=== PATIENT | female | born 1935 | race Caucasian/White ===

== ENCOUNTER 2025-02-11 07:24 | Inpatient (IN) | payer MEDICARE, SELFPAY ==
--- OUTSIDE RECORDS SUMMARY | 2024-03-31 18:59 | XMS_ITS | Continuity of Care Document ---
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 [place] [id number] Signatures:Dieudonne Albert (Patient Services Specialist) (Signed on 03/20/2024 14:25) AuthoredLast Updated: 03/20/2024 14:25 by Dieudonne Albert (Patient Services Specialist) Franky ChaseBmgpmb-37-Qjc-2024 .All information listed on this discharge instruction note has been verballydiscussed with the patient prior to signature and discharge.Once signed, place in the chart. Patient Signature Page You have been provided discharge instruction sheets on the following topics:, Aspirin (Printed); After Knee Replacement: Controlling Swelling (Printed);Discharge Instructions for Total Knee Replacement (Printed); After KneeReplacement: Managing Pain at Home (Printed); [facility] Orthopedic DischargeEducation (Video) (Printed); [facility] Managing Pain When You are Home (Printed);[facility] Orthopedic Discharge Instructions (Printed).FollowMyHealthIf you v e ever been a [facility] patient, you can register now for your[facility] account! There are two easy ways to get started:If you provided your email address to us during registration, please check youremail inbox for an invitation to register for a Patient Portal account. Simplyfollow the click here link in the email for [id number] registrationinstructions.If you did not provide your email address, you can still create a portalaccount and then request access to your records at the following web address:[email or web address] portal registration assistance or questions related to the portal, pleasecontact our FollowMyHealth team at [phone] (Monday-Monday, 9:30 am - 4:30pm) or [email or web address].You may also connect portal accounts utilizing HealthFleet.com and/or [employer] Technologywhich can bring together information from multiple portal accounts for onepatient. To connect your FMHportal account with other portals connected to [employer]Fleet.com or [employer], visitSmart Hydro Power or download [employer] to your mobile device.By signing below you acknowledge receipt of:The above printed topics and understanding of these instructions, as well asthe discharge instructions provided to you.All of your personal belongings that you have brought in to the hospital withyou upon discharge.Patient Signature: Signed: 03/20/2024*The Signature Page remains in the patient's medical record. The remainingpages are given to the patient.*.-Discharged From: Outpatient ServicesDischarged To: Home with Home Health-FOLLOW UP Hammad Tinoco - Orthopaedic Surgery - [phone] scheduledThank you for choosing [facility] HospitalYou may receive text messages from our Transitions of Care Team once you returnhome.The messages will come from the following number: [phone].Please respond promptly so that our team can assist you and address questionsyou may have.Discharge Plan Follow Up:Home with Home HealthProvider Name: danya Provider Contact#: [phone] INSTRUCTIONSDischarge Instruction Sheets Given: , Aspirin (Printed); After KneeReplacement: Controlling Swelling (Printed); Discharge Instructions for TotalKnee Replacement (Printed); After Knee Replacement: Managing Pain at Home(Printed); [facility] Orthopedic Discharge Education (Video) (Printed); [facility] ManagingPain When You are Home (Printed); [facility] Orthopedic Discharge Instructions(Printed)Discharge Orders:No Discharge Orders have been ordered.Additional Physician Instructions: Discharge instructions:1. Continue normal meds and picker tender helper new meds sent to your pharmacy2. WBAT with therapy3. Home health for as needed dressing changes4. Follow up as scheduled5. Continue mechanical means as well as prescribed blood thinner aspirin 81mgonce daily for DVT prophylaxis- Home Health will contact you.- Keep your incision clean and dry.- Weight bearing as tolerated to operative extremity.- Take your aspirin or blood thinner as directed to prevent a blood clot.- You may use ice at home to reduce pain and swelling.- Take your prescribed pain medication as needed.- Do NOT drive until cleared by your doctor.- If you have dean/sutures, they will be removed at your follow upappointment with your doctor or by your home health nurse.- Make sure to get plenty of protein in your diet to promote healing.- Minimize constipation (a common side effect of most pain medications) byensuring that you drink plenty of fluids and consume adequate amounts of fiber.You may need to use over the counter stool softeners like Miralax, Benefiber,or Colace. Discontinue use of your stools become loose or watery.- When to call your doctor: If your pain medication is not relieving your pain. If you are having side effects from any prescribed medications. If you are bleeding or bruising very easily. If you have sharp abdominal pain, or a severe headache. If you think you have an infection or blood clot. If your incision opens or bleeds a lot. If you fall even if you feel you are not hurt.If you are having shortness of breath, chest pain, or think you may be having astroke, CALL 911.For further questions, contact your surgeon at the number listed on page one.If you need to contact the [facility], call [phone].FollowMyHealth:[facility]/API Patient Portal instructions given? Yes, information is provided below,and on the patient signature page.FollowMyHealthIf you v e ever been a [facility] patient, you can register now for your[facility] Patient [facility] account! There are two easy ways to get started:If you provided your email address to us during registration, please check youremail inbox for an invitation to register for a Patient Portal account. Simplyfollow the click here link in the email for [id number] registrationinstructions.If you did not provide your email address, you can still create a portalaccount and then request access to your records at the following web address:[email or web address] portal registration assistance or questions related to the portal, pleasecontact our [facility] team at [phone] (Monday-Monday, 9:30 am - 4:30pm) or [email or web address].You may also connect portal accounts utilizing HealthFleet.com and/or Inv[employer] Information Technologywhich can bring together information from multiple portal accounts for onepatient. To connect your Hportal account with other portals connected to HealthFleet.com or [employer], visitSmart Hydro Power or download [employer] to your mobile device.Patient Belongings Disposition:What belongings did the patient bring? ClothingDIETResume Home DietACTIVITYNo Heavy Lifting, Pushing, or PullingDISCHARGE DIAGNOSISUnilateral primary osteoarthritis, left kneeGOALAdhere to all and return to baseline. This includes following up with listedproviders, adhering to provided printed education materials (, Aspirin(Printed); After Knee Replacement: Controlling Swelling (Printed); DischargeInstructions for Total Knee Replacement (Printed); After Knee Replacement:Managing Pain at Home (Printed); [facility] Orthopedic Discharge Education (Video)(Printed); [facility] Managing Pain When You are Home (Printed); [facility] OrthopedicDischarge Instructions (Printed), take medications as outlined in dischargemedication summary, and complete any ordered discharge test(s).- DISCHARGE MEDICATION SUMMARYMedication Name, Instructions, and Indication for Use ___Biotin - ____ _Calcium - ____ _cephalexin 500 mg oral capsule - 1 cap(s) orally 3 times a day ___Cranberry - ____ _Ecotrin Adult Low Strength 81 mg oral delayed release tablet - 1 tab(s) orallyonce a day ___estradiol 0.5 mg oral tablet - 0.5 tab(s) orally once a day ___levothyroxine 25 mcg (0.025 mg) oral tablet - 1 tab(s) orally once a day (inthe morning) lisinopril 2.5 mg oral tablet - 1 tab(s) orally once a day ___Vitamin B12 - ____ _Vitamin C - ____ _ Last Dose Taken: Last Dose Taken: Last Dose Taken: Last Dose Taken: Last Dose Taken: Last Dose Taken: Last Dose Taken: Last Dose Taken: Last Dose Taken: Last Dose Taken: DISCHARGE PRESCRIPTIONSIf your prescription was e-submitted you can pick it up at listed pharmacyotherwise your nurse or physician will give you a printed prescription.If you are unable to get your prescriptions filled, call your HealthcareProvider as soon as possible. Your care provider needs to be made aware of anymedications you are unable to take as prescribed.Any electronically submitted prescriptions were sent to the following pharmacylocation(s):1. cephalexin 500 mg oral capsule - [id number] - [address] [phone]. Ecotrin Adult Low Strength 81 mg oral delayed release tablet - [id number] [address] [facility] THE FOLLOWING HOME MEDICATIONS You may see a medication above and in the below STOP taking med list. Thisis usually due to the dose changing or the med being discontinued and thenre-ordered. Please clarify with your nurse before leaving if there are anyquestions.Electronic Signatures:Franky Chase (RN) (Signed 03/20/2024 14:07) Authored: Instructions, Med Summary, *Last Updated: 03/20/2024 14:07 by Franky Chase (RN) Kkoi Samuel-20-Mar-2024 Plan of Care:-This document is for Nursing Use Only. DO NOT GIVE TO PATIENT. Nursing is tocomplete Patient Discharge Instructions document to be given to patientToday's Date: 4Discharged from: OutpatientDischarge Diagnosis:For Patient Discharge Instructions: Unilateral primary osteoarthritis, leftkneeFollow up with:Hammad Bello - Orthopaedic Surgery - [phone] scheduledDiet: See GA OrderSupplements: No Nutrition Orders are in the Active status.Activity: See DC OrderFollow up labs: No Discharge Orders have been ordered.Home Meds:Biotin - Calcium -cephalexin 500 mg oral capsule - 1 cap(s) orally 3 times a dayCranberry - Ecotrin Adult Low Strength 81 mg oral delayed release tablet - 1 tab(s) orallyonce a dayestradiol 0.5 mg oral tablet - 0.5 tab(s) orally once a daylevothyroxine 25 mcg (0.025 mg) oral tablet - 1 tab(s) orally once a day (inthe morning)lisinopril 2.5 mg oral tablet - 1 tab(s) orally once a dayVitamin B12 -Vitamin C -New Prescriptions:Any electronically submitted prescriptions were sent to the following pharmacylocation(s):1. cephalexin 500 mg oral capsule - [facility] #[id number] - [address] [facility] - [phone]. Ecotrin Adult Low Strength 81 mg oral delayed release tablet - [facility] #[id number] - [address] [facility] - additional Instructions: Discharge instructions:1. Continue normal meds and picker tender helper new meds sent to your pharmacy2. WBAT with therapy3. Home health for as needed dressing changes4. Follow up as scheduled5. Continue mechanical means as well as prescribed blood thinner aspirin 81mgonce daily for DVT prophylaxis- Home Health will contact you.- Keep your incision clean and dry.- Weight bearing as tolerated to operative extremity.- Take your aspirin or blood thinner as directed to prevent a blood clot.- You may use ice at home to reduce pain and swelling.- Take your prescribed pain medication as needed.- Do NOT drive until cleared by your doctor.- If you have dean/sutures, they will be removed at your follow upappointment with your doctor or by your home health nurse.- Make sure to get plenty of protein in your diet to promote healing.- Minimize constipation (a common side effect of most pain medications) byensuring that you drink plenty of fluids and consume adequate amounts of fiber.You may need to use over the counter stool softeners like Miralax, Benefiber,or Colace. Discontinue use of your stools become loose or watery.- When to call your doctor: If your pain medication is not relieving your pain. If you are having side effects from any prescribed medications. If you are bleeding or bruising very easily. If you have sharp abdominal pain, or a severe headache. If you think you have an infection or blood clot. If your incision opens or bleeds a lot. If you fall even if you feel you are not hurt.If you are having shortness of breath, chest pain, or think you may be having astroke, CALL 911.For further questions, contact your surgeon at the number listed on page one.If you need to contact the [facility], call [phone].E-FORCSE/PDMP:Electronic Signatures:Koki Samuel (ANDREA) (Signed 03/20/2024 11:52) Authored: Instructions, Home Med List, Plan of CareLast Updated: 03/20/2024 11:52 by Koki Samuel (ANDREA) Hammad Bello-20-Mar-20 Immediate Post Operative Note:Date of Procedure: 03-20-2024 Please see IntraOperative Documentation forProcedure Start/Stop Times.Pre-Operative Diagnosis: Osteoarthritis of the right knee.Primary Surgeon: Hammad Bello.Solar Installation Helper(s): Regan.Type of Anesthesia: Spinal.Brief Description of the Procedure: Right Right total knee replacement andautograft bone grafting to the right tibial plateau.Findings: Right knee osteoarthritis.Complications: There were no complications noted.Estimated Blood Loss: 20 cc.Blood Products Administered: None.Specimen Removed: None/not applicable.Prosthetics, grafts, tissues, transplants, or devices implanted: Yes (Pleasesee IntraOperative Documentation for details).Post-Operative Diagnosis: Osteoarthritis of the right knee.Procedure Performed:Other procedure and intervention (see Brief Description).Electronic Signatures for Addendum Section:Hammad Bello) (Signed Addendum 03/20/2024 13:21) Please change all references in the dictation to reflect a left knee includingleft knee osteoarthritis as the preoperative diagnosis, left total kneereplacement, and left knee osteoarthritis as the postoperative diagnosis.Electronic Signatures:Hammad Bello) (Signed 03/20/2024 11:47) Authored: Immediate Post Operative Note, Procedure PerformedLast Updated: 03/20/2024 13:21 by Hammad Bello) Hammad Bello-20-Mar-20 DATE OF SURGERY: March 204PREOPERATIVE DIAGNOSIS: Osteoarthritis of the left knee.POSTOPERATIVE DIAGNOSIS: Osteoarthritis of the left knee.PROCEDURE: Left total knee replacement and autograft bone grafting to the lefttibial plateau.SURGEON: Hammad Bello MDANESTHETIC: Spinal anesthesia.ESTIMATED BLOOD LOSS: 20mLINDICATIONS FOR THE PROCEDURE: The patient is an 88-year-old female with ahistory of slowly progressive pain in the left knee. The patient's symptomshave been refractory to conservative measures including but not limited toactivity modification, oral analgesics, oral anti-inflammatory medications andexercise regimen, a physician-directed therapy program and injection of theknee on at least one occasion. The patient had x-rays, which revealed definitejoint space narrowing as well as agvh-un-nvau contact in the lateralcompartment of the knee with subchondral sclerosis and arthritic bone cystspresent. The patient presents at this time for left total knee replacementafter failure of conservative measures.DESCRIPTION OF PROCEDURE: After obtaining full informed consent, the patientwas brought to the operating room. She was placed on the OR table in supineposition. Spinal anesthetic was administered by the anesthesia service. Ipersonally confirmed that the left lower extremity was the operative extremity. I also confirmed that the patient had received 2g of IV Ancef prior to theprocedure. The left lower extremity was prepped and draped in standard sterilefashion using a ChloraPrep scrub. The tourniquet was inflated to 300mmHg. Inoted a small skin tear that was present preoperatively on the anterior medialknee at about the level of the joint line. This area was about the size of thetip of her small finger. It was not near the incision site and I elected toproceed. The tourniquet was inflated to 300mmHg. The 10 blade scalpel wasused to make a midline incision. The knee was opened through a medialparapatellar incision. The intramedullary guide was used to position thedistal femoral cutting block. The angle was set at 3 degrees of valgusalignment. The oscillating saw was used to make the distal femoral cut. Thefemur was sized to a size 6 component. A size 6 cutting block was placed ontothe distal femur. The oscillating saw was used to make the femoral cuts. Theremaining anterior cruciate ligament was removed using the rongeur. Theposterior cruciate ligament and neurovascular structures were protected with ablunt Hohmann retractor. The combination intramedullary and extramedullaryguide was used to position the proximal tibial cutting block. The oscillatingsaw was used to make the proximal tibial cut. The tibia was sized to a size Dcomponent. The tibia was prepared using the tibial drill. A size D trial gvrh96ed of polyethylene thickness and a size 6 narrow femoral trial were found fahad the appropriate size combination to achieve good ligamentous stability and afull range of motion. The patella was found to track with absolutely nopressure. The patella was examined. I found some osteophytes present. Thesewere removed using the rongeur. The patella was otherwise in good conditionand I elected not to resurface it. The trial components were removed from theknee. The knee was irrigated with pulse lavage irrigation. The proximal tibiawas found to have an arthritic bone cyst in the posterior central portion ofthe tibial plateau. The contents of the cyst were removed using the pituitaryrongeur. Autograft bone graft was obtained from the femoral and tibialcuttings and packed into the defect. This was tamped into position. The sizeD Persona tibial component with 10mm of polyethylene thickness was placed intothe proximal tibia. A size 6 narrow Persona femoral component was placed ontothe distal femur. All of the components were made by the CecilyCyberVision Text.The knee was placed in full extension. The tourniquet was deflated for totaltourniquet time of 32 minutes. Hemostasis was obtained using theelectrocautery. The medial parapatellar incision was closed using #1 PDS. Thesubcutaneous tissues were closed using 2-0 Monocryl. Skin was closed using 0Prolene due to the patient's very thin skin. A sterile dressing was applied.The patient tolerated the procedure well. There were no complications and thepatient was returned to the recovery room in stable condition. While inrecovery room, she was found to have good distal pulses and capillary refill aswell as intact sensory and motor function in the peroneal and tibial nervedistribution of the left lower extremity. Hammad Bello M.D. T: 03/20/2024 10:03:26JobID: [id number]: [id number] Signatures:Hammad Bello) (Signed on 03/20/2024 11:40) AuthoredInterMEDHAT reina) (Entered on 03/20/2024 10:03) EnteredLast Updated: 03/20/2024 11:40 by Hammad Bello) Charo Hopson-20-Mar-2024 [facility] ReassessmentDischarge PlanningCase manager product anticipates discharge plan will be: Home with Home HealthProvider Name: danya. Provider Contact#: [phone] Choice Education: Discussed with the patient and/or the individualacting in the patients behalf, the patients right to choose a home health careprovider. A list of providers which includes their reported quality measureswas presented to the patient and/or the individual acting on the patientsbehalf.Interdisciplinary Rounds Notes: Danya [place] [facility] [phone] in ECINIs the patient ready for discharge? [facility] Discharge Plan CoordinationPending-Patient is NOT READY for discharge.Electronic Signatures for Addendum Section:Charo Hopson (RN) (Signed Addendum 03/20/2024 14:28) Net Making Supervisor notified patient will need a RW; ordered and DME Dieudonne made awareto deliver to PACU.Electronic Signatures:Charo Hopson (CHRISTOPHER) (Signed 03/20/2024 09:21) Authored: [facility] Reassessment, *Last Updated: 03/20/2024 14:28 by Charo Hopson (CHRISTOPHER) Igor Curry-20-Mar-2024 PRE Proc:INITIAL COUNT: Counted Items Soft Items, SharpsPersonnel Performing Count Igor Curry (RN)Jelly Jackson (SCAFFOLDING HELPER)PATIENT ASSESSMENT: Identifiers Patient Name, Date of (), Visit IDID Band Present on non-operative limbPATIENT PREOP ASSESSMENT Awake, Alert and OrientedPERIPHERAL IV 1: Location RightDressing Clean, Dry, Intact, Pain Free, Infusion Without Resistance, SkinNormal MetGauge 20 gaugeMaintenance Flushed, Continuous infusateDate of Dressing Change [id number] Info New IV StartInsertion Date [id number] Management for Insertions DistractionCIRC PREOP VERIFICATION: Verifications NPO Status Confirmed, History andPhysical on Chart and Updated Per Policy, Consent Signed, No Abbreviations,Agrees with Surgeon Order and Schedule, The Risks Benefits and AlternativeStatement Signed by Surgeon, Correct Procedure, Site and Level Verified,Special Equipment and/or Devices Available, Implants VerifiedVerified By Igor Curry (RN)Procedure:PATIENT POSITION SupinePATIENT WAS POSITIONED PER [facility] POLICIES AND PROCEDURESOR Table Standard OR TableTable Overlay NonePOSITIONING All Positioning Equipment Checked for Safety Per ManufacturerGuidelines, Positioning Validated by Physician, Breast and Nipples Free FromPressureBODY POSITIONING Cradle Foam Headrest, Foam Padding, Wrist SupportARM POSITIONING Arms Padded and Secured on Armboards, Arms Padded Bilateral andAngled Less Than 90 Degrees with Palms Up, Elbows PaddedPositioned By Freddy MossSAFETY DEVICES Safety StrapSafety Strap Location ChestSURGICAL SKIN ANTISEPSIS: Agent Chloraprep Dried 3 Min Prior to DrapeSkin Preparation Region left kneeSkin Preparation Body Part Operative SiteLaterality/Aspect LeftSkin Preparation Performed By Igor Curry (RN)TIME OUT: Anesthesia/Senior Ruby Developer Review Anesthesia and Senior Ruby Developer VerifiedPatient ID Prior to InductionFire Risk Score 2Staff Members Participating in Time Out mary foster (null)daren cameron (null)mitchell moreira (null)Jelly Jackson (SCAFFOLDING HELPER)Amanda Lynn (SCAFFOLDING HELPER)Igor Curry (RN)chloe samuel (null)Liliana Fernandez (MIX HOUSE TENDER)Hammad Bello)Fire Risk Policy Protocol Implemented Per Policy Checklist Verifications Patient Verified, Accurate Consent Form Signed byPatient and Surgeon, Agreement on Procedure to be Performed, Patient PositionVerified, Correct Site(s) and Side(s) Marked and Visible After Draping,Antibiotic Administration Verified, Equipment, Devices and Implants AvailableELECTROSURGICAL UNIT: Unit ID Number [id number] Setting 50Coag Setting 50Grounding Pad Site ThighLaterality RightPad Applied By Igor Curry (RN)Skin Condition Under Grounding Pad Intact, Non-reddenedWARMED BLANKET: Sites Upper BodyFORCED AIR BLANKET: Unit ID Number [id number] Sites Upper BodySetting as per CRNAVENOUS STASIS PREVENTION: Antiembolism Stockings TEDSSEQUENTIAL COMPRESSION DEVICE: Site Left LegMedication:MEDICATION #1: Name Ketorolac 15Mg/ML InjectionDose l4Pezqr Operative SiteAdministered By Hammad Bello)MEDICATION #2: Name Marcaine 0.5% W/Epi [id number] 50ML Mdv BupivacaineSensorcaineDose w6Tuqco Operative SiteAdministered By Hammad Bello)MEDICATION #3: Name Saline 0.9% 1000ML Bottle [id number] i6Scseu Dispensed to FieldAdministered By Hammad Bello)MEDICATION #4: Name Tranexamic Acid (Txa) Injection 1Gm/10MLDose y4Twges Dispensed to FieldAdministered By Hammad Bello ()MEDICATION #5: Name Solution Irrigation 0.9% Sodium Chloride 3000mlArthromatic_704148Dose u0Cbvol IrrigationAdministered By Hammad Bello)MEDICATION #6: Name Water Sterile 1000ml Plastic Pour Bottle Latex Free_704143Dose l6Vglbz Dispensed to FieldAdministered By Hammad Bello ()Counts:INITIAL COUNT: Counted Items Soft Items, SharpsPersonnel Performing Count Igor Curry (RN)Jelly Jackson (SCAFFOLDING HELPER)FIRST COUNT: Count Results Sponge Count Correct, Sharps Count CorrectPersonnel Performing First Count Igor Curry (RN)Jelly Jackson (SCAFFOLDING HELPER)Surgical Team Notified of Count Results YesFINAL COUNT: Count Results Sponge Count Correct, Sharps Count CorrectPersonnel Performing Final Count Igor Curry (RN)Jelly Jackson (SCAFFOLDING HELPER)Surgical Team Notified of Count Results YesPOST Proc:EVALUATIONS: Positioning Skin and Tissue Integrity UnchangedEVALUATIONS: Skin Condition Under ESU Grounding Pad(S) Post Procedure Intact,Non- reddenedPOSTOP SUMMARY: Specimen Reconciliation Performed NoEndoscope Used NoWOUND CLASSIFICATION 1 - CleanSurgery Type Non-TraumaDRESSING: Status AppliedBody Site Operative SiteType 4 x 4 Gauze, XeroformTRANSPORT: Personnel Involved in Transport Anesthesia Provider and CircTransport Method BedTRANSITION OF CARE/HAND-OFF REPORT TO PACUReport Given To PACU NurseCase Detail:CASE DETAILS: Confirmed Details Below YesSurgical Case Number Case [id number] Case DetailsSurgical Case Information:Case Status Patient in RoomAnesthesia Type GeneralPlanned Procedures:Name Provider Preference Card Description Is PrimaryKnee Arthroplasty Total Hammad Bello) Knee Arthroplasty Total -HAMMAD BELLO LEFT TOTAL KNEE ARTHROPLASTY truePerformed Procedures:Name Provider Preference Card Description Is PrimaryKnee Arthroplasty Total Hammad Bello) Knee Arthroplasty Total -HAMMAD BELLO LEFT TOTAL KNEE ARTHROPLASTY trueParticipants:Role Name Comments Time In Time OutAnesthesiologist Lani Quintana () Mar 20 2024 7:38AM Mar 20:26AMCRLiliana Gann (MIX HOUSE TENDER) Mar 20 2024 7:38AM Mar 20 2024 9:26AMPrimary Surgeon Hammad Bello () Mar 20 2024 7:38AM Mar 20 2024 9:22AMOther chloe samuel (null) Mar 20 2024 7:38AM Mar 20 2024 9:22AMCirculator Igor Curry (RN) Mar 20 2024 7:38AM Mar 20 2024 9:22AMScrub Amanda Lynn (SCAFFOLDING HELPER) Mar 20 2024 7:38AM Mar 20 2024 9:22AMScrub Jelly Sal (SCAFFOLDING HELPER) Mar 20 2024 7:38AM Mar 20 2024 9:22AMVendor mitchell Ellis (null) Mar 20 2024 7:38AM Mar 20:22AMOther daren cameron (null) Mar 20 2024 7:38AM Mar 20 2024 9:22AMOther mary foster (null) student nurse Mar 20 2024 7:38AM Mar 20:22AMCirculator Christie Bydr (RN) am break Mar 20 2024 9:08AM Mar [id number]:Type TimeRegistration / Check In Mar 20 2024 5:31AMPatient Sent ForPreOp Arrival Mar 20 2024 5:47AMPreOp Start Mar 20 2024 7:27AMPreOp End Mar 20 2024 7:37AMIn Room Mar 20 2024 7:38AMOut of Room Mar 20 2024 9:22AMAnesthesia Start Mar 20 2024 7:38AMAnesthesia End Mar 20 2024 9:26AMAnesthesia Induction Mar 20 2024 7:54AMAnesthesia ReadyTime Out Mar 20 2024 8:19AMProcedure Start Mar 20 2024 8:20AMProcedure End Mar 20 2024 9:16AMFirst Procedure TimeSecond Procedure TimeThird Procedure TimeLocal/Sedation StartLocal/Sedation EndPACU StartPACU EndPACU Procedure StartPACU Procedure EndPACU Ext Stay StartPACU Ext Stay EndPhase II StartPhase II EndReady for DischargeTime of ExpirationPhase II PP Time StartPhase II PP Time EndRegistration / Check In Mar 20 2024 5:34AMOutcomes/POC:O.725 Psychosocial health is maintained at or improved from baseline MetO.30 Free from injury related to an incorrect procedure performed MetO.290 Thermoregulation maintained core body temperature at desired range MetO.80 Free from injury related to positioning MetO.120 Free from injury related to transfer/transport within the perioperativeenvironment MetO.60 Free from injury caused by equipment, medical supplies, or instrumentationMetO.50 Free from harm related to team communication throughout the continuum ofperioperative care MetO.20 Free from injury related to unintended retained surgical item MetO.70 Free from injury caused by electrical sources MetO.10 Free from injury related to a perioperative thermal source MetO.100 Free from injury related to a perioperative chemical source MetO.130 Free from harm related to medications administered within theperioperative environment MetElectronic Signatures:Igor Curry (CHRISTOPHER) (Signed 03/20/2024 09:34) Entered: Counts, Case Detail Authored: PRE Proc, Procedure, Medication, Counts, POST Proc, Case Detail,Outcomes/POCLast Updated: 03/20/2024 09:34 by Igor Curry (CHRISTOPHER) Hammad Bello-20-Mar-20 24 Page 1Discharge Reconciliation DocumentReconciliation Type: Discharge requested on behalf of Hammad Bello(Physician) done by Hammad Bello)Discharge - Reconciliation: 03/20/2024 07:54 by: Hammad Bello)Home Medications Entered HOME MEDICATIONS AT DISCHARGE Date ReconciliationComment/ Additional Information Biotin 03/13/2024 09:24 Biotin 03/13/2024 09:24 Biotin is continued Calcium 03/13/2024 09:24 Calcium 03/13/2024 09:24 Calcium iscontinued Cranberry 03/13/2024 09:24 Cranberry 03/13/2024 09:24 Cranberry iscontinued estradiol 0.5 mg oral tablet 0.5 tab(s) orally once a day 01/13/2024 00:00estradiol 0.5 mg oral tablet 0.5 tab(s) orally once a day 01/13/2024 00:00estradiol 0.5 mg oral tablet is continued levothyroxine 25 mcg (0.025 mg) oral tablet 1 tab(s) orally once a day (in themorning) 12/18/2023 00:00 levothyroxine 25 mcg (0.025 mg) oral tablet 1tab(s) orally once a day (in the morning) 12/18/2023 00:00 levothyroxine 25mcg (0.025 mg) oral tablet is continued lisinopril 2.5 mg oral tablet 1 tab(s) orally once a day 12/22/2023 00:00lisinopril 2.5 mg oral tablet 1 tab(s) orally once a day 12/22/2023 00:00lisinopril 2.5 mg oral tablet is continued Vitamin B12 03/13/2024 09:24 Vitamin B12 03/13/2024 09:24 Vitamin B12is continued Vitamin C 03/13/2024 09:24 Vitamin C 03/13/2024 09:24 Vitamin C iscontinuedCurrent Orders Date HOME MEDICATIONS AT DISCHARGE Date Reconciliation Comment/Additional Information Acetaminophen 500mg Tablet (Tylenol), Give: 1000 mg PO Q8H 1:58 Acetaminophen 500mg Tablet is not required Acetaminophen 500mg Tablet (Tylenol), Give: 1000 mg PO Q8H PRN Minordiscomfort/aches. If more than 1 medication is ordered for this PRN Reason, thepatient may indicate their preference. 03/19/2024 21:58 Acetaminophen 500mg Tablet is not required Acetaminophen 650mg Suppos (Tylenol), Give: 650 mg Rectal Q8H PRN Minordiscomfort/aches. If more than 1 medication is ordered for this PRN Reason, thepatient may indicate their preference., Special Instructions: If patientunable to take PO. 03/19/2024 21:58 Acetaminophen 650mg Suppos is notrequired Acetaminophen 650mg Suppos (Tylenol), Give: 650 mg Rectal Q8H, SpecialInstructions: If patient unable to take PO. 03/19/2024 21:58Acetaminophen 650mg Suppos is not required Albuterol 2.5mg Soln for Nebulizer ( Ventolin, Proventil), Give 2.5 mgAerosol ONCE PRN Wheezing, Comments: IN PRE OP HOLDING. ANESTHESIA PRE OPORDERS., Order frequency may be adjusted per [facility] Respiratory Care protocol.03/20/2024 05:55 Albuterol 2.5mg Soln for Nebulizer is not required Albuterol-Ipratropium 3ml Soln for Nebulizer (DuoNeb), Give 3 ml AerosolPRE-OP, Comments: IN PRE OP HOLDING. (ANESTHESIA PRE OP ORDERS), Orderfrequency may be adjusted per [facility] Respiratory Care protocol. 03/20/2024 05:55 Albuterol-Ipratropium 3ml Soln for Nebulizer is not required Aspirin 81mg Chewable Tab , Give: 81 mg PO daily (once a day) 1:58 Aspirin 81mg Chewable Tab is not required Bisacodyl 10mg Suppos , Give: 10 mg Rectal daily (once a day) PRNConstipation, Special Instructions: If PRN Senna conc tab is ineffective.03/19/2024 21:58 Bisacodyl 10mg Suppos is not required Bisacodyl 10mg Suppos , Give: 10 mg Rectal every other day, SpecialInstructions: Hold for loose stools. Patient may refuse. 03/19/2024 21:58 Bisacodyl 10mg Suppos is not required ceFAZolin Injectable. (Kefzol, Ancef), Give 2 gm IV. PRE-OP, Infuse Over: 5Minute(s), Special Instructions: For patients 120 kg or less., Comments: MAYBE ADJUSTED PER [facility] ANTIBIOTIC SURGICAL PROPHYLAXIS PROTOCOL. 3:32 ceFAZolin Injectable. is not required ceFAZolin Injectable. (Kefzol, Ancef), Give 1 gm IV Q8H. Stop After 2 Doses03/19/2024 21:58 ceFAZolin Injectable. is not required dexAMETHasone Inj (Decadron), Give 6 mg IV ONCE, Infuse Over: 2 Minute(s), Comments: If ondansetron (Zofran) is ineffective. Hold if patient is diabeticor if patient has received decadron within the last 4 hours. (FOR USE IN PACUONLY). 03/20/2024 06:57 dexAMETHasone Inj is not required Estradiol 0.5mg Tab (Estrace), Give: 0.25 mg PO daily (once a day)03/19/2024 21:58 Estradiol 0.5mg Tab is not required Insulin Lispro (Sliding Scale) (Humalog/Admelog), Subcu. ONCE PRN elevatedblood sugar, Give - 2 unit(s) if Accucheck BG 181 - 200, Give - 3unit(s) if Accucheck BG 201 - 250, Give - 4 unit(s) if Accucheck BG 251 -300, Give - 6 unit(s) i 03/20/2024 06:57 Insulin Lispro (SlidingScale) is not required Levothyroxine Oral (Synthroid/Levoxyl), Give: 25 mcg PO daily (once a day)03/19/2024 21:43 Levothyroxine Oral is not required Lisinopril 2.5mg Tab (Zestril, Prinivil), Give: 2.5 mg PO daily (once a day) 03/19/2024 21:43 Lisinopril 2.5mg Tab is not required Melatonin 3mg Tab , Give: 3 mg PO QHS PRN Insomnia, Special Instructions:May repeat X 1 in one hour if ineffective. 03/19/2024 21:58 [id number] Tab is not required Ondansetron 4mg Oral Dissolving Tab (Zofran ODT), Give: 4 mg PO Q6H PRNNausea/vomiting, Special Instructions: First Line. 03/19/2024 21:58Ondansetron 4mg Oral Dissolving Tab is not required oxyCODONE Oral (Roxicodone), Give: 5 mg PO Q4H PRN Pain, SpecialInstructions: May repeat x 1 anytime after 30 minutes in the dosing frequencyinterval if pain unrelieved and level of sedation 1-2. If dose is repeated asoutlined above, may place order 03/19/2024 21:58 oxyCODONE Oral isnot required oxyCODONE Oral (Roxicodone), Give: 5 mg PO Other PRN PRN Pain, Stop After 2Doses, Special Instructions: May repeat x 1 dose anytime after 30 minutes iflevel of sedation = 1-2 and pain is unrelieved. Maximum of 10 mg., Comments:(FOR USE IN PACU ONLY 03/20/2024 06:57 oxyCODONE Oral is not required Polyethylene Glycol Oral Powder (17 gm packet) (eqv to Miralax), Give 17 gmPO daily (once a day), Special Instructions: Hold for loose stools.03/19/2024 21:58 Polyethylene Glycol Oral Powder (17 gm packet) is notrequired Promethazine 25mg Tab (Phenergan), Give: 25 mg PO Q6H PRN Nausea/Vomiting,Special Instructions: Third Line. 03/19/2024 21:58 Promethazine 25mgTab is not required Scopolamine Patch (Transderm-Scop), Apply 1 patch Topical PRE-OP PRN Nausea,Special Instructions: For Postop nausea. Remove 24 hours after application.,Comments: In Pre-Op area only. Give ONLY after approval by theanesthesiologist. 03/20/2024 05:55 Scopolamine Patch is not required Senna 8.6 mg Tab (Senokot), Give 1 tab PO daily (once a day) PRN Constipation 03/19/2024 21:58 Senna 8.6 mg Tab is not required Senna 8.6 mg Tab (Senokot), Give 1 tab PO BID, Special Instructions: Holdfor loose stools. 03/19/2024 21:58 Senna 8.6 mg Tab is not required Tranexamic Acid Surgical Topical 1 gm/30 mL NS , Give 1 gm Topical. ONCE, inNS 20 ml, Comments: Total Volume 30 mL. 03/18/2024 23:32 TranexamicAcid Surgical Topical 1 gm/30 mL NS is not requiredHome Medications Added During Discharge Reconciliation cephalexin 500 mg oral capsule 1 cap(s) orally 3 times a day ; Active Ecotrin Adult Low Strength 81 mg oral delayed release tablet 1 tab(s) orallyonce a day ; ActiveHome Medications at time of Discharge Reconciliation: 03/20/2024 07:54 Biotin ; Active Calcium ; Active cephalexin 500 mg oral capsule 1 cap(s) orally 3 times a day ; Active Cranberry ; Active Ecotrin Adult Low Strength 81 mg oral delayed release tablet 1 tab(s) orallyonce a day ; Active estradiol 0.5 mg oral tablet 0.5 tab(s) orally once a day ; Active levothyroxine 25 mcg (0.025 mg) oral tablet 1 tab(s) orally once a day (in themorning) ; Active lisinopril 2.5 mg oral tablet 1 tab(s) orally once a day ; Active Vitamin B12 ; Active Vitamin C ; Active Koki Samuel-19-Mar-2024 Page 1Admission Reconciliation DocumentReconciliation Type: Admission requested on behalf of Koki Samuel(Physician Solar Installation Helper) done by Koki Samuel (PA)Admission - Reconciliation: 03/19/2024 21:43 by: Koki Samuel (ANDREA)Home Medications Entered Last Dose Taken Reconciled with current OrderReconciliation Comment/ Additional InformationBiotin 03-19-2024 Reviewed and Held on AdmissionCalcium 03-19-2024 Reviewed and Held on AdmissionCranberry 03-19-2024 Reviewed and Held on Admissionestradiol 0.5 mg oral tablet 0.5 tab(s) orally once a day [id number] 0.5mg Tab (Estrace) Give: 0.25 mg PO daily (once a day) estradiol0.5 mg oral tablet continued as the inpatient order Estradiol 0.5mg Tablevothyroxine 25 mcg (0.025 mg) oral tablet 1 tab(s) orally once a day (in themorning) 03-19-2024 Levothyroxine Oral (Synthroid/Levoxyl) Give: 25 mcg POdaily (once a day) levothyroxine 25 mcg (0.025 mg) oral tablet continued as theinpatient order Levothyroxine Orallisinopril 2.5 mg oral tablet 1 tab(s) orally once a day [id number] 2.5mg Tab (Zestril, Prinivil) Give: 2.5 mg PO daily (once a day)lisinopril 2.5 mg oral tablet continued as the inpatient order Lisinopril2.5mg TabVitamin B12 03-19-2024 Reviewed and Held on AdmissionVitamin C 03-19-2024 Reviewed and Held on AdmissionAdditional Current OrdersAcetaminophen 500mg Tablet (Tylenol) Give: 1000 mg PO PRE-OPceFAZolin Injectable. (Kefzol, Ancef) Give 2 gm IV. PRE- OP Infuse Over: 5Minute(s) Special Instructions: For patients 120 kg or less. Comments: MAY BEADJUSTED PER [facility] ANTIBIOTIC SURGICAL PROPHYLAXIS PROTOCOL.Celecoxib 200mg Cap (Celebrex) Give: 200 mg PO PRE-OPMed Order Communication ANTIBIOTICS MAY BE ADJUSTED PER [facility] ANTIBIOTICSURGICAL PROPHYLAXIS PROTOCOL.Tranexamic Acid Surgical Topical 1 gm/30 mL NS Give 1 gm Topical. ONCE in NS20 ml Comments: Total Volume 30 mL. Mckenzie Awad-14-Mar-2024 Albumin 3.4 Prealbumin 19.9 results at [facility], high protein drinks started BID andmultivitamin QD started per MD request. Spoke with patient at this time andverbalizes understanding.Electronic Signatures:Mckenzie Awad (RN) (Signed on 03/14/2024 11:10) AuthoredLast Updated: 03/14/2024 11:10 by Mckenzie Awad (RN) Yane VillarrealNnbwms-2-Hin-2024 Outpatient Admission History NoteGeneralPatient IdentityPreferred Pronoun: She/HerGender Identity: FemaleHealth LiteracyDo you learn better if you read it, hear it or do it hands on yourself?ReadingHearingDoingHow often do you need to have someone help you when you read instructions,pamphlet or other written material from you doctor or pharmacy?NeverHealth Literacy Score: 1CommunicationPatient's Preferred Language: EnglishIs patient incapacitated or does patient have a legal branch service representative? NoAdmission Height and WeightHeight: 63 inch 160 cmWeight: 101.4 lb 46 kg Weight Method: Standing and Digital ScaleBMI: 17.96 kg/c7KhjittfhbLrrpaipyd Allergy Summary is current as of 03-13-2024 09:15See Allergies Summary for most current AllergiesNo Known AllergiesAdvance DirectiveAdvance Directive found in Scan Docs for Current Visit: The Following AdvancedDirective Document(s) can be viewed in Documents Tab for this Visit:1. Advance Directive Determination (Scanned)Advance Directive found in Scan Docs for Historical Visits: The FollowingAdvanced Directive Document(s) can be viewed in Documents Tab for HistoricalVisits. Change Display Format to 'Advanced Directives' to view.1. Advance Directive Determination (Scanned) [id number] - 4Does patient have an Advance Directive/Living Will? NoHas the patient indicated they would like to complete a new AD, explain thesubstance for existing AD or need help of any type with an AD? NoPrihill [facility] servicesy Care ProviderENEDINA LANG Specialist Physician(s)Do you have any local physicians? YesOther Physician: MiriamSpecial Requests/NeedsForensic patient: NoDischarge PlanningWhat are the patient's living arrangements? HomeImmunizations/ScreensTravel HistoryHave you traveled outside of the [place] in the last 3 months? NoHealth ManagerDiphtheria: Tdap Given: [id number]: Tdap Given: 74-31-2221Cfgn: Tdap Given: [id number]: Tdap Given: 72-34-9201Tjc VaccineDid the patient receive the Flu vaccine this season? YesCOVID-19 ScreeningHave you tested positive for COVID-19 in the past 90 days?NoTB ScreenAdult: Dx TB or r/o TB. PEDS: Pt/family member has TB No history of TBUnexplained weight loss: No weight lossAnorexia: No anorexiaFatigue: No FatiguePersistent cough: No persistent coughFever: No persistentNight Sweats: No Night sweatsHemoptysis: No hemoptysisExposure to TB: No exposure in past 2 yearsNew Converter: No conversion of PPDUpper lobe infiltrates noted on current CXR: Unknown, No CXR report availableOther infiltrates on current CXR: Unknown, No CXR report availableCavitary Disease noted on available CXR: Unknown, No CXR report availableTB Score: 0Patient HistoryHistoryHistory Obtained From: PatientInterview obtained from: PatientPatient hospitalized in the last 30 days? NoHistory of Diabetes? NoPregnancyAre you ? NoDate of last Menstrual Period: HysterectomyAnesthesia HistoryHave you or any family member received anesthesia in the past? SelfDid you have any problems with the anesthesia? Yes (specify below)Reported problems: Other (explain) (N/V)Pre-Admission Testing (PAT)Procedure Scheduled: LEFT TOTAL KNEE ARTHROPLASTYPlanned mode of arrival: AmbulatoryHave you ever received any dye or contrast? YesAny reactions or problems? NoIs there a History of Any of the FollowingHave you ever been told that you had a difficult intubation: NoDo you have difficulty swallowing? NoDo you have a history of motion sickness or nausea/vomiting post surgery? YesHave you been treated for a chronic pain condition? YesAre you sensitive to pain medication or sleeping pills? YesAre you claustrophobic or do you have an anxiety condition? NoDo you have difficulty walking? NoDo you have difficulty walking two blocks at a normal pace? NoDo you have difficulty walking up two flights of stairs? YesDo you sleep with more than one pillow? YesDo you wake up suddenly short of breath? NoHave you had a cold or the flu within the past two weeks? NoAre you currently in a drug study? NoPre-Op AnesthesiaAnesthesia Comments: ERAS and PONVAnesthesia Coordinator Consult: NoImplants: Dental Implants and Shoulder ProsthesisShoulder Laterality: BilateralBeta Bryan: Patient denies taking a Beta BlockerMedications to Take: Hold all vitamins and supplements the week prior tosurgery.Hold Lisinopril the morning of surgery.Verification: Consent signed, no abbreviations, agrees with surgeon order andpatent states understanding, Labs, EKG, XRAY obtained per surgeon's ordersand anesthesia protocol, Patient verified the correct procedure, Patientverified the correct side and/or level, if applicable, [facility] patient ID bandinformation verified for accuracy, Patient stated full name, accurate spellingof name and birthdate, PAT testing completed per anesthesia protocol andPatient verbalized understanding of pre-surgical instructionsLearning Assessment: Verbalizes understanding directions, map and time toarrive, Verbalizes understanding of the Fasting Guidelines, Verbalizesunderstanding of postop pain & pain control VAS and Expressed concernsPAT Instructions: Carb loading drinks and instruction sheet given to patient-if diabetic drink 10oz of water as instructed., CHG 4% solution given withenclosed instructions for use, Clear liquids to stop at, Directions and mapgiven to patient, ERAS class completed, Fasting Guidelines, except meds,Infection Prevention Brochure given to patient, Instructed about postop painand pain control scale, Instructed about symptoms to report prior to surgery,Instructed about the anesthesia process, Instructed to arrange for postoptransportation home, Instructed to leave all valuables at home, Instructed toremove all jewelry and body piercings prior to surgery and Smoking CessationEducation not applicablePatient Record RequestPatient Records Requested: NoInformation Given: Pre-procedural instructions, and PAT/Short Stay instructionsregarding valuablesGeneral InformationVision/Hearing/Dental/Hand DominanceDo you have any vision issues? NoDo you have any hearing issues? YesWhat are your hearing issues? Hearing Aid right and Hearing Aid leftDo you wear dentures? NoAny dental repairs or impairments present? ImplantHand Dominance: RightFall HistoryHave you fallen before you came to the hospital? NoDo you have difficulty getting to a sitting position? NoDo you think you have problems with balance? NoDo you hold onto furniture when you walk? NoAre you afraid of falling? NoBlood Transfusion HistoryHave you ever received blood or blood products in the past? NoWould you accept blood or blood products if indicated? YesHave you ever had a positive blood antibody result?: NoAntibody Screen: We could not find an antibody result on this patient.Pain HistoryHistory of Pain: Chronic painSubstance Use HistoryNicotine/Smoking StatusDo you currently smoke/use a nicotine product? Former Smoker - no smoking inthe past yearWhat is the type of nicotine product you use/used? Traditional cigarettes StopDate: [id number] UseHow often do you have a drink containing alcohol? 2-4 times a monthHow many standard alcohol drinks do you consume during a typical day? 1 or 2How often do you have six or more drinks on one occasion? NeverWhen was your last drink? 2 days agoAlcohol Pre-Screen Score: 2Substance UseIs patient currently using any substances/drugs? NoMedical/Surgical HistoryBleeding Problems: NoneBone/Joint Problems: NoneHistory of Cancer: NoneCardiac/Vascular Problems: Hypertension (Denies chest pain/sob.Pilates 3 times a week, yoga 3-4 times a week, swims every day, gardening)Gastrointestinal Problems: NoneRenal/Genitourinary Problems: NoneMuscular Problems: NoneActivities of Daily Living: Difficulty climbing up stairs and Difficultyclimbing down stairsCognitive Ability: Denies difficultyNeurological Problems: NoneRespiratory Problems: NoneThyroid Problems: HypothyroidismHypothyroidism is: controlledInfectious Disease Problems: NoneDVT Additional Screen: Planned SurgeryDVT Score: 3Behavioral Health History: DeniesSurgery History1. tonsillectomy . urethral . Retinal . hysterectomy . small bowel resection . left shoulder . right shoulder 2016Home Medications and Preferred Pharmacy ReviewHome Medication Status: The Patient's Home Med List is CompletePreferred Rx this visit: Launch OMR to review Home Meds & add Pharmacy.Do any medications require follow up? NoFinal ReviewOutpatient Admission Note Reviewed and Completed: I have verified that thisnote is complete and accurate.Electronic Signatures:Yane Park (RN) (Signed 03/13/2024 09:31) Authored: General, Immunizations/Screens, Patient History, Medical History,Med Hx/Pre-Anesthesia/Final Review, PreviewLast Updated: 03/13/2024 09:31 by Yane Park (RN) Problems Encounter for immunization(Z 23) Onset:02-Aug-2023 Comments:Unknown how many vaccine doses have been received. Entered from Emergency Triage Note. Allergies and Adverse Reactions No Known Allergies(Allergy) Reaction:Unknown Codeine(Allergy) Reaction:GI distress; Headac he Medications Lactated Ringers 1000ml(Lactated Ringers) Quantity:1 Lani Quintana Start:47-Mot-8964Coi:2023 Ketorolac 15mg/ml Inj(Ketorolac) Quantity:1 [place] Mindi Bello Start:34-Bbi-1022Dzr:2023 Celecoxib 200 mg Cap(CeleBREX) Quantity:1 Hammad Mindi Bello Start:26-Zrw-5485Fnj:2023 Acetaminophen 500 mg Tab(Acetaminophen ) Quantity:2 Hammad Mindi Bello Start:83-Gbo-0298Fme:2023 Tqomvyb-Mywmkztgqz-qjkdg Pertussis PF Inj(Adacel) Quantity:1 Kenton Robbins Start:17-Jcn-3766Fed:2023 Lidocaine 1% / Epi (1:100,000) 20ml Inj(Lidocaine 1% / Epi (1:100,000)) Quantity:0.05 Kenton Robbins Start:27-Oir-6975Jjm:2023 Procedures Arthrp kne condyle&platu med ial&lat compartments; (-RT Right side of body) Date:20-Mar-2024 Injection, anesthetic agent; femoral ner ve, single Date:20-Mar-2024 Simple repair f/e/e/n/l/m 2.5cm/< Date:2 13-Jul-2023 Electrocardiogram AdultResult:Test Reason : Pre-op other - Cardiac EvalBlood Pressure : 163/75 mmHGVent. Rate : 63 BPM Atrial Rate : 63 BPM P-R Int : 174 ms QRS Dur : 84 ms QT Int : 406 ms P-R-T Axes : 63 -58 57 degrees QTc Int : 415 msNormal sinus rhythmLow voltage QRSLeft anterior fascicular blockCannot rule out Anterior infarct (cited on or before 13-MAR-2024)Abnormal ECGWhen compared with ECG of 13-MAR-2024 10:03,No significant change was foundConfirmed by Jef Grider MD ([id number]) on 03/20/2024 10:46:12 AMReferred By: Confirmed By: Jef Grider MD Date:20-Mar-2024 Status:Completed Electrocardiogram AdultResult:Test Reason : Pre-op other - Cardiac EvalBlood Pressure : */* mmHGVent. Rate : 59 BPM Atrial Rate : 59 BPM P-R Int : 156 ms QRS Dur : 78 ms QT Int : 398 ms P-R-T Axes : 32 -55 36 degrees QTc Int : 394 msSinus bradycardiaLeft anterior fascicular blockPossible Anterior infarct , age undeterminedAbnormal ECGNo previous ECGs availableConfirmed by Jef Grider MD ([id number]) on 03/14/2024 1:42:07 PMReferred By: Confirmed By: Jef Grider MD Date:13-Mar-2024 Status:Completed CT Spine Cervical W/OResult:Procedure: LCT - CT Spine Cervical WOReason: fall/trauma Procedure Date: 08/02/2023 Accession Number: [id number]:CT Spine Cervical WOCLINICAL INDICATION: Female, 87 years old. fall/traumaTECHNIQUE: CT of the cervical spine with multiplanar reformations. This exam was performed according to our departmental dose-optimization program which includes automated exposure control, adjustment of the mA and/or kV according to patient size and/or use of iterative reconstruction technique.COMPARISON: NoneCONTRAST: NoneFINDINGS:[Markedly advanced chronic multilevel arthritic changes. C2-T1 shows degenerative disc disease throughout with disc narrowing at all levels and hypertrophic spurring throughout with subchondral sclerosis and erosive changes of the vertebral endplates at these levels. Slight anterior spondylolisthesis C7 upon T1 likely ligamentous laxity with facet joint arthropathy at this level. No acute fracture or dislocation.IMPRESSION:1. Markedly advanced cervical spondylosis. No acute fractureElectronically signed by: Sam Quinonez MD 08/02/2023 03:43 PM EDT Workstation: [id number] by: Aug 02 2023 3:43PTranscribed by: Aug 02 2023 3:43PReviewed by: Date:02-Aug-2023 CT Head W/OResult:Procedure: LCT - CT Head WOReason: 1. Trauma/Subdural Hematoma Procedure Date: 08/02/2023 Accession Number: [id number] Dose: All CT scans at [facility] are performed using dose optimization techniques as appropriate to a performed exam including but not limited to the following: automated exposure control, adjustment of the mA and/or kV to patient size (this includes techniques or standardized protocols for targeted exams where dose is matched to indication/reason for exam; i.e. extremities or head) and use of iterative reconstruction technique. CTDIvol: 17.6 - 41.3 mGy. DLP: 948 mGy- cm.EXAMINATION:CT Head WOCLINICAL INDICATION: Female, 87 years old. 1. Trauma/Subdural HematomaTECHNIQUE: Axial CT of the head with multiplanar reformations. This exam was performed according to our departmental dose-optimization program which includes automated exposure control, adjustment of the mA and/or kV according to patient size and/or use of iterative reconstruction technique.COMPARISON: NoneCONTRAST: NoneFINDINGS:No acute intracranial hemorrhage midline shift mass effect or localized vasogenic edema. Ventricular system and cortical sulci and basilar cisterns appear unremarkable moctezuma-white differential negative with aspect score 10/10. Paranasal sinuses and mastoid air cells well aerated.IMPRESSION:1. No acute processElectronically signed by: Sam Quinonez MD 08/02/2023 03:41 PM EDT Workstation: [id number] by: on Aug 02 2023 3:41PTranscribed by: on Aug 02 2023 3:41PReviewed by: Date:02-Aug-2023 CT Facial Bones WOResult:Procedure: LCT - CT Facial Bones WOReason: fall, trauma Procedure Date: 08/02/2023 Accession Number: [id number] Dose: All CT scans at [facility] are performed using dose optimization techniques as appropriate to a performed exam including but not limited to the following: automated exposure control, adjustment of the mA and/or kV to patient size (this includes techniques or standardized protocols for targeted exams where dose is matched to indication/reason for exam; i.e. extremities or head) and use of iterative reconstruction technique. CTDIvol: 17.6 - 41.3 mGy. DLP: 948 mGy- cm.EXAMINATION:CT Facial Bones WOCLINICAL INDICATION: Female, 87 years old. Fall, traumaTECHNIQUE: Axial CT of the maxillofacial region with multiplanar reformations. Unless otherwise stated, incidental findings identified in this report do not require routine follow-up. This exam was performed according to our departmental dose- optimization program which includes automated exposure control, adjustment of the mA and/or kV according to patient size and/or use of iterative reconstruction technique.CONTRAST: None.COMPARISON: NoneFINDINGS:There is left frontal/periorbital hematoma.No acute fracture is identified. The zygomatic arches and pterygoid plates are intact.The mandible is intact. The mandibular condyles are normally seated within the glenoid fossae. 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 There is marked deviation of the nasal septum to the rightThe intra and extraconal structures of both orbits appear intact. There are postsurgical findings in the left orbit.IMPRESSION:1. Left frontal/periorbital hematoma.2. No evidence of acute facial bone fracture.Electronically signed by: Jim Robert MD 08/02/2023 03:47 PM EDT Workstation: [id number] by: Jim Robert MD on Aug 02 2023 3:47PTranscribed by: on Aug 02 2023 3:47PReviewed by: Date:02-Aug-2023 Immunizations Tdap Lot #:[id number], [employer] On:02-Aug-2023 Comments:Provider's Administ ration Notes:New Immunization Record Results GLUCOSE BLDC-SCNC Ordered On:20-Mar-2024 06:06 Glucose (BldC) [Moles/Vol]188mg/dL(High) Range:70mg/dL-100mg/dL CBC (HEMOGRAM) BLD AUTO Ordered On:13-Mar-2024 10:44 WBC Auto (Bld) [#/Vol]10.410*3/uL(Normal) Range:4.510*3/uL-1110*3/uL RBC Auto (Bld) [#/Vol]4.2710*6/uL(Normal) Range:410*6/uL-5.210*6/uL Hemoglobin (Bld) [Mass/Vol]13.7g/dL(Normal) Range:10.9g/dL-15.5g/dL Hematocrit Auto (Bld ) [Volume fraction]42.1%(Normal) Range:35%-47% MCV Auto (RBC) [Enti tic vol]98.6fL(Normal) Range:80fL-100fL MCH Auto (RBC) [Enti tic mass]32.1pg(High) Range:25pg-32pg MCHC Auto (RBC) [Mass/Vol]32.5g/dL(Normal) Range:31g/dL-37g/dL Erythrocyte distribu tion width Auto (RBC) [Entitic vol]44.1fL(Normal) Range:37fL-54fL Erythrocyte distribu tion width Auto (RBC) [Ratio]12.2%(Normal) Range:11%-16% Platelets Auto (Bld) [#/Vol]84726*3/uL(Normal) Range:71098*3/uL-55223*3/uL Platelet mean volume Auto (Bld) [Entitic vol]10.1fL(Normal) Range:8.2fL-12.2fL Nucleated RBC/100 WB C Auto (Bld) [Ratio]0{/100_WBCs}(Normal) Range:0{/100_WBCs}-1{/100_WBCs } CMP Ordered On:13-Mar-2024 11:11 Glucose [Mass/Vol]91mg/dL(Normal) Range:70mg/dL-100mg/dL Sodium [Moles/Vol]138mmol/L(Normal) Range:131mmol/L-145mmol/L Potassium [Moles/Vol]4.4mmol/L(Normal) Range:3.5mmol/L-5.1mmol/L Chloride [Moles/Vol]109mmol/L(Normal) Range:98mmol/L-110mmol/L CO2 [Moles/Vol]28mmol/L(Normal) Range:21mmol/L-32mmol/L Urea nitrogen [Mass/Vol]20mg/dL(Normal) Range:8mg/dL-23mg/dL Creatinine [Mass/Vol]0.77mg/dL(Normal) Range:0.55mg/dL-1.02mg/dL Calcium [Mass/Vol]9.2mg/dL(Normal) Range:8.3mg/dL-10.2mg/dL Bilirubin [Mass/Vol]0.3mg/dL(Normal) Range:0.2mg/dL-1.3mg/dL ALP [Catalytic activity/Vol]64U/L(Normal) Range:33U/L-149U/L AST [Catalytic activity/Vol]18U/L(Normal) Range:15U/L-37U/L ALT [Catalytic activity/Vol]21U/L(Normal) Range:13U/L-56U/L Protein [Mass/Vol]6.5g/dL(Normal) Range:6.4g/dL-8.3g/dL Albumin BCP dye [Mass/Vol]3.4g/dL(Normal) Range:3.2g/dL-4.8g/dL Globulin Calc (S) [Mass/Vol]3.1g/dL(Normal) Range:2g/dL-4.2g/dL Albumin/Globulin [Ma ss ratio]1.1(Normal) Range:1-2.2 Urea nitrogen/Creati nine [Mass ratio]26(High) Range:8-20 GFR74{mL/min/1.73m2}(Normal) Ran ge:59{mL/min/1.73m2}-0 Comments:Note: The calculated GFR value assumes an average adult body size with asurface area of 1.73 square meters. For unusually large or small patients, anadjustment should be made.CKD EPI Calculation used for GFR MAGNESIUM SERPL-MCNC Ordered On:13-Mar-2024 11:11 Magnesium [Mass/Vol]2.2mg/dL(Normal) Range:1.6mg/dL-2.5mg/dL PREALB SERPL-MCNC Ordered On:13-Mar-2024 15:57 Prealbumin [Mass/Vol]19.9mg/dL(Low) Range:20mg/dL-40mg/dL MRSA NOSE QL CULT Ordered On:13-Mar-2024 10:05 MRSA isol Org specif ic cx Ql (Nose)See Remarks for result details Comments:SPECIMEN DESCRIPTION : NOSECULTURE : No MRSA isolated after two days (Final Result).REPORT STATUS : 03/15/2024 FINAL MRSA NOSE QL CULT Ordered On:13-Mar-2024 10:05 MRSA isol Org specif ic cx Ql (Nose)See Remarks for result details Comments:SPECIMEN DESCRIPTION : NOSECULTURE : No Methicillin sensitive Staphylococcus aureus after two days.REPORT STATUS : 03/15/2024 FINAL Vital Signs 31-Mar-2024 14:43 Height in 3.563{inch} Range:36.0 0- 96.00 Weight kg stated 266594.74kg Weight lbs stated 8510073.2lb Height Cm 3.5160cm Range:91.00-2 44.00 Temperature Degrees F 3.598{degr ees_F} Range:88.00-108.00 Temperature Degrees C 3.536.6{de grees_C} Range:0.00- 43.00 3.5 Respiratory Rate (#VS I&O)16 {per_Minute} Range:0.00- 60.00 Pulse Oximetry(Num)96% 3.5 Heart Rate (Other)81{bpm} SBP 3.5 (No Calculation)145mm[Hg ] Range:0.00-999.00 DBP 3.5 (No Calculation)75mm[Hg] Range:0.00-250.00 20-Mar-2024 14:35 SBP 3.5 (No Calculation)129mm[Hg ] Range:0.00-999.00 DBP 3.5 (No Calculation)74mm[Hg] Range:0.00-250.00 Mean 3.5 DI93mm[Hg] Su Score10 20-Mar-2024 14:25 Temperature Degrees F 3.598.1{de grees_F} Range:88.00-108.00 Temperature Degrees C 3.536.7{de grees_C} Range:0.00- 43.00 20-Mar-2024 13:50 SBP 3.5 (No Calculation)152mm[Hg ] Range:0.00-999.00 DBP 3.5 (No Calculation)79mm[Hg] Range:0.00-250.00 Mean 3.5 JA272tj[Hg] Su Score10 20-Mar-2024 13:15 SCC Monitor Pulse79{bpm} SCC RR Zcueikiewnp47{per_Minute} SBP 3.5 (No Calculation)123mm[Hg ] Range:0.00-999.00 DBP 3.5 (No Calculation)69mm[Hg] Range:0.00-250.00 Mean 3.5 DI86mm[Hg] Pulse Oximetry(Num)98% 20-Mar-2024 13:00 SCC Monitor Pulse70{bpm} SCC RR Sipkoylcvaz98{per_Minute} SBP 3.5 (No Calculation)116mm[Hg ] Range:0.00-999.00 DBP 3.5 (No Calculation)72mm[Hg] Range:0.00-250.00 Mean 3.5 DI88mm[Hg] Pulse Oximetry(Num)98% 20-Mar-2024 12:35 SCC Monitor Pulse78{bpm} SCC RR Icdogwclung93{per_Minute} SBP 3.5 (No Calculation)124mm[Hg ] Range:0.00-999.00 DBP 3.5 (No Calculation)72mm[Hg] Range:0.00-250.00 Mean 3.5 DI93mm[Hg] Pulse Oximetry(Num)97% 20-Mar-2024 12:00 SCC Monitor Pulse71{bpm} SCC RR Kxbtbtreonu34{per_Minute} SBP 3.5 (No Calculation)123mm[Hg ] Range:0.00-999.00 DBP 3.5 (No Calculation)63mm[Hg] Range:0.00-250.00 Mean 3.5 DI86mm[Hg] Pulse Oximetry(Num)96% Su Score10 20-Mar-2024 11:45 SCC Monitor Pulse70{bpm} SCC RR Syzdzmljkrr92{per_Minute} SBP 3.5 (No Calculation)127mm[Hg ] Range:0.00-999.00 DBP 3.5 (No Calculation)70mm[Hg] Range:0.00-250.00 Mean 3.5 DI92mm[Hg] Pulse Oximetry(Num)96% 20-Mar-2024 11:30 SCC Monitor Pulse67{bpm} SCC RR Mwhrtfitgje17{per_Minute} SBP 3.5 (No Calculation)119mm[Hg ] Range:0.00-999.00 DBP 3.5 (No Calculation)68mm[Hg] Range:0.00-250.00 Mean 3.5 DI90mm[Hg] Pulse Oximetry(Num)96% Su Score10 20-Mar-2024 11:15 SCC Monitor Pulse65{bpm} SCC RR Gwqvlnwkiwz24{per_Minute} SBP 3.5 (No Calculation)119mm[Hg ] Range:0.00-999.00 DBP 3.5 (No Calculation)68mm[Hg] Range:0.00-250.00 Mean 3.5 DI90mm[Hg] Pulse Oximetry(Num)94% 20-Mar-2024 11:00 SCC Monitor Pulse65{bpm} SCC RR Buutkvnvywk87{per_Minute} SBP 3.5 (No Calculation)127mm[Hg ] Range:0.00-999.00 DBP 3.5 (No Calculation)71mm[Hg] Range:0.00-250.00 Mean 3.5 DI93mm[Hg] Pulse Oximetry(Num)97% 20-Mar-2024 10:45 SCC Monitor Pulse62{bpm} SCC RR Ffxpcjzpfdi26{per_Minute} SBP 3.5 (No Calculation)126mm[Hg ] Range:0.00-999.00 DBP 3.5 (No Calculation)72mm[Hg] Range:0.00-250.00 Mean 3.5 DI94mm[Hg] Pulse Oximetry(Num)97% 20-Mar-2024 10:30 SCC Monitor Pulse74{bpm} SCC RR Zqfapuwsxnt45{per_Minute} SBP 3.5 (No Calculation)125mm[Hg ] Range:0.00-999.00 DBP 3.5 (No Calculation)73mm[Hg] Range:0.00-250.00 Mean 3.5 DI95mm[Hg] Pulse Oximetry(Num)97% Su Score10 20-Mar-2024 10:15 SCC Monitor Pulse68{bpm} SCC RR Jrtkazgkabu74{per_Minute} SBP 3.5 (No Calculation)118mm[Hg ] Range:0.00-999.00 DBP 3.5 (No Calculation)66mm[Hg] Range:0.00-250.00 Mean 3.5 DI89mm[Hg] Pulse Oximetry(Num)96% 20-Mar-2024 10:00 SCC Monitor Pulse82{bpm} SCC RR Tugmfabdprc77{per_Minute} SBP 3.5 (No Calculation)110mm[Hg ] Range:0.00-999.00 DBP 3.5 (No Calculation)74mm[Hg] Range:0.00-250.00 Mean 3.5 DI87mm[Hg] Pulse Oximetry(Num)97% 20-Mar-2024 09:45 SCC Monitor Pulse79{bpm} SCC RR Anfjxsybsiu10{per_Minute} SBP 3.5 (No Calculation)102mm[Hg ] Range:0.00-999.00 DBP 3.5 (No Calculation)61mm[Hg] Range:0.00-250.00 Mean 3.5 DI77mm[Hg] Pulse Oximetry(Num)97% 20-Mar-2024 09:40 SCC Monitor Pulse85{bpm} SCC RR Hbmbpbmlkdu90{per_Minute} SBP 3.5 (No Calculation)107mm[Hg ] Range:0.00-999.00 DBP 3.5 (No Calculation)64mm[Hg] Range:0.00-250.00 Mean 3.5 DI80mm[Hg] Pulse Oximetry(Num)98% Su Score8 20-Mar-2024 09:35 SCC Monitor Pulse97{bpm} SCC RR Dhwhkjzhphq26{per_Minute} SBP 3.5 (No Calculation)115mm[Hg ] Range:0.00-999.00 DBP 3.5 (No Calculation)66mm[Hg] Range:0.00-250.00 Mean 3.5 DI84mm[Hg] Pulse Oximetry(Num)98% 20-Mar-2024 09:30 SCC Monitor Pulse93{bpm} SCC RR Swjrblybukg01{per_Minute} SBP 3.5 (No Calculation)109mm[Hg ] Range:0.00-999.00 DBP 3.5 (No Calculation)66mm[Hg] Range:0.00-250.00 Mean 3.5 DI82mm[Hg] Pulse Oximetry(Num)98% 20-Mar-2024 09:25 SCC Monitor Pulse92{bpm} SCC RR Egjxrdmpsyz02{per_Minute} SBP 3.5 (No Calculation)121mm[Hg ] Range:0.00-999.00 DBP 3.5 (No Calculation)72mm[Hg] Range:0.00-250.00 Mean 3.5 DI91mm[Hg] Pulse Oximetry(Num)98% 20-Mar-2024 09:20 Temperature Degrees F 3.598.3{de grees_F} Range:88.00-108.00 Temperature Degrees C 3.536.8{de grees_C} Range:0.00- 43.00 SCC Monitor Pulse92{bpm} SCC RR Vxlujxclzui52{per_Minute} SBP 3.5 (No Calculation)121mm[Hg ] Range:0.00-999.00 DBP 3.5 (No Calculation)72mm[Hg] Range:0.00-250.00 Mean 3.5 DI91mm[Hg] Pulse Oximetry(Num)99% Su Score7 20-Mar-2024 07:18 3.5 Heart Rate (Other)63{bpm} SBP 3.5 (No Calculation)135mm[Hg ] Range:0.00-999.00 DBP 3.5 (No Calculation)72mm[Hg] Range:0.00-250.00 Pulse Oximetry(Num)98% 20-Mar-2024 07:11 3.5 Heart Rate (Other)70{bpm} SBP 3.5 (No Calculation)151mm[Hg ] Range:0.00-999.00 DBP 3.5 (No Calculation)82mm[Hg] Range:0.00-250.00 Pulse Oximetry(Num)99% 20-Mar-2024 06:05 Temperature Degrees F 3.598.1{de grees_F} Range:88.00-108.00 Temperature Degrees C 3.536.7{de grees_C} Range:0.00- 43.00 SCC Monitor Pulse69{bpm} SBP 3.5 (No Calculation)163mm[Hg ] Range:0.00-999.00 DBP 3.5 (No Calculation)75mm[Hg] Range:0.00-250.00 Pulse Oximetry(Num)99% Height in 3.563{inch} Range:36.0 0- 96.00 Height Cm 3.5160cm Range:91.00-2 44.00 Weight lbs 3.5101.4lb Range:44.0 0-1320.00 Weight kg 3.545.994kg Range:0.00 -1000.00 3.5 BMI Kcfhmvqdhet32.96kg/m2 BSA WHIT cc1.4m2 3.5 Beny Scale Total Ynshbi00 Range:0.00- 25.00 Womack Fall Scale Variables MLM S cored0 Range:0.00-999.00 [id number] 13-Mar-2024 09:33 Temperature Degrees F 3.596.7{de grees_F} Range:88.00-108.00 Temperature Degrees C 3.535.9{de grees_C} Range:0.00- 43.00 3.5 Heart Rate (Other)70{bpm} 3.5 Respiratory Rate (#VS I&O)16 {per_Minute} Range:0.00- 60.00 SBP 3.5 (No Calculation)144mm[Hg ] Range:0.00-999.00 DBP 3.5 (No Calculation)81mm[Hg] Range:0.00-250.00 Pulse Oximetry(Num)97% 13-Mar-2024 09:14 HLIT Score Calc1 Height in 3.563{inch} Range:36.0 0- 96.00 Height Cm 3.5160cm Range:91.00-2 44.00 Weight kg 3.546kg Range:0.00-100 0.00 Weight lbs 3.5101.4lb Range:44.0 0-1320.00 3.5 BMI Jnfjzthtgyd15.96kg/m2 3.5 TB SCORE0 Range:0.00- 36.0 0 biuUrnfialayKtWdtm22739 Bleeding Score Value0 Range:0.00 - 99.00 Bone Score Value0 Range:0.00- 99 .00 Cancer Score Value0 Range:0.00- 99.00 Cardiac Score Value0 Range:0.00- 99.00 Renal Score Value0 Range:0.00- 9 9.00 Respiratory Score Value0 Range:0 .00- 99.00 DVT Score Value3 Range:0.00- 99. 00 02-Aug-2023 16:53 3.5 Heart Rate (Other)66{bpm} SBP 3.5 (No Calculation)156mm[Hg ] Range:0.00-999.00 DBP 3.5 (No Calculation)74mm[Hg] Range:0.00-250.00 Pulse Oximetry(Num)99% 02-Aug-2023 15:40 3.5 Beny Scale Total Fxuocw21 Range:0.00- 25.00 Womack Fall Scale Variables MLM S cored40 Range:0.00-999.00 02-Aug-2023 14:58 Weight kg stated 405110zj Weight lbs stated 478605.2lb 3.5 Heart Rate (Other)67{bpm} Pulse Oximetry(Num)98% 3.5 Respiratory Rate (#VS I&O)18 {per_Minute} Range:0.00- 60.00 SBP 3.5 (No Calculation)152mm[Hg ] Range:0.00-999.00 DBP 3.5 (No Calculation)96mm[Hg] Range:0.00-250.00 Mean 3.5115mm[Hg] Range:0.00-200 .00 Temperature Degrees F 3.597.6{de grees_F} Range:88.00-108.00 Temperature Degrees C 3.536.4{de grees_C} Range:0.00- 43.00 3.5 Neuro Tanisha Score15 3.5 TB SCORE0 Range:0.00- 36.0 0 02-Aug-2023 13:53 Height in 3.563{inch} Range:36.0 0- 96.00 Weight kg stated 351044.4kg Weight lbs stated 3568295.1lb Height Cm 3.5160cm Range:91.00-2 44.00 Temperature Degrees F 3.598.6{de grees_F} Range:88.00-108.00 Temperature Degrees C 3.537{degr ees_C} Range:0.00- 43.00 3.5 Respiratory Rate (#VS I&O)17 {per_Minute} Range:0.00- 60.00 Pulse Oximetry(Num)98% 3.5 Heart Rate (Other)92{bpm} SBP 3.5 (No Calculation)152mm[Hg ] Range:0.00-999.00 DBP 3.5 (No Calculation)111mm[Hg ] Range:0.00-250.00 Encounters Ambulatory Encounter Reason:PRESENCE LEFT ARTIFICIAL KNEE JOINT,PRESENCE LEFT ARTIFICIAL KNEE JOINT,PRESENCE LEFT ARTIFICIAL KNEE JOINT,PRESENCE LEFT ARTIFICIAL KNEE JOINT,PRESENCE LEFT ARTIFICIAL KNEE JOINT,PRESENCE LEFT ARTIFICIAL KNEE JOINT,PRESENCE LEFT ARTIFICIAL KNEE JOINT,PRESENCE LEFT ARTIFICIAL KNEE JOINT,PRESENCE LEFT ARTIFICIAL KNEE JOINT Encounter Diagnosis:Pain in left knee,Laceration without foreign body, left knee, initial encounter,Cellulitis of left lower limb,Aftercare following joint replacement surgery,Effusion, left knee,Presence of left artificial knee joint,Pain in left knee,Erythematous condition, unspecified,Other symptoms and signs involving the musculoskeletal system 31-Mar-2024 14:82Yw39-Zed-1345 23:59 Shaggy Vega (Attending) [facility]31-Mar-2024 Urgent Care Center Admission DocumentTravel History:Has traveled outside the [place] in the last 3 months? NoAllergies: Following Allergy Summary is current as of 03-31-2024 14:47See Allergies Summary for most current AllergiesNo Known AllergiesPreferred Pharmacy: [id number] Medications: Following Outpatient Medications current as of [id number] with a status of 'Patient Currently Takes Medications'See Outpatient Medication Review for most current Home Medication List 1. acetaminophen-oxycodone 325 mg-5 mg oral tablet 1 tab(s) orally every 4 hours As Needed - for pain 2. Biotin 3. Calcium 4. Cranberry 5. Ecotrin Adult Low Strength 81 mg oral delayed release tablet 1 tab(s) orally once a day 6. estradiol 0.5 mg oral tablet 0.5 tab(s) orally once a day 7. levothyroxine 25 mcg (0.025 mg) oral tablet 1 tab(s) orally once a day (in the morning) 8. lisinopril 2.5 mg oral tablet 1 tab(s) orally once a day 9. Vitamin B12 10. Vitamin CPatient identification has been verified and placed on patient:Primary Care Physician: SYDNEE PTSTATESPresented to Clinic for: LEFT KNEE WOUND Brief History: c/o a skin tear on the left knee that happened whenpatients nurse came to the house for wound care and PT after having the leftknee replaced on 03/20/2024 Onset: 3 - day(s) ago Timing: sudden Severity: moderate Level of Pain: 3Monkeypox Question: Patient complaint of a rash? NoHave you had a rash within the last 21 days AND,Had contact with a person with a similar appearing rash or who has recieved adiagnosis of confirmed or probable Monkeypox OR,Had close pmew-fi-ipak contact with groups who are at higher risk of Monkeypox?(Monkeypox Higher Risk groups include, those who have traveled to countrieswith a higher incidence of Monkeypox, men who have sex with men, those whospend time at large crowded events, bars, and parties, or those who live withmembers of these groups)Health Nursing Specialist/All Immunization EventsDiphtheria: Tdap Given: 06-98-0325Jfoemxzbz: Tdap Given: 01-73-3648Gckg: Tdap Given: 09-06-8372Zbujshr: Tdap Given: 08-02-2023 tDap Current: Current Last Tdap: [id number]-19 ScreeningHas the patient tested positive for COVID-19 in the past 90 days? NoMedical HistoryMedical History of:Cardiac/ Vascular and ThyroidCardiac/Vascular Problems:HypertensionSurgical HistoryHas Patient had surgery? YesSurgical History includes:Knee surgery (left kneebi-lat rotator cuff)Substance ScreenDoes the patient currently use a nicotine product? Never SmokedFamily History: denies family historySocial History: Do you have recent thought of harming yourself or others: No Do you feel safe at home: Yes Do you have any learning challenges due to: None - Patient Stated NoLearning Challenges Do you learn better by hearing/reading/doing something? Reading Marital Status: single How often do you have a drink containing alcohol: Never How many drinks per day: None Illicit drugs: no illicit drugsVital Signs: T 98 degrees F / 36.6 degrees C Oral Resp 16 RR 96 % Room Air Pulse 81 (Other) BP 145/75Height: 63 inch 160 cmWeight Method: StatedStated Weight: 47.74 kg 105.2 lbLast Mentrual Period: N/AAre you or could you be conceivably ? Not ApplicableEstablished Patient: YesElectronic Signatures:Jose Patel ([facility]) (Signed 03/31/2024 14:55) Authored: Admission, *Last Updated: 03/31/2024 14:55 by Jose Patel ([facility]) Same Day Surgery Encounter Reason:ABNORMAL ELECTROCARDIOGRAM,ABNORMAL ELECTROCARDIOGRAM,ABNORMAL ELECTROCARDIOGRAM,ABNORMAL ELECTROCARDIOGRAM,ABNORMAL ELECTROCARDIOGRAM,ABNORMAL ELECTROCARDIOGRAM,ABNORMAL ELECTROCARDIOGRAM,ABNORMAL ELECTROCARDIOGRAM,ABNORMAL ELECTROCARDIOGRAM Encounter Diagnosis:Unilateral primary osteoarthritis, left knee,Unilateral primary osteoarthritis, left knee,Rheumatoid arthritis, unspecified,Essential (primary) hypertension,Hypothyrodism, unspecified,Hormone replacement therapy (postmenopausal),Other mcc (current) drug therapy,Abnormal electrocardiogram [ECG] [EKG],Unilateral primary osteoarthritis, left knee 20-Mar-2024 05:[id number] 14:54 [facility] Discharge Disposition:Discharged/ transferred to home under care of organized home health service organization Dieudonne [id number] Rolling Walker delivered to patient at bedside for safe discharge to home.Adjusted equipment to correct patient height. Patient understanding safe use ofequipment. [place] [id number] Signatures:Dieudonne Albert (Patient Services Specialist) (Signed on 03/20/2024 14:56) AuthoredLast Updated: 03/20/2024 14:56 by Dieudonne Albert (Patient Services Specialist)
[2025-02-11] VITALS (9 sets, daily range): BP systolic 134–169; BP diastolic 65–77; PULSE 57–67; RESP 14–22; TEMP 36.2–36.6; O2SAT 88–97; BMI 17.7; BMI 18.2
--- NOTE | ~2025-02-11 | XR_ITS ---
EXAMINATION: XR CHEST CLINICAL INFORMATION: NG tube placement COMPARISON: None. Correlation made with CT abdomen and pelvis earlier same day. TECHNIQUE: AP view of the chest was obtained. FINDINGS: NG tube is present, with the sidehole at the GE junction, and the tip within the fundus of the stomach. For optimal placement this could be advanced a few CM. The cardiac, hilar, and mediastinal contours are normal. Mild aortic mural calcifications. The lungs are clear bilaterally. No pneumothorax or effusion. No focal osseous or soft tissue abnormality. Bilateral reverse shoulder arthroplasties in place. Degenerative changes throughout the spine with mild scoliosis. Contrast is present in the renal collecting systems from recent CT exam. XR/XR chest 1V IMPRESSION: 1. The NG tube sidehole is at the GE junction. For optimal placement this could be advanced a few CM. 2. The lungs are clear bilaterally. Electronically signed by: Leoncio Herrera MD 02/11/2025 11:26 AM [facility]
--- NOTE | ~2025-02-11 | XR_ITS ---
EXAMINATION: XR ABDOMEN 1 VIEW (KUB) HISTORY: f/u SBFT, SBO COMPARISON: Correlation is made with a CT of the abdomen and pelvis dated 02/11/2025. FINDINGS: Two supine views of the abdomen are submitted. A nasogastric tube is seen with its tip in the left upper quadrant. Again seen are numerous air-filled dilated small bowel loops, consistent with obstruction. A small amount of oral contrast is seen in pelvic small bowel loops. No contrast is seen in the colon. Excreted contrast is noted in the urinary bladder. No abnormal calcifications are identified. There are no abnormal soft tissue masses. There is degenerative disc disease of the spine. XR/XR KUB IMPRESSION: High-grade small bowel obstruction. No contrast is seen in the colon. Electronically signed by: Ritesh Swift MD 02/13/2025 08:09 AM [facility]
--- NOTE | ~2025-02-11 | CT_ITS ---
EXAMINATION: CT ABDOMEN PELVIS WITH IV CONTRAST HISTORY: distention, pain, hx of SBO COMPARISON: There are no prior studies for available comparison. TECHNIQUE: CT scan of the abdomen and pelvis was performed following administration of 85 mL Omnipaque 350 using standard departmental protocol. Coronal and sagittal reformatted images were generated and reviewed. Oral contrast material was not administered at the request of the referring physician. This CT exam was performed with one or more of the following dose reduction techniques: automated exposure control, adjustment of the mA and/or kV according to patient size, use of iterative reconstruction technique. DLP: 300 mGy-cm FINDINGS: LOWER CHEST: There is subsegmental atelectasis at the lung bases.. There is no pleural effusion. CARDIOVASCULATURE: The heart is normal in size. There is no pericardial effusion. LIVER: The liver is normal in size and contour. No liver mass is identified. The hepatic and portal veins are patent. GALLBLADDER / BILE DUCTS: The gallbladder is distended. No calcified stones are identified. There is no intra or extrahepatic biliary ductal dilatation. SPLEEN: The spleen is normal in size. No focal splenic lesion is identified. PANCREAS: The pancreas is unremarkable in appearance. ADRENAL GLANDS: Within normal limits. KIDNEYS/RETROPERITONEUM: No renal calculi are identified. There is no hydronephrosis. No renal masses are identified. LYMPH NODES: No abdominal or pelvic lymphadenopathy. VASCULATURE: The abdominal aorta demonstrates atherosclerotic calcification, but is normal in caliber. MESENTERY/PERITONEUM: There is a small amount of free fluid around the liver and in the dependent portion of the pelvis. No masses. There is no free intraperitoneal gas. STOMACH: The stomach is collapsed, limiting evaluation. SMALL BOWEL: There is a distal small bowel anastomosis. There is dilatation of proximal and mid small bowel loops which are distended with gas and fluid, consistent with obstruction. Distal small bowel loops are collapsed. There is a probable transition point in the midabdomen (series 8 image 48, series 5 image 34, and series 6 image 54). There is an abrupt change in caliber and tethering of small bowel loops. COLON: The colon is unremarkable. APPENDIX: The appendix is not seen, however no inflammatory changes are seen adjacent to the cecum. URINARY BLADDER/PELVIC ORGANS: The urinary bladder is collapsed, limiting evaluation. The patient is status post hysterectomy. BONES / SOFT TISSUES: There is severe degenerative disc disease of the spine. CT/CT abdomen pelvis w IV con IMPRESSION: High-grade distal small bowel obstruction. Probable transition point in the mid abdomen as described. Electronically signed by: Ritesh Swift MD 02/11/2025 09:38 AM [facility]
--- NOTE | ~2025-02-11 | FL_ITS ---
EXAMINATION: FL SMALL BOWEL SERIES CLINICAL INFORMATION: f/u SBO COMPARISON: No prior available. Correlation made with CT abdomen pelvis 02/11/2025. TECHNIQUE: Following a irrigator gravity flow image of the abdomen, contrast was administered via NG tube, and interval abdominal radiographs were performed to assess for contrast progression through the small bowel. FINDINGS: [employer] image of the abdomen demonstrates NG tube within the fundus of the stomach. Sidehole is supradiaphragmatic. There are dilated stacked loops of small bowel throughout the central abdomen in keeping with high-grade mechanical small bowel obstruction. No indirect evidence of free air. No abnormal colonic dilatation. Imaged lung bases appear clear. There are degenerative changes throughout the spine. After the administration of Gastrografin contrast material via NG tube, there is normal opacification of the stomach. Images at 60 minutes, 150 minutes, and 210 minutes show slow contrast opacification of the dilated small bowel loops in the central abdomen with associated dilution as contrast progressed more distally. There was no progression of contrast at 210 minutes beyond the suspected transition point in the right lower abdomen. There was no contrast progression into the right colon. FL/FL small bowel follow through IMPRESSION: 1. Small bowel series demonstrating high-grade mechanical small bowel obstruction which did not improve or resolve after administration of Gastrografin contrast material. No contrast was visualized in the right colon at 3 hours and 30 minutes, and there was persistence of stacked dilated loops of small bowel throughout the mid abdomen. 2. NG tube in satisfactory position. Electronically signed by: Leoncio Herrera MD 02/12/2025 02:22 PM [facility]
--- NOTE | 2025-02-11 07:33 | ED.ABDPAIN ---
HPI - Abdominal Pain General Chief Complaint: Abdominal Pain Stated Complaint: vomiting, severe abd pain, hx of int block, fever Time Seen by Provider: 02/11/25 07:38 Source: patient and family Mode of arrival: ambulatory Limitations: no limitations History of Present Illness ED Provider: GEE LOCO narrative: 89-year-old female with past medical history of hypertension hypothyroidism, as well as prior appendectomy/hysterectomy/laparotomy for bowel obstruction 15 years ago. Patient is from [place] and is visiting family. She recently traveled to [place] for a relative's , on Monday night she started to feel ill with abdominal cramps, nausea vomiting. She has not had a fever. Her last bowel movement was Monday and she believes that is the last time she passed flatus. She does note her abdomen is very painful and reminds her prior bowel obstruction. She has not been eating or drinking since Monday. She has no urinary symptoms. MD elicited complaint: abdominal pain Pertinent past history: other Onset (ago): day(s) (Monday) Pain Consistency: constant Location: diffuse Severity: severe Quality: aching and fullness Radiation: none Migration to: no migration Exacerbating factors: eating, vomiting and movement Relieving factors: nothing Context: history of similar episodes Associated symptoms: nausea, vomiting and constipation Related Data Home Medications ?Medication ?Instructions ?Recorded ?Confirmed estradiol 0.5 mg tablet 0.25 mg PO DAILY 02/11/25 02/11/25 levothyroxine 25 mcg tablet 25 mcg PO DAILY@0600 02/11/25 02/11/25 lisinopril 2.5 mg tablet 2.5 mg PO DAILY 02/11/25 02/11/25 Allergies Allergy/AdvReac Type Severity Reaction Status Date / Time codeine Allergy Headache Verified 02/11/25 07:36 Review of Systems Review of Systems Constitutional : No Weight loss, No Fever, No Chills ENT/Mouth : No sore throat, No Rhinorrhea Eyes: No Swelling, No Redness Cardiovascular : No Chest Pain, No SOB, NoEdema Respiratory : No Cough, No Sputum, No Wheezing Gastrointestinal : Positive Nausea, Positive Vomiting, no Diarrhea, positive abdominal Pain, No Hematochezia, No Melena Genitourinary : No Dysuria, No Urinary Frequency, No Hematuria, No Urgency Musculoskeletal : No joint pain, No Myalgias, No Joint Swelling Skin : No Skin Lesions, No rash Neuro : No Weakness, No Numbness, No Dizziness, No Headache All other systems reviewed and are negative. [facility] Past Medical History Attestation statement: The following information was validated with the patient. Source: old records reviewed Medical History (Updated 02/11/25 @ 09:51 by Nalini Benitez DO) Small bowel obstruction due to adhesions Hypothyroidism Hypertension Surgical History (Updated 02/11/25 @ 11:44 by Sabrina Grayson PA-C) H/O gastric bypass History of laparotomy H/O: hysterectomy History of appendectomy Social History Social History (Updated 02/11/25 @ 07:53 by Nalini Benitez DO) Patient Tobacco Use Status: Never used Tobacco Advance Directives: Yes Advance Directives Information Provided: Yes Advance Directives on File: No Do you have a plan to hurt others: No Plan Nutrition Risks: No Nutritional Risk Physical Exam ED Vital Signs: Vital Signs - 24 hr 02/11/25 07:32 02/11/25 08:10 02/11/25 08:38 Temperature 97.8 F 97.1 F Pulse Rate 67 64 Respiratory Rate 18 16 14 Blood Pressure 153/72 H 152/72 H Pulse Oximetry 94 95 Oxygen Delivery Method Room Air Room Air Oxygen Flow Rate 02/11/25 09:45 02/11/25 10:01 Temperature Pulse Rate 65 Respiratory Rate 16 Blood Pressure 134/65 Pulse Oximetry 88 L 96 Oxygen Delivery Method Room Air Nasal Cannula Oxygen Flow Rate 1 BMI result Body Mass Index 17.7 Appearance: Alert. Oriented X3. Mild acute distress. Eyes: Pupils equal, round and reactive to light. ENT: Pharynx dry mm Neck: Normal inspection. Neck supple. CVS: Normal heart rate and rhythm. Pulses normal. Respiratory: No respiratory distress. Breath sounds normal. Abdomen: Her abdomen is distended with hypoactive bowel sounds in all 4 quadrants, she is diffusely tender, she has no rebound she has a large midline laparotomy scar Skin: Skin warm and dry. pale skin color. Normal skin turgor. Extremities: No lower extremity edema. Neuro: Oriented X 3. No motor deficit. No sensory deficit. Course Course Course Narrative: This is an RME: Additional HPI, ROS, PE not included below will be deferred to primary provider. RME assessment and note performed by: Sophia Mohan PA-C This is a 29-[id number]-female, with a hx of HTN, thyroid disease who presents to the ER with complaints of low grade fevers, abdominal pain, nausea, and vomiting x 3 days. Was away at a on in [place], and felt very ill with abdominal pain, nausea and vomiting. Reports that she vomited all night, reports that she stopped drinking fluids, therefore the vomiting stopped. Hx of PIOTR requiring surgery, no flatulence. No CP or SOB Plan: Labs, KUB, further ER eval needed Reevaluation(s) Reevaluation #1: Nalini Benitez, DO 02/11/25 0937 I sent a message to General surgery given the high-grade distal small-bowel obstruction, she is not vomiting, stomach is collapsed, I am only NG tube at this time Her pain is well controlled right now and she feels much better Per surgery place NG tube Aware of NG tube placement prior to the read we did advance approximately 3 cm Medical Decision Making Medical Decision Making MDM Narrative: 89-year-old female with past medical history of hypertension, hypothyroidism, prior appendectomy/hysterectomy/prior laparotomy for SBO 15 years ago, she presents now with distention, nausea, vomiting, abdominal pain and concern for recurrent bowel obstruction. She has had no flatus or bowel movement since Monday. At this time I have ordered labs, EKG, CT scan to evaluate for SBO, I am starting her on IV fluids, IV Tylenol, IV morphine for pain. I did discuss the potential for NG tube insertion depending on recurrent vomiting, CT scan findings Differential Diagnosis Differential Diagnoses: The differential diagnosis associated with the presentation includes Small-bowel obstruction, mass, diverticular pathology, viral syndrome, dehydration, anemia Admission/Observation Consideration of admission/observation: Escalation of care including admission/observation considered Will need admission for evaluation and treatment of bowel obstruction Consult Healthcare Provider Management of the patient was discussed with: Curbing Stonecutter (General surgery) Lab Data MDM Lab Attestation statement: I reviewed the patient's lab results. 02/11/25 07:54 02/11/25 08:50 Labs: Lab Results 02/11/25 02/11/25 Range/Units 07:54 08:50 WBC 10.4 (4.8-10.8) X10*3/uL RBC 4.88 (4.20-5.50) X10*6/uL Hgb 15.0 (12.0-16.0) g/dl Hct 45.2 (37.0-47.0) % MCV 92.6 (80.0-98.0) fL MCH 30.7 (27.0-33.0) pg MCHC 33.2 (31.0-35.0) g/dl RDW 13.0 (11.0-16.0) % Plt Count 253 (160-400) X10*3/uL MPV 10.2 (9.4-12.3) fL Immature Gran % (Auto) 0.6 H (0.0-0.4) % Neut % (Auto) 72.6 (45-73) % Lymph % (Auto) 16.4 L (20-40) % [place] % (Auto) 10.2 (2-11) % Eos % (Auto) 0.0 (0-4) % Baso % (Auto) 0.2 (0-2) % Lymph # (Auto) 1.7 (1.2-4.9) X10*3/uL [place] # (Auto) 1.1 (0.1-1.2) X10*3/uL Eos # (Auto) 0.0 (0.0-0.4) X10*3/uL Baso # (Auto) 0.0 (0.0-0.2) X10*3/uL Abs Immat Gran (auto) 0.06 H (0.00-0.03) X10*3/uL Absolute Neuts (auto) 7.6 (2.0-8.3) x10*3/uL Absolute Nucleated RBC 0.000 (0.0-0.012) X10*3/uL Nucleated RBC % (auto) 0.0 (0.0-0.2) /100WBC Sodium 142 (135-145) mmol/L Potassium 4.4 (3.3-5.1) mmol/L Chloride 105 (96-108) mmol/L Carbon Dioxide 29 (22-29) mmol/L Anion Gap 12 (12-20) BUN 33 H (9-16) mg/dL Creatinine 1.00 (0.5-1.4) mg/dL Estim Creat Clear Calc 27.3 Estimated GFR 52 Random Glucose 112 (60-115) mg/dL Calcium 8.3 L (8.4-10.2) mg/dL Magnesium 1.9 (1.6-2.6) mg/dL Total Bilirubin 0.8 (0.0-1.0) mg/dL Direct Bilirubin 0.4 (0.0-0.5) mg/dL AST 67 H (5-31) U/L ALT 31 (0-31) U/L Alkaline Phosphatase 61 (39-117) U/L Troponin I High Sens 14.3 (<3.5-17.0) ng/L Total Protein 5.5 L (6.5-8.0) g/dL Albumin 3.6 (3.5-5.0) g/dL Lipase 14 (8-78) U/L Blood Type B Positive Antibody Screen NEGATIVE Independent Interpretation I performed an independent interpretation of an: EKG and CT Scan (High-grade distal small bowel obstruction) Interpretation: Rate: 66 Rhythm: Normal sinus rhythm [place]: Left Normal P waves. Normal NELSY. Normal QRS complex. ST T wave : There is some artifact in the tracing she has no ST-elevation, there is a T-wave inversion in lead III and V1 qTC: 444 prior studies: No prior but this study has no acute ischemia The study has been interpreted contemporaneously by me. . Radiology Impression Discussion of test interpretation with radiology: I have reviewed the radiologist's reading. Independent Historian Clinical information obtained from an independent historian. History obtained from or confirmed by: Other Medications Administered Generic Name Dose Route Start Last Admin Trade Name Freq PRN Reason Stop Dose Admin Lactated Ringer's 1,000 mls @ 80 mls/hr 02/11/25 10:00 02/11/25 10:41 Lr IVCONT 80 mls/hr .[id number] LIZZ Administration Discontinued Medications Generic Name Dose Route Start Last Admin Trade Name Freq PRN Reason Stop Dose Admin Lactated Ringer's 1,000 mls @ 999 mls/hr 02/11/25 07:41 02/11/25 09:05 Lr IV 02/11/25 08:41 Infused .Q1H1M ONE Infusion Acetaminophen 1,000 mg in 100 mls @ 400 mls/hr 02/11/25 07:41 02/11/25 08:35 Ofirmev IV 02/11/25 07:55 Infused ONCE ONE Infusion Iohexol 85 ml 02/11/25 09:20 02/11/25 09:20 Iohexol 350 Mg/Ml 100 Ml Infus..Btl IV 02/11/25 09:21 85 ml ONCE ONE Administration Lidocaine HCl 1 appl 02/11/25 10:08 02/11/25 10:41 Lidocaine Hcl 4 % Mpf W/Madgic 5 Ml Ampul TOPICAL 02/11/25 10:09 1 appl ONCE ONE Administration Protocol Morphine Sulfate 2 mg 02/11/25 07:41 02/11/25 08:10 Morphine Sulfate 4 Mg/Ml Cartridge IVPUSH 02/11/25 07:42 2 mg ONCE ONE Administration Protocol Ondansetron HCl 4 mg 02/11/25 07:41 02/11/25 08:09 Ondansetron Hcl 4 Mg/2 Ml Vial IVPUSH 02/11/25 07:42 4 mg ONCE ONE Administration Critical Care Time Critical Care Time Critical Care Time: Yes Total Critical Care Time: 35 Attestation: Time is exclusive of separately billable procedures. Time includes: direct patient care, patient reassessment, coordination of patient care, interpretation of data (laboratory data, pulse oximetry, CT scan), review of patient's medical records, medical consultation and documentation of patient care. IV morphine with improvement in pain. Procedures excluded from critical care time: electrocardiography. I attest to this time spent taking care of the patient Discharge Plan Discharge Clinical Impression: Small bowel obstruction Abdominal pain Qualifiers: Abdominal location: generalized Qualified Code(s): R10.84 - Generalized abdominal pain Patient Disposition: Admitted As Inpatient
--- NOTE | 2025-02-11 07:38 | ECG_ITS ---
Test Reason : epigastric pain Blood Pressure : */* mmHG Vent. Rate : 66 BPM Atrial Rate : 214 BPM P-R Int : * ms QRS Dur : 70 ms QT Int : 424 ms P-R-T Axes : 62 -52 -3 degrees QTcB Int : 444 ms Normal sinus rhythm Low voltage QRS Left anterior fascicular block Nonspecific ST abnormality Abnormal ECG No previous ECGs available Referred By: Sophia Mohan Electronically Signed By: Steven Angel
[2025-02-11] MEDS: Lactated Ringers 1,000 ML 999 ML IV (08:00)
[2025-02-11 08:05] LABS: MANUAL DIFF FLAG NO
[2025-02-11 08:06] LABS: Hematocrit 45.2 % (37.0-47.0); Hemoglobin 15.0 g/dl (12.0-16.0); Imm Gran Abs Auto 0.06 X10*3/uL (0.00-0.03); Imm Gran Pct Auto 0.6 % (0.0-0.4); Lymphocytes Absolute Auto 1.7 X10*3/uL (1.2-4.9); Mean Corpuscular HGB Conc 33.2 g/dl (31.0-35.0); Mean Corpuscular Hemoglobin 30.7 pg (27.0-33.0); Mean Corpuscular Volume 92.6 fL (80.0-98.0); NRBC Abs Auto 0.000 X10*3/uL (0.0-0.012); NRBC Pct Auto 0.0 /100WBC (0.0-0.2); Platelet Count 253 X10*3/uL (160-400); Red Blood Count 4.88 X10*6/uL (4.20-5.50); White Blood Count 10.4 X10*3/uL (4.8-10.8)
[2025-02-11 09:09] LABS: Alanine Aminotransferase 31 U/L (0-31); Albumin Level 3.6 g/dL (3.5-5.0); Alkaline Phosphatase 61 U/L (39-117); Anion Gap 12 (12-20); Aspartate Amino Transferase 67 U/L (5-31); Blood Urea Nitrogen 33 mg/dL (9-16); Calcium 8.3 mg/dL (8.4-10.2); Carbon Dioxide 29 mmol/L (22-29); Chloride 105 mmol/L (96-108); Creatinine Clr Calc Pharmacy 27.3; Estimated Glomerular Filt Rate 52; Lipase 14 U/L (8-78); Magnesium 1.9 mg/dL (1.6-2.6); Potassium 4.4 mmol/L (3.3-5.1); Sodium 142 mmol/L (135-145); Total Protein 5.5 g/dL (6.5-8.0)
[2025-02-11 09:16] LABS: Troponin-I High Sensitivity 14.3 ng/L (<3.5-17.0)
[2025-02-11] MEDS: iohexoL 350 MG/ML 100 ML INFUS..BTL 85 ML IV (09:20)
[2025-02-11] MEDS: Lidocaine HCl 4 % MPF w/MADgic 5 ML AMPUL 1 APPL TOPICAL (10:41)
[2025-02-11] MEDS: Lactated Ringers 1,000 ML 80 ML IVCONT ×2 (10:41→20:33)
--- NOTE | 2025-02-11 11:24 | PHA.MEDREC ---
Addendum entered by Meghan Gutierrez RPh 02/11/25 11:28: reviewed Original Note: Pharmacy Consult ? Medication Reconciliation Pharmacy has completed the medication reconciliation. Spoke with pt and pt daughter at bedside and pt was able to confirm her medications. Pt has not been able to take any medications since Monday.
--- NOTE | 2025-02-11 11:36 | PM.HPGS ---
History of Present Illness History of Present Illness Date of Service: 02/11/25 <Sabrina Grayson PA-C - Last Filed: 02/11/25 12:00> 02/14/25 <Ze Uriostegui MD - Last Filed: 02/14/25 15:32> Chief complaint: SBO <Sabrina Grayson PA-C - Last Filed: 02/11/25 12:00> Narrative: Aziza Freeman is a 89 year old female with PMH of hypertension, hypothyroidism who presented to the ED with complaints of abdominal pain and vomiting. She reports she was attending a [facility] in [place] with her daughter over the weekend and she developed severe diffuse abdominal pain associated with nausea and vomiting on Monday. She was unable to make her flight home to [place] that day and came back to her daughters home with her. She had continued nausea and vomiting and abd pain into Monday. She has a surgical history significant for a gastric bypass (15yrs ago), hysterectomy, hx of SBO requiring laparotomy and enterolysis. Her family urged her to be evaluated in the ED. Work up in the ED included CBC, BMP, LFTs which was significant for an elevated BUN. CT scan abd pelvis was obtained which showed dilatation of proximal and mid small bowel loops with distal small bowel loops are collapsed, probable transition point in the midabdomen where there is an abrupt change in caliber and tethering of small bowel loops. She has air distally in the colon on my review. She reports feeling improved with no abdominal pain. She did just receive analgesics. She has not passed flatus at all and her last BM was Monday which is abnormal for her. Last emesis was Monday morning. <Sabrina Grayson PA-C - Last Filed: 02/11/25 12:00> Review of Systems Constitutional: Constitutional: Denies chills and Denies fever(s) <Sabrina Grayson PA-C - Last Filed: 02/11/25 12:00> Cardiovascular: Cardiovascular: Denies chest pain and Denies dyspnea <FERNIE Rodriguez Last Filed: 02/11/25 12:00> Respiratory: Respiratory: Denies dyspnea <Sabrina Grayson PA-C - Last Filed: 02/11/25 12:00> Gastrointestinal: Gastrointestinal: Reports as per HPI <Sabrina Grayson PA-C - Last Filed: 02/11/25 12:00> Integumentary/Breasts: Skin/Breast: Denies rash and Denies jaundice <FERNIE Rodriguez Last Filed: 02/11/25 12:00> [facility] Past Medical History Medical History: Medical History Small bowel obstruction due to adhesions Hypothyroidism Hypertension <FERNIE Rodriguez Last Filed: 02/11/25 12:00> Surgical History Surgical History: Surgical History Hx of rotator cuff surgery 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 History of laparotomy H/O: hysterectomy History of appendectomy <FERNIE Rodriguez Last Filed: 02/11/25 12:00> Social History Social History: Social History (Updated 02/11/25 @ 07:53 by Nalini Benitez DO) Household Members: None Housing: House Do you presently have visiting nurse or other home services: No Patient Tobacco Use Status: Never used Tobacco Advance Directives Date on File: 02/11/25 service: No <Sabrina Grayson PA-C - Last Filed: 02/11/25 12:00> Meds Allergies/Adverse reactions: Allergies Allergy/AdvReac Type Severity Reaction Status Date / Time codeine Allergy Headache Verified 02/11/25 07:36 <FERNIE Rodriguez Last Filed: 02/11/25 12:00> Active Medications: Current Medications Lactated Ringer's (Lr) 1,000 mls @ 80 mls/hr IVCONT .[id number] [facility] Last Admin: 02/11/25 10:41 Dose: 80 mls/hr <FERNIE Rodriguez Last Filed: 02/11/25 12:00> Home medications: Home Medications ?Medication ?Instructions ?Recorded ?Confirmed ?Last Taken ?Type estradiol 0.5 mg tablet 0.25 mg PO DAILY 02/11/25 02/11/25 02/08/25 History levothyroxine 25 mcg tablet 25 mcg PO DAILY@0600 02/11/25 02/11/25 02/08/25 History lisinopril 2.5 mg tablet 2.5 mg PO DAILY 02/11/25 02/11/25 02/08/25 History <FERNIE Rodriguez Last Filed: 02/11/25 12:00> Physical Exam Vital Signs: Vital Signs: Last Vital Signs Temp 97.1 F 02/11/25 08:38 Pulse 65 02/11/25 10:01 Resp 16 02/11/25 10:01 BP 134/65 02/11/25 10:01 Pulse Ox 96 02/11/25 10:01 O2 Del Method Nasal Cannula 02/11/25 10:01 O2 Flow Rate 1 02/11/25 10:01 BMI result Body Mass Index 17.7 <Sabrina Grayson PA-C Last Filed: 02/11/25 12:00> Const: General: comfortable, no acute distress and alert <Sabrina Grayson PA-C Last Filed: 02/11/25 12:00> Orientation/consciousness: patient oriented x3 <Sabrina Grayson PA-C Last Filed: 02/11/25 12:00> Resp: Effort & Inspection: normal respiratory effort, able to speak in complete sentences and not tachypneic <Sabrina Grayson PA-C Last Filed: 02/11/25 12:00> Cardio: Rate: regular rate <Sabrina Grayson PA-C Last Filed: 02/11/25 12:00> GI: Other: distended and tympanitic but soft mild diffuse tenderness, more increased mid/lower abdomen <Sabrina Grayson PA-C Last Filed: 02/11/25 12:00> Inspection: Yes scar (midline supra and infraumbilical well healed scar ) <Sabrina Grayson PA-C Last Filed: 02/11/25 12:00> Palpation (GI): no guarding <FERNIE Rodriguez Last Filed: 02/11/25 12:00> Skin: General skin exam: no rashes or lesions noted <Sabrina Grayson PA-C Last Filed: 02/11/25 12:00> Neuro: General: patient oriented x3 and moves all extremities <Sabrina Grayson PA-C - Last Filed: 02/11/25 12:00> Results Results Labs: Short CBC 02/11/25 Range/Units 07:54 WBC 10.4 (4.8-10.8) X10*3/uL Hgb 15.0 (12.0-16.0) g/dl Hct 45.2 (37.0-47.0) % Plt Count 253 (160-400) X10*3/uL BMP 02/11/25 08:50 Sodium 142 Potassium 4.4 Chloride 105 Carbon Dioxide 29 BUN 33 H Creatinine 1.00 Calcium 8.3 L Liver Function 02/11/25 Range/Units 08:50 Total Bilirubin 0.8 (0.0-1.0) mg/dL Direct Bilirubin 0.4 (0.0-0.5) mg/dL AST 67 H (5-31) U/L ALT 31 (0-31) U/L Alkaline Phosphatase 61 (39-117) U/L Albumin 3.6 (3.5-5.0) g/dL <Sabrina Grayson PA-C - Last Filed: 02/11/25 12:00> Abdomen CT scan report/results: report reviewed and image reviewed <Sabrina Grayson PA-C - Last Filed: 02/11/25 12:00> Additional studies: labs reviewed <Sabrina Grayson PA-C - Last Filed: 02/11/25 12:00> Assessment and Plan (1) Small bowel obstruction: Status: Acute <Sabrina Grayson PA-C - Last Filed: 02/11/25 12:00> [age] year old female with abdominal pain, and vomiting for 2 days now next She does have a history of laparotomy with small-bowel resection and hysterectomy She currently feels much better Abdomen is soft and benign and nontender NG tube in place Cat scan reviewed - note of markedly dilated small bowel loops with possible transition point distally consistent with partial small-bowel obstruction likely from adhesions IV fluid Serial abdominal exam Clinically looks well Consider small bowel series if with non improvement within a reasonable period of time Seen and examined independently <Ze Uriostegui MD - Last Filed: 02/14/25 15:32> 89 year old female with PMH of hypertension, hypothyroidism with multiple previous abdominal surgeries who presented with complaints of abdominal pain and vomiting since Monday with dilated small bowel loops with probable transition point in the midabdomen consistent with SBO. She was admitted to the surgical service. She has good air distally in the colon. She is clinically appearing well and her abdomen is distended but soft and overall benign. Continuing nonoperative measures was recommended and given the degree of small bowel dilatation, NGT decompression was recommended. Cont IVF hydration, likely has LINA given elevated BUN. If no improvement tomorrow, will obtain SBFT to further assess/hopefully open up the SBO. We also discussed possible surgical intervention with laparotomy if she does not improve in a reasonable amount of time or worsens. Discussed with patient and daughter at bedside who are comfortable with plan. Hospitalist consult for management of medical comorbidities. <Sabrina Grayson PA-C - Last Filed: 02/11/25 12:00> Quality Stroke Does the patient have a stroke diagnosis?: No <Sabrina Grayson PA-C - Last Filed: 02/11/25 12:00> VTE Prior VTE?: No <Sabrina Grayson PA-C - Last Filed: 02/11/25 12:00> VTE Risk Level:: Surgical - moderate <Sabrina Grayson PA-C - Last Filed: 02/11/25 12:00> VTE Device Contraindication: N/A - Device Ordered <Sabrina Grayson PA-C - Last Filed: 02/11/25 12:00> VTE Drug Contraindication: N/A - Med Ordered <Sabrina Grayson PA-C - Last Filed: 02/11/25 12:00> Procedures Date of Service Date of Service: 02/11/25 <Sabrina Grayson PA-C - Last Filed: 02/11/25 12:00> 02/14/25 <Ze Uriostegui MD - Last Filed: 02/14/25 15:32>
--- NOTE | 2025-02-11 11:51 | PC.NURSE ---
Pt tolerated placement of NG tube well, chest xray obtained, and ED provider at bedside to review for surgery prior to hooking up to intermit low suction per verbal orders from surgery team. Pt has had relieve from pain since morning dose of pain medications, no nausea or vomiting reported at this time. Bilat #20 IV placed, pt medicated per JUN at this time. Awaiting admit and bed assignment at this time Call singer within reach
--- NOTE | 2025-02-11 13:12 | P.CONHOSP_ITS ---
History of Present Illness Data of Consult Service Date: 02/11/25 Primary Care Provider: Nonstaff Physician HPI 89-year-old woman with a history of hypertension, hypothyroidism, history of small-bowel obstruction with laparotomy 15 years ago. Patient recently traveled to [place] for a and is traveling from [place]. She started to feel ill over the weekend with abdominal cramping, nausea and vomiting. Had fever, chills. She reported having her last bowel movement on Monday which was also the last time she passed flatus. She reports increased pain to her abdomen. Abdominal CT showing high-grade bowel obstruction. NG tube was placed and patient was admitted by general surgery. Review of Systems 2 Review of Systems: Denies any recent fever chills or decrease in appetite respiratory denies any shortness of breath or cough cardiovascular denied chest pain gastrointestinal denies any dysphagia abdominal pain nausea vomiting or diarrhea genitourinary denies any dysuria frequency or hematuria musculoskeletal denies any joint pain or swelling neuropsych denies any weakness or seizures all other systems reviewed are negative [facility] Medical History (Updated 02/11/25 @ 09:51 by Nalini Benitez DO) Small bowel obstruction due to adhesions Hypothyroidism Hypertension Surgical History (Updated 02/11/25 @ 11:44 by Sabrina Grayson PA-C) H/O gastric bypass History of laparotomy H/O: hysterectomy History of appendectomy Social History (Updated 02/11/25 @ 07:53 by Nalini Benitez DO) Patient Tobacco Use Status: Never used Tobacco Advance Directives: Yes Advance Directives Information Provided: Yes Advance Directives on File: No Do you have a plan to hurt others: No Plan Nutrition Risks: No Nutritional Risk Meds Allergies Allergy/AdvReac Type Severity Reaction Status Date / Time codeine Allergy Headache Verified 02/11/25 07:36 Active Medications: Current Medications Heparin Sodium (Porcine) (Heparin Sodium,Porcine 5,000 Unit/Ml Vial) 5,000 unit SUBCUT Q12H [facility] Lactated Ringer's (Lr) 1,000 mls @ 80 mls/hr IVCONT .[id number] [facility] Last Admin: 02/11/25 10:41 Dose: 80 mls/hr Acetaminophen (Ofirmev) 1,000 mg in 100 mls @ 400 mls/hr IV Q6H PRN PRN Reason: Pain, Mild 1-3,fever,headache Morphine Sulfate (Morphine Sulfate 4 Mg/Ml Cartridge) 2 mg IVPUSH Q3H PRN; Protocol PRN Reason: Pain, Severe (Pain Scale 7-10) Ondansetron HCl (Ondansetron Hcl 4 Mg/2 Ml Vial) 4 mg IVPUSH Q8H PRN PRN Reason: Nausea and Vomiting Sodium Chloride (0.9 % Sodium Chloride Flush 3 Ml Syringe) 3 ml IVFLUSH QSHIFT [facility] Home Medications ?Medication ?Instructions ?Recorded ?Confirmed ?Last Taken ?Type estradiol 0.5 mg tablet 0.25 mg PO DAILY 02/11/2502/08/25 History levothyroxine 25 mcg tablet 25 mcg PO DAILY@0600 02/1102/11/25 02/08/25 History lisinopril 2.5 mg tablet 2.5 mg PO DAILY 02/11/2508/0202/08/25 History Physical Exam 2 Vital Signs and Narrative: Vital Signs: Last Vital Signs Temp 97.1 F 02/11/25 08:38 Pulse 65 02/11/25 10:01 Resp 16 02/11/25 10:01 BP 134/65 02/11/25 10:01 Pulse Ox 96 02/11/25 10:01 O2 Del Method Nasal Cannula 02/11/25 10:01 O2 Flow Rate 1 02/11/25 10:01 BMI result Body Mass Index 17.7 Appearing in no acute distress head is normocephalic atraumatic eyes pupils are PERRLA sclera is anicteric mouth throat mucous membranes are intact and moist neck is supple no lymphadenopathy, no JVD noted lung sounds are clear to auscultation heart regular rate rhythm, clear S1, S2 positive bowel sounds, abdomen is soft, nontender neuro patient is alert x3, no focal deficits Results Labs 02/11/25 07:54 02/11/25 08:50 Labs: Laboratory Results - last 24 hr 02/11/25 02/11/25 07:54 08:50 MCV 92.6 MCH 30.7 MCHC 33.2 RDW 13.0 Plt Count 253 MPV 10.2 Immature Gran % (Auto) 0.6 H Neut % (Auto) 72.6 Lymph % (Auto) 16.4 L [place] % (Auto) 10.2 Eos % (Auto) 0.0 Baso % (Auto) 0.2 Lymph # (Auto) 1.7 [place] # (Auto) 1.1 Eos # (Auto) 0.0 Baso # (Auto) 0.0 Abs Immat Gran (auto) 0.06 H Absolute Neuts (auto) 7.6 Absolute Nucleated RBC 0.000 Nucleated RBC % (auto) 0.0 Anion Gap 12 Estim Creat Clear Calc 27.3 Estimated GFR 52 Random Glucose 112 Calcium 8.3 L Magnesium 1.9 Total Bilirubin 0.8 Direct Bilirubin 0.4 AST 67 H ALT 31 Alkaline Phosphatase 61 Troponin I High Sens 14.3 Total Protein 5.5 L Albumin 3.6 Lipase 14 Blood Type B Positive Antibody Screen NEGATIVE Imaging Radiologist's Impressions: Impressions Abdomen/Pelvis CT 02/11/25 09:16 IMPRESSION: High-grade distal small bowel obstruction. Probable transition point in the mid abdomen as described. Electronically signed by: Ritesh Swift MD 02/11/2025 09:38 AM EST RP Chest X-Ray 02/11/25 11:05 IMPRESSION: 1. The NG tube sidehole is at the GE junction. For optimal placement this could be advanced a few CM. 2. The lungs are clear bilaterally. Electronically signed by: Leoncio Herrera MD 02/11/2025 11:26 AM EST RP Assessment and Plan (1) Small bowel obstruction: Status: Acute (2) Abdominal pain: Qualifiers: Abdominal location: generalized Qualified Code(s): R10.84 - Generalized abdominal pain Status: Acute Plan 89 year old women admitted by general surgery for Small bowel obstruction Small bowel obstruction Abdominal CT showing high-grade distal small-bowel obstruction Management as per surgical team NGT placed, may have po meds as per general surgery Hypothyroidism levothyroxine Hypertension lisinopril DVT prophylaxis with heparin as per general surgery Full code We will continue to follow.
--- NOTE | 2025-02-11 15:01 | PM.EVENT ---
Event Note Date of Service: 02/11/25 Event Note: Seen on afternoon rounds Says she feels well Denies abdominal pain Stable vital signs although blood pressure seems to be running high currently with systolic in the 160s Abdomen is soft and benign NG tube output minimal Continue current care Possible small bowel series depending on clinical course Okay to have p.o. med Time Spent With Patient Time: Total time managing care of this patient today ____ minutes.
[2025-02-11 15:33] LABS: Appearance Urine Clear; Glucose Urine UA Negative (Negative); PH 6.0 (5.0-9.0); Specific Gravity - Urine >= 1.030 (1.005-1.025); UMIC TRIGGER UACC YES
[2025-02-11 15:51] LABS: UACC Culture Trigger YES
[2025-02-11] MEDS: 0.9 % Sodium Chloride Flush 3 ML SYRINGE IVFLUSH (16:48)
--- NOTE | 2025-02-11 18:01 | PC.NURSE ---
per provider OG suction to be paused for 1 hour after being given PO medications
--- NOTE | 2025-02-11 19:17 | MHC.EDTECH ---
Pt called due to NG tube coming undone from suction hose and tube leaking on bed. Pt assisted to chair, cleaned up and bedding change done. Pt back in bed, call singer within reach.
--- NOTE | 2025-02-11 19:30 | HO.NURTONUR ---
89 yr female from [place] here visiting w/family and not feeling well for past few days. c/o abd pain, n/v - history of SBO years ago with surgical repair. CT today - High-grade distal small bowel obstruction. Probable transition point in the mid abdomen as described. Has NG to low interm suction. emesis noted in tubing but not in canister at this time. PT is alert and oriented and able to walk to restroom. 2 IV's both 20's R forearm and L AC. Had some htn earlier but had been unable to keep meds down past couple days so was given lisinopril PO prior shift. can take meds w/sip of h20 just clamp tube for 1 hour and ok for ice chips. NG is 14 located in right nare. had iv tylenol earlier but would like to take the prn morphine at bedtime tonight. last bp 161/73. rates pain 3/10 at present
[2025-02-12 03:16] VITALS: BP 129/68; PULSE 51; RESP 14; TEMP 36.2; O2SAT 93
[2025-02-12 06:19] LABS: MANUAL DIFF FLAG NO
[2025-02-12 06:21] LABS: Hematocrit 39.7 % (37.0-47.0); Hemoglobin 12.9 g/dl (12.0-16.0); Imm Gran Abs Auto 0.04 X10*3/uL (0.00-0.03); Imm Gran Pct Auto 0.4 % (0.0-0.4); Lymphocytes Absolute Auto 2.7 X10*3/uL (1.2-4.9); Mean Corpuscular HGB Conc 32.5 g/dl (31.0-35.0); Mean Corpuscular Hemoglobin 30.9 pg (27.0-33.0); Mean Corpuscular Volume 95.0 fL (80.0-98.0); NRBC Abs Auto 0.000 X10*3/uL (0.0-0.012); NRBC Pct Auto 0.0 /100WBC (0.0-0.2); Platelet Count 212 X10*3/uL (160-400); Red Blood Count 4.18 X10*6/uL (4.20-5.50); White Blood Count 9.9 X10*3/uL (4.8-10.8)
[2025-02-12 06:42] LABS: Anion Gap 16 (12-20); Blood Urea Nitrogen 28 mg/dL (9-16); Calcium 8.1 mg/dL (8.4-10.2); Carbon Dioxide 25 mmol/L (22-29); Chloride 106 mmol/L (96-108); Creatinine Clr Calc Pharmacy 32.6; Estimated Glomerular Filt Rate > 60; Potassium 3.8 mmol/L (3.3-5.1); Sodium 143 mmol/L (135-145)
[2025-02-12 06:44] VITALS: BP 110/56; PULSE 63; RESP 16; TEMP 36.6; O2SAT 92
--- NOTE | 2025-02-12 07:28 | PM.PNGS ---
Subjective Subjective Date of Service: 02/12/25 <Sabrina Grayson PA-C - Last Filed: 02/12/25 07:31> 02/12/25 <Ze Uriostegui MD - Last Filed: 02/12/25 08:22> Interval history: States she feels better, denies abdominal pain at rest. Denies flatus or BM. Denies nausea. Has been OOB to bathroom. <Sabrina Grayson PA-C - Last Filed: 02/12/25 07:31> Physical Exam Vital Signs: Vital Signs: Last Vital Signs Temp 97.9 F 02/12/25 06:44 Pulse 63 02/12/25 06:44 Resp 16 02/12/25 06:44 BP 110/56 L 02/12/25 06:44 Pulse Ox 92 02/12/25 06:44 O2 Del Method Room Air 02/12/25 06:44 O2 Flow Rate 1 02/11/25 10:01 BMI result Body Mass Index 18.2 <Sabrina Grayson PA-C - Last Filed: 02/12/25 07:31> Const: General: comfortable, no acute distress and alert <Sabrina Grayson PA-C - Last Filed: 02/12/25 07:31> Orientation/consciousness: patient oriented x3 <FERNIE Rodriguez Last Filed: 02/12/25 07:31> HEENT: Other: NGT in place dark bilious output <Sabrina Grayson PA-C - Last Filed: 02/12/25 07:31> Resp: Effort & Inspection: normal respiratory effort, able to speak in complete sentences and not tachypneic <Sabrina Grayson PA-C - Last Filed: 02/12/25 07:31> GI: Other: soft, remains distended and tympanitic mild left sided tenderness to deep palpation <FERNIE Rodriguez Last Filed: 02/12/25 07:31> Palpation (GI): no guarding <FERNIE Rodriguez Last Filed: 02/12/25 07:31> Skin: General skin exam: no rashes or lesions noted <FERNIE Rodriguez Last Filed: 02/12/25 07:31> Neuro: General: patient oriented x3 and moves all extremities <Sabrina Grayson PA-C - Last Filed: 02/12/25 07:31> Objective Data Active Medications Heparin Sodium (Porcine) (Heparin Sodium,Porcine 5,000 Unit/Ml Vial) 5,000 unit SUBCUT Q12H [facility] Lactated Ringer's (Lr) 1,000 mls @ 80 mls/hr IVCONT .[id number] [facility] Last Admin: 02/11/25 20:33 Dose: 80 mls/hr Documented By: KEVAN Acetaminophen (Ofirmev) 1,000 mg in 100 mls @ 400 mls/hr IV Q6H PRN PRN Reason: Pain, Mild 1-3,fever,headache Last Infusion: 02/12/25 00:16 Dose: Infused Documented By: KEVAN Levothyroxine Sodium (Levothyroxine Sodium 25 Mcg Tablet) 25 mcg PO DAILY@0600 [facility] Last Admin: 02/12/25 05:49 Dose: Not Given Documented By: KEVAN Non-Admin Reason: NPO Lisinopril (Lisinopril 2.5 Mg Tablet) 2.5 mg PO DAILY [facility]; Protocol Last Admin: 02/11/25 16:48 Dose: 2.5 mg Documented By: PARDEEP Comments: NG suction paused Morphine Sulfate (Morphine Sulfate 4 Mg/Ml Cartridge) 2 mg IVPUSH Q3H PRN; Protocol PRN Reason: Pain, Severe (Pain Scale 7-10) Last Admin: 02/11/25 23:54 Dose: 2 mg Documented By: KEVAN Ondansetron HCl (Ondansetron Hcl 4 Mg/2 Ml Vial) 4 mg IVPUSH Q8H PRN PRN Reason: Nausea and Vomiting Last Admin: 02/11/25 15:30 Dose: 4 mg Documented By: PARDEEP Sodium Chloride (0.9 % Sodium Chloride Flush 3 Ml Syringe) [facility] Last Admin: 02/11/25 23:45 Dose: Not Given Documented By: KEVAN Non-Admin Reason: IV Running <Sabrina Grayson PA-C - Last Filed: 02/12/25 07:31> Labs CBC & Chem 7: 02/12/25 06:13 02/12/25 06:13 <Sabrina Grayson PA-C - Last Filed: 02/12/25 07:31> Labs: Laboratory Results - last 24 hr 02/11/25 02/11/25 02/11/25 07:54 08:50 15:26 MCV 92.6 MCH 30.7 MCHC 33.2 RDW 13.0 Plt Count 253 MPV 10.2 Immature Gran % (Auto) 0.6 H Neut % (Auto) 72.6 Lymph % (Auto) 16.4 L [place] % (Auto) 10.2 Eos % (Auto) 0.0 Baso % (Auto) 0.2 Lymph # (Auto) 1.7 [place] # (Auto) 1.1 Eos # (Auto) 0.0 Baso # (Auto) 0.0 Abs Immat Gran (auto) 0.06 H Absolute Neuts (auto) 7.6 Absolute Nucleated RBC 0.000 Nucleated RBC % (auto) 0.0 Anion Gap 12 Estim Creat Clear Calc 27.3 Estimated GFR 52 Random Glucose 112 Calcium 8.3 L Magnesium 1.9 Total Bilirubin 0.8 Direct Bilirubin 0.4 AST 67 H ALT 31 Alkaline Phosphatase 61 Troponin I High Sens 14.3 Total Protein 5.5 L Albumin 3.6 Lipase 14 Urine Color Yellow Urine Appearance Clear Urine pH 6.0 Ur Specific [place] >= 1.030 H Urine Protein Trace Urine Glucose (UA) Negative Urine Ketones 15 Urine Blood Large (3+) H Urine Nitrite Positive H Ur Leukocyte Esterase Negative Urine RBC >20 H Urine WBC 11-20 H Ur Squamous Epith Cells 0-2 Urine Bacteria 4+ Hyaline Casts 0-2 Blood Type B Positive Antibody Screen NEGATIVE 02/12/25 06:13 MCV 95.0 MCH 30.9 MCHC 32.5 RDW 12.8 Plt Count 212 MPV 10.4 Immature Gran % (Auto) 0.4 Neut % (Auto) 59.8 Lymph % (Auto) 27.7 [place] % (Auto) 11.7 H Eos % (Auto) 0.2 Baso % (Auto) 0.2 Lymph # (Auto) 2.7 [place] # (Auto) 1.2 Eos # (Auto) 0.0 Baso # (Auto) 0.0 Abs Immat Gran (auto) 0.04 H Absolute Neuts (auto) 5.9 Absolute Nucleated RBC 0.000 Nucleated RBC % (auto) 0.0 Anion Gap 16 Estim Creat Clear Calc 32.6 Estimated GFR > 60 Random Glucose 70 Calcium 8.1 L Magnesium Total Bilirubin Direct Bilirubin AST ALT Alkaline Phosphatase Troponin I High Sens Total Protein Albumin Lipase Urine Color Urine Appearance Urine pH Ur Specific [place] Urine Protein Urine Glucose (UA) Urine Ketones Urine Blood Urine Nitrite Ur Leukocyte Esterase Urine RBC Urine WBC Ur Squamous Epith Cells Urine Bacteria Hyaline Casts Blood Type Antibody Screen <Sabrina Grayson PA-C - Last Filed: 02/12/25 07:31> Procedures Date of Service Date of Service: 02/12/25 <Sabrina Grayson PA-C - Last Filed: 02/12/25 07:31> 02/12/25 <Ze Uriostegui MD - Last Filed: 02/12/25 08:22> Progress Note: A&P Assessment and plan (1) Small bowel obstruction: Status: Acute <Sabrina Grayson PA-C - Last Filed: 02/12/25 07:31> Assessment and Plan: Says she feels well Denies abdominal pain Abdomen remained soft, benign NG tube output still elevated Plan small bowel series with Gastrografin She looks well overall Out of bed, ambulate IV fluids Seen and examined independently <Ze Uriostegui MD - Last Filed: 02/12/25 08:22> Assessment and Plan: Unfortunately no evidence of GI function, abd remains distended and tympanitic but soft but clinically appearing well. Will obtain SBFT today. Keep NGT in place for now, cont IVF. Encouraged OOB/ambulation and increasing activity to promote GI function. <Sabrina Grayson PA-C - Last Filed: 02/12/25 07:31> Time Spent With Patient Time: Total time managing care of this patient today ____ minutes. <Sabrina Grayson PA-C - Last Filed: 02/12/25 07:31> Quality Stroke Does the patient have a stroke diagnosis?: No <FERNIE Rodriguez Last Filed: 02/12/25 07:31> VTE Prior VTE?: No <Sabrina Grayson PA-C - Last Filed: 02/12/25 07:31> VTE Risk Level:: Surgical - moderate <Sabrina Grayson PA-C - Last Filed: 02/12/25 07:31> VTE Device Contraindication: N/A - Device Ordered <FERNIE Rodriguez Last Filed: 02/12/25 07:31> VTE Drug Contraindication: N/A - Med Ordered <Sabrina Grayson PA-C - Last Filed: 02/12/25 07:31>
[2025-02-12] MEDS: Lactated Ringers 1,000 ML 80 ML IVCONT (08:12)
[2025-02-12] MEDS: 0.9 % Sodium Chloride Flush 3 ML SYRINGE IVFLUSH ×2 (08:14→18:35)
--- NOTE | 2025-02-12 10:15 | PC.NURSE ---
Patient down in radiology, radiology called and asked if nursing could medicate patient for nausea. Nursing went down to radiology with computer on wheels and medicated patient per MAR for nausea.
--- NOTE | 2025-02-12 10:53 | HO.ANESPROP2 ---
Documented by User: Mishel Salgado NP 02/12/25 12:48 HPI - Anesthesia Eval Consult details Narrative: 89 yr old female for ex laparotomy, enterolysis H/O small bowel obstruction 2/2 adhesions, laparotomy 15 yrs ago; h/o gastric bypass No recent illness Lives independently, does laps in pool, pilates, yoga routinely; no CP/SOB Had knee replacement 8 months ago in [place], spinal anesthesia, did well. Reports moderate N/V with GA previously 10 yrs ago; does not recall using scopolamine patch PMFSH Active Problems Active Problems: All Active Problems Abdominal pain (Acute) Small bowel obstruction (Acute) Past Medical History Medical History (Updated 02/11/25 @ 09:51 by Nalini Benitez DO) Small bowel obstruction due to adhesions Hypothyroidism Hypertension Surgical History Surgical History (Updated 02/11/25 @ 11:44 by Sabrina Grayson PA-C) H/O gastric bypass History of laparotomy H/O: hysterectomy History of appendectomy Social History Social History (Updated 02/11/25 @ 07:53 by Nalini Benitez DO) Household Members: None Housing: House Do you presently have visiting nurse or other home services: No Patient Tobacco Use Status: Never used Tobacco Advance Directives Date on File: 02/11/25 service: No Meds Allergies Allergy/AdvReac Type Severity Reaction Status Date / Time codeine Allergy Headache Verified 02/11/25 07:36 Active Medications: Current Medications Heparin Sodium (Porcine) (Heparin Sodium,Porcine 5,000 Unit/Ml Vial) 5,000 unit SUBCUT Q12H LIZZ Lactated Ringer's (Lr) 1,000 mls @ 100 mls/hr IVCONT .Q10H [facility] Last Infusion: 02/12/25 10:51 Dose: 100 mls/hr Acetaminophen (Ofirmev) 1,000 mg in 100 mls @ 400 mls/hr IV Q6H PRN PRN Reason: Pain, Mild 1-3,fever,headache Last Infusion: 02/12/25 00:16 Dose: Infused Levothyroxine Sodium (Levothyroxine Sodium 25 Mcg Tablet) 25 mcg PO DAILY@0600 [facility] Last Admin: 02/12/25 05:49 Dose: Not Given Lisinopril (Lisinopril 2.5 Mg Tablet) 2.5 mg PO DAILY [facility]; Protocol Last Admin: 02/11/25 16:48 Dose: 2.5 mg Morphine Sulfate (Morphine Sulfate 4 Mg/Ml Cartridge) 2 mg IVPUSH Q3H PRN; Protocol PRN Reason: Pain, Severe (Pain Scale 7-10) Last Admin: 02/12/25 10:49 Dose: 2 mg Ondansetron HCl (Ondansetron Hcl 4 Mg/2 Ml Vial) 4 mg IVPUSH Q8H PRN PRN Reason: Nausea and Vomiting Last Admin: 02/12/25 10:10 Dose: 4 mg Sodium Chloride (0.9 % Sodium Chloride Flush 3 Ml Syringe) 3 ml IVFLUSH QSHIFT [facility] Last Admin: 02/12/25 08:14 Dose: 3 ml Home Medications ?Medication ?Instructions ?Recorded ?Confirmed ?Last Taken ?Type estradiol 0.5 mg tablet 0.25 mg PO DAILY 02/11/25 02/11/25 02/08/25 History levothyroxine 25 mcg tablet 25 mcg PO DAILY@0600 02/11/25 02/11/25 02/08/25 History lisinopril 2.5 mg tablet 2.5 mg PO DAILY 02/11/25 02/11/25 02/08/25 History Exam Height,Weight and Vital Signs: Height 5 ft 3 in Weight 46.7 kg Last Vital Signs Temp 97.9 F 02/12/25 06:44 Pulse 63 02/12/25 06:44 Resp 16 02/12/25 06:44 BP 110/56 L 02/12/25 06:44 Pulse Ox 92 02/12/25 06:44 O2 Del Method Room Air 02/12/25 06:44 O2 Flow Rate 1 02/11/25 10:01 Pertinent Lab Results Pertinent Lab Results: Laboratory Tests 02/11/25 02/11/25 02/11/25 07:54 08:50 15:26 WBC 10.4 RBC 4.88 Hgb 15.0 Hct 45.2 MCV 92.6 MCH 30.7 MCHC 33.2 RDW 13.0 Plt Count 253 MPV 10.2 Immature Gran % (Auto) 0.6 H Neut % (Auto) 72.6 Lymph % (Auto) 16.4 L [place] % (Auto) 10.2 Eos % (Auto) 0.0 Baso % (Auto) 0.2 Lymph # (Auto) 1.7 [place] # (Auto) 1.1 Eos # (Auto) 0.0 Baso # (Auto) 0.0 Abs Immat Gran (auto) 0.06 H Absolute Neuts (auto) 7.6 Absolute Nucleated RBC 0.000 Nucleated RBC % (auto) 0.0 Sodium 142 Potassium 4.4 Chloride 105 Carbon Dioxide 29 Anion Gap 12 BUN 33 H Creatinine 1.00 Estim Creat Clear Calc 27.3 Estimated GFR 52 Random Glucose 112 Calcium 8.3 L Magnesium 1.9 Total Bilirubin 0.8 Direct Bilirubin 0.4 AST 67 H ALT 31 Alkaline Phosphatase 61 Troponin I High Sens 14.3 Total Protein 5.5 L Albumin 3.6 Lipase 14 Urine Color Yellow Urine Appearance Clear Urine pH 6.0 Ur Specific [place] >= 1.030 H Urine Protein Trace Urine Glucose (UA) Negative Urine Ketones 15 Urine Blood Large (3+) H Urine Nitrite Positive H Ur Leukocyte Esterase Negative Urine RBC >20 H Urine WBC 11-20 H Ur Squamous Epith Cells 0-2 Urine Bacteria 4+ Hyaline Casts 0-2 Blood Type B Positive Antibody Screen NEGATIVE 02/12/25 06:13 WBC 9.9 RBC 4.18 L Hgb 12.9 Hct 39.7 MCV 95.0 MCH 30.9 MCHC 32.5 RDW 12.8 Plt Count 212 MPV 10.4 Immature Gran % (Auto) 0.4 Neut % (Auto) 59.8 Lymph % (Auto) 27.7 [place] % (Auto) 11.7 H Eos % (Auto) 0.2 Baso % (Auto) 0.2 Lymph # (Auto) 2.7 [place] # (Auto) 1.2 Eos # (Auto) 0.0 Baso # (Auto) 0.0 Abs Immat Gran (auto) 0.04 H Absolute Neuts (auto) 5.9 Absolute Nucleated RBC 0.000 Nucleated RBC % (auto) 0.0 Sodium 143 Potassium 3.8 Chloride 106 Carbon Dioxide 25 Anion Gap 16 BUN 28 H Creatinine 0.86 Estim Creat Clear Calc 32.6 Estimated GFR > 60 Random Glucose 70 Calcium 8.1 L Magnesium Total Bilirubin Direct Bilirubin AST ALT Alkaline Phosphatase Troponin I High Sens Total Protein Albumin Lipase Urine Color Urine Appearance Urine pH Ur Specific [place] Urine Protein Urine Glucose (UA) Urine Ketones Urine Blood Urine Nitrite Ur Leukocyte Esterase Urine RBC Urine WBC Ur Squamous Epith Cells Urine Bacteria Hyaline Casts Blood Type Antibody Screen Documented by User: Tim Arce MD 02/13/25 12:37 [facility] Past Medical History Medical History (Updated 02/11/25 @ 09:51 by Nalini Benitez DO) Small bowel obstruction due to adhesions Hypothyroidism Hypertension Functional capacity: independent ambulation Family History Family history of problems with anesthesia: No Surgical History Surgical History (Updated 02/11/25 @ 11:44 by Sabrina Grayson PA-C) H/O gastric bypass History of laparotomy H/O: hysterectomy History of appendectomy History of Problems with Anesthesia: No (ponv) Social History Social History (Updated 02/11/25 @ 07:53 by Nalini Benitez DO) Household Members: None Housing: House Do you presently have visiting nurse or other home services: No Patient Tobacco Use Status: Never used Tobacco Advance Directives Date on File: 02/11/25 service: No Meds Allergies Allergy/AdvReac Type Severity Reaction Status Date / Time codeine Allergy Headache Verified 02/11/25 07:36 Home Medications ?Medication ?Instructions ?Recorded ?Confirmed ?Last Taken ?Type estradiol 0.5 mg tablet 0.25 mg PO DAILY 02/11/25 02/11/25 02/08/25 History levothyroxine 25 mcg tablet 25 mcg PO DAILY@0600 02/11/25 02/11/25 02/08/25 History lisinopril 2.5 mg tablet 2.5 mg PO DAILY 02/11/25 02/11/25 02/08/25 History Exam Exam Date and Time: 02/13/2025 Airway Mallampati Class: II TM Dist: <=3cm Neck ROM: Limited Heart: normal Lungs: normal Other: normal Assessment and Plan Final Anesthetic Review Family History of Problems with Anesthesia: No History of Problems with Anesthesia: No (ponv) NPO: Yes ASA Class: II Final Preanesthetic Review: No Changes in Pt Med Stat, Meds/Allgs Chart Reviewed and Consent Obtained/Reviewed Patient Risk: Intermediate Procedure Risk: Intermediate Anesthetic Plan Anesthetic Plan: GA Disposition: Standard PACU
--- NOTE | 2025-02-12 10:55 | PC.NURSE ---
Patient returned to unit from radiology, patient complaining of nausea and pain. Pain medications administered per JUN. Reached out to Dr. Uriostegui via [employer] and was told to keep NG tube clamped to complete radiology study. NG tube remains clamped for now and IV fluids resumed.
--- NOTE | 2025-02-12 11:38 | P.PNIM_ITS ---
Subjective Subjective Date of Service: 02/12/25 Interval History: migueong n/v Physical Exam 2 Vital Signs: Vital Signs: Last Vital Signs Temp 97.9 F 02/12/25 06:44 Pulse 63 02/12/25 06:44 Resp 16 02/12/25 06:44 BP 110/56 L 02/12/25 06:44 Pulse Ox 92 02/12/25 06:44 O2 Del Method Room Air 02/12/25 06:44 O2 Flow Rate 1 02/11/25 10:01 BMI result Body Mass Index 18.2 Const: General: comfortable, no acute distress and alert O rientation/consciousness: patient oriented x3 HEENT: Other: NGT in place dark bilious output Resp: Effort & Inspection: normal respiratory effort, able to speak in complete sentences and not tachypneic GI: Other: soft, remains distended and tympanitic mild left sided tenderness to deep palpation Palpation (GI): no guarding Skin: General skin exam: no rashes or lesions noted Neuro: General: patient oriented x3 and moves all extremities Objective Data Active Medications Heparin Sodium (Porcine) (Heparin Sodium,Porcine 5,000 Unit/Ml Vial) 5,000 unit SUBCUT Q12H LIZZ Lactated Ringer's (Lr) 1,000 mls @ 100 mls/hr IVCONT .Q10H [facility] Last Infusion: 02/12/25 10:51 Dose: 100 mls/hr Documented By: SHUKRI Acetaminophen (Ofirmev) 1,000 mg in 100 mls @ 400 mls/hr IV Q6H PRN PRN Reason: Pain, Mild 1-3,fever,headache Last Infusion: 02/12/25 00:16 Dose: Infused Documented By: KEVAN Levothyroxine Sodium (Levothyroxine Sodium 25 Mcg Tablet) 25 mcg PO DAILY@0600 [facility] Last Admin: 02/12/25 05:49 Dose: Not Given Documented By: KEVAN Non-Admin Reason: NPO Lisinopril (Lisinopril 2.5 Mg Tablet) 2.5 mg PO DAILY [facility]; Protocol Last Admin: 02/12/25 10:54 Dose: Not Given Documented By: SHUKRI Non-Admin Reason: NPO Morphine Sulfate (Morphine Sulfate 4 Mg/Ml Cartridge) 2 mg IVPUSH Q3H PRN; Protocol PRN Reason: Pain, Severe (Pain Scale 7-10) Last Admin: 02/12/25 10:49 Dose: 2 mg Documented By: SHUKRI Ondansetron HCl (Ondansetron Hcl 4 Mg/2 Ml Vial) 4 mg IVPUSH Q8H PRN PRN Reason: Nausea and Vomiting Last Admin: 02/12/25 10:10 Dose: 4 mg Documented By: SHUKRI Sodium Chloride (0.9 % Sodium Chloride Flush 3 Ml Syringe) 3 ml IVFLUSH QSHIFT LIZZ Last Admin: 02/12/25 08:14 Dose: 3 ml Documented By: SHUKRI Labs 02/12/25 06:13 02/12/25 06:13 Labs: Laboratory Results - last 24 hr 02/11/25 02/12/25 15:26 06:13 MCV 95.0 MCH 30.9 MCHC 32.5 RDW 12.8 Plt Count 212 MPV 10.4 Immature Gran % (Auto) 0.4 Neut % (Auto) 59.8 Lymph % (Auto) 27.7 [place] % (Auto) 11.7 H Eos % (Auto) 0.2 Baso % (Auto) 0.2 Lymph # (Auto) 2.7 [place] # (Auto) 1.2 Eos # (Auto) 0.0 Baso # (Auto) 0.0 Abs Immat Gran (auto) 0.04 H Absolute Neuts (auto) 5.9 Absolute Nucleated RBC 0.000 Nucleated RBC % (auto) 0.0 Anion Gap 16 Estim Creat Clear Calc 32.6 Estimated GFR > 60 Random Glucose 70 Calcium 8.1 L Urine Color Yellow Urine Appearance Clear Urine pH 6.0 Ur Specific [place] >= 1.030 H Urine Protein Trace Urine Glucose (UA) Negative Urine Ketones 15 Urine Blood Large (3+) H Urine Nitrite Positive H Ur Leukocyte Esterase Negative Urine RBC >20 H Urine WBC 11-20 H Ur Squamous Epith Cells 0-2 Urine Bacteria 4+ Hyaline Casts 0-2 Assessment and Plan (1) Small bowel obstruction: Status: Acute Plan 89F PMH HTN, hypothyroid, gastric bypass, SBO, presented with n/v found to have SBO SBO NGT, ivf, pain meds, follow up SBFT, surgery following HTN lisinopril hypothryoid levothyroxine dvt prophylaxis - hep sq full code Quality Stroke Does the patient have a stroke diagnosis?: No VTE Prior VTE?: No VTE Risk Level:: Surgical - moderate VTE Device Contraindication: N/A - Device Ordered VTE Drug Contraindication: N/A - Med Ordered
--- NOTE | 2025-02-12 12:36 | PC.NURSE ---
NG tube remains clamped for radiology study, but patient complains of worsening abdominal pain and nausea with dry heaving. Provider Beverly Grayson notified via [employer] and came to bedside, patient placed on low intermittent suction by provider.
[2025-02-12 14:03] VITALS: BMI 18.2
[2025-02-12] MEDS: Throat Lozenge, Medicated LOZENGE 1 LOZENGE MUCOUS MEM ×2 (14:26→18:35)
--- NOTE | 2025-02-12 14:49 | PM.EVENT ---
Event Note Date of Service: 02/13/25 Event Note: Seen on afternoon rounds She says she got nauseous with Gastrografin NG tube unclamped and output remained high Abdomen otherwise benign I have reviewed her images from her KUB - persistent small bowel loop dilatation with no significant advancement of oral contrast Repeat KUB in the morning Explained to her that there is a high likelihood that if she does not improve, we will need to proceed with laparotomy tomorrow Explained this to her family as well Stable vital signs currently Time Spent With Patient Time: Total time managing care of this patient today ____ minutes.
[2025-02-12 14:50] VITALS: BP 110/72; PULSE 61; RESP 18; TEMP 36.4; O2SAT 93
--- NOTE | 2025-02-12 14:51 | MHC.CLN ---
NUTRITION CURRENTLY NPO DUE TO SBO. HAS NG TUBE FOR OUTPUT. POOR PO/DIET INTOLERANCE X 4 DAYS. QUALIFIES UNDERWEIGHT WITH BMI 18.2. WEIGHT IS WITHIN REPORTED USUAL BODY WEIGHT RANGE. FOLLOW FOR DIET ADVANCEMENT AND PO INTAKE. SEE CLINICAL NUTRITION ASSESSMENT 02/12/25.
--- NOTE | 2025-02-12 15:39 | MHC.CM.PN ---
IMM 02/12/25 DX SBO PMH GASTRIC BIPASS SBO W RESECTION NG tube is in place. Per surgeons documentation, patient may need LAP Tamika tomorrow. She is independent with all functional mobility. No DME She lives in [place]., see H+P Copy of HCP requested DP Home self care family transport.
--- NOTE | 2025-02-12 17:00 | PC.NURSE ---
17:00 - patient up and ambulated in hallway with [employer]. patient reported 1 small flatus occurrence. Nausea improved with NG tube on low intermittent suction.
[2025-02-12 19:07] VITALS: BP 112/80; PULSE 65; RESP 18; TEMP 36.8; O2SAT 93
[2025-02-12] MEDS: Lactated Ringers 1,000 ML 100 ML IVCONT (20:29)
[2025-02-13] VITALS (11 sets, daily range): BP systolic 78–175; BP diastolic 42–78; PULSE 49–63; RESP 14–20; TEMP 36–36.7; O2SAT 92–96; BMI 18.2
[2025-02-13] MEDS: Lactated Ringers 1,000 ML 100 ML IVCONT (05:47)
[2025-02-13 05:54] LABS: MANUAL DIFF FLAG NO
[2025-02-13 05:56] LABS: Hematocrit 40.6 % (37.0-47.0); Hemoglobin 12.7 g/dl (12.0-16.0); Imm Gran Abs Auto 0.03 X10*3/uL (0.00-0.03); Imm Gran Pct Auto 0.3 % (0.0-0.4); Lymphocytes Absolute Auto 1.9 X10*3/uL (1.2-4.9); Mean Corpuscular HGB Conc 31.3 g/dl (31.0-35.0); Mean Corpuscular Hemoglobin 30.0 pg (27.0-33.0); Mean Corpuscular Volume 96.0 fL (80.0-98.0); NRBC Abs Auto 0.000 X10*3/uL (0.0-0.012); NRBC Pct Auto 0.0 /100WBC (0.0-0.2); Platelet Count 200 X10*3/uL (160-400); Red Blood Count 4.23 X10*6/uL (4.20-5.50); White Blood Count 9.1 X10*3/uL (4.8-10.8)
[2025-02-13 06:12] LABS: Anion Gap 19 (12-20); Blood Urea Nitrogen 30 mg/dL (9-16); Calcium 8.7 mg/dL (8.4-10.2); Carbon Dioxide 28 mmol/L (22-29); Chloride 105 mmol/L (96-108); Creatinine Clr Calc Pharmacy 29.0; Estimated Glomerular Filt Rate 54; Magnesium 2.3 mg/dL (1.6-2.6); Potassium 3.8 mmol/L (3.3-5.1); Sodium 148 mmol/L (135-145)
--- NOTE | 2025-02-13 07:57 | P.PNGS_ITS ---
Subjective Subjective Date of Service: 02/13/25 <Sabrina Grayson PA-C - Last Filed: 02/13/25 08:00> 02/13/25 <Ze Uriostegui MD - Last Filed: 02/13/25 09:39> Interval history: Began to pass a small amount of flatus overnight but did have a significant amount of output from NGT. Feels improved with less abdominal pain and discomfort. <Sabrina Grayson PA-C - Last Filed: 02/13/25 08:00> Physical Exam 2 Vital Signs: Vital Signs: Last Vital Signs Temp 98.0 F 02/13/25 07:47 Pulse 63 02/13/25 07:47 Resp 14 02/13/25 07:47 BP 175/77 H 02/13/25 07:47 Pulse Ox 96 02/13/25 07:47 O2 Del Method Room Air 02/13/25 07:47 O2 Flow Rate 1 02/11/25 10:01 BMI result Body Mass Index 18.2 <Sabrina Grayson PA-C - Last Filed: 02/13/25 08:00> Const: General: comfortable, no acute distress and alert <Sabrina Grayson PA-C - Last Filed: 02/13/25 08:00> Orientation/consciousness: patient oriented x3 <FERNIE Rodriguez Last Filed: 02/13/25 08:00> Resp: Effort & Inspection: normal respiratory effort <Sabrina Grayson PA-C - Last Filed: 02/13/25 08:00> GI: Other: remains distended, maybe mildly improved soft nontender <Sabrina Grayson PA-C - Last Filed: 02/13/25 08:00> Palpation (GI): no guarding and not rigid <FERNIE Rodriguez Last Filed: 02/13/25 08:00> Skin: General skin exam: no rashes or lesions noted <FERNIE Rodriguez Last Filed: 02/13/25 08:00> Neuro: General: patient oriented x3 and moves all extremities <FERNIE Rodriguez Last Filed: 02/13/25 08:00> Objective Data Active Medications Benzocaine (Throat Lozenge, Medicated Lozenge) 1 lozenge MUCOUS MEM Q2H PRN PRN Reason: Sore Throat Last Admin: 02/12/25 18:35 Dose: 1 lozenge Documented By: SHUKRI Heparin Sodium (Porcine) (Heparin Sodium,Porcine 5,000 Unit/Ml Vial) 5,000 unit SUBCUT Q12H [facility] Last Admin: 02/12/25 23:25 Dose: 5,000 unit Documented By: MICHAEL Lactated Ringer's (Lr) 1,000 mls @ 100 mls/hr IVCONT .Q10H [facility] Last Admin: 02/13/25 05:47 Dose: 100 mls/hr Documented By: MICHAEL Acetaminophen (Ofirmev) 1,000 mg in 100 mls @ 400 mls/hr IV Q6H PRN PRN Reason: Pain, Mild 1-3,fever,headache Last Infusion: 02/12/25 23:50 Dose: Infused Documented By: MICHAEL Levothyroxine Sodium (Levothyroxine Sodium 25 Mcg Tablet) 25 mcg PO DAILY@0600 [facility] Last Admin: 02/13/25 05:08 Dose: Not Given Documented By: MICHAEL Non-Admin Reason: NPO Comments: nop no po med per order Lisinopril (Lisinopril 2.5 Mg Tablet) 2.5 mg PO DAILY [facility]; Protocol Last Admin: 02/12/25 10:54 Dose: Not Given Documented By: SHUKRI Non-Admin Reason: NPO Morphine Sulfate (Morphine Sulfate 4 Mg/Ml Cartridge) 2 mg IVPUSH Q3H PRN; Protocol PRN Reason: Pain, Severe (Pain Scale 7-10) Last Admin: 02/12/25 18:35 Dose: 2 mg Documented By: SHUKRI Ondansetron HCl (Ondansetron Hcl 4 Mg/2 Ml Vial) 4 mg IVPUSH Q8H PRN PRN Reason: Nausea and Vomiting Last Admin: 02/12/25 10:10 Dose: 4 mg Documented By: SHUKRI Sodium Chloride (0.9 % Sodium Chloride Flush 3 Ml Syringe) 3 ml IVFLUSH QSHIFT [facility] Last Admin: 02/12/25 20:30 Dose: Not Given Documented By: MICHAEL Non-Admin Reason: IV Running <Sabrina Grayson PA-C - Last Filed: 02/13/25 08:00> Labs CBC & Chem 7: 02/13/25 05:47 02/13/25 05:47 <Sabrina Grayson PA-C - Last Filed: 02/13/25 08:00> Labs: Laboratory Results - last 24 hr 02/13/25 05:47 MCV 96.0 MCH 30.0 MCHC 31.3 RDW 12.8 Plt Count 200 MPV 10.8 Immature Gran % (Auto) 0.3 Neut % (Auto) 68.6 Lymph % (Auto) 20.3 [place] % (Auto) 10.4 Eos % (Auto) 0.3 Baso % (Auto) 0.1 Lymph # (Auto) 1.9 [place] # (Auto) 1.0 Eos # (Auto) 0.0 Baso # (Auto) 0.0 Abs Immat Gran (auto) 0.03 Absolute Neuts (auto) 6.3 Absolute Nucleated RBC 0.000 Nucleated RBC % (auto) 0.0 Anion Gap 19 Estim Creat Clear Calc 29.0 Estimated GFR 54 Fasting Glucose 73 Calcium 8.7 D Magnesium 2.3 <Sabrina Grayson PA-C - Last Filed: 02/13/25 08:00> Microbiology Microbiology Results: Microbiology 02/11/25 15:52 Urine Culture - Final Urine clean catch - Clean Catch Midstream Klebsiella pneumoniae <Sabrina Grayson PA-C - Last Filed: 02/13/25 08:00> Procedures Date of Service Date of Service: 02/13/25 <Sabrina Grayson PA-C - Last Filed: 02/13/25 08:00> 02/13/25 <Ze Uriostegui MD - Last Filed: 02/13/25 09:39> Progress Note: A&P Assessment and plan (1) Small bowel obstruction: Status: Acute <Sabrina Grayson PA-C - Last Filed: 02/13/25 08:00> Assessment and Plan: Denies significant pain Continues to have high output from her NG tube, thick She states she may have passed flatus 3 times Abdomen distended but soft I have reviewed her CAT scan images and KUB with the radiologist It appears she has high-grade obstruction in the distal ileum, maybe in multiple segments Contrast from yesterday has not passed the colon I therefore explained to her that in view of the above findings along with her persistent high output from her NG tube, it may be best to proceed with laparotomy I explained the technique of laparotomy with possible bowel resection I reviewed the risks including but not limited to bleeding, infections, staple line leak, bowel injury, heart attack, pneumonia, strokes and other inherent risks of anesthesia She has given consent I have discussed the above with her family <Ze Uriostegui MD - Last Filed: 02/13/25 09:39> Assessment and Plan: SBFT yesterday showed no contrast in the colon at 3h 30 min. Did have high output from NGT overnight but does have some evidence of GI function, abdomen maybe less distended this am. Await AM KUB. Hopefully contrast has progressed and can avoid surgery. We did discuss if it does not show progression, we will likely need to proceed with laparotomy, lysis of adhesions. She understands and agrees with plan. Nutrition consult for PPN initiation. AM labs reviewed. < Sabrina Grayson PA-C - Last Filed: 02/13/25 08:00> Time Spent With Patient Time: Total time managing care of this patient today ____ minutes. <Sabrina Grayson PA-C - Last Filed: 02/13/25 08:00> Quality Stroke Does the patient have a stroke diagnosis?: No <Sabrina Grayson PA-C - Last Filed: 02/13/25 08:00> VTE Prior VTE?: No <Sabrina Grayson PA-C - Last Filed: 02/13/25 08:00> VTE Risk Level:: Surgical - moderate <Sabrina Grayson PA-C - Last Filed: 02/13/25 08:00> VTE Device Contraindication: N/A - Device Ordered <Sabrina Grayson PA-C - Last Filed: 02/13/25 08:00> VTE Drug Contraindication: N/A - Med Ordered <Sabrina Grayson PA-C - Last Filed: 02/13/25 08:00>
[2025-02-13] MEDS: 0.9 % Sodium Chloride Flush 3 ML SYRINGE IVFLUSH ×3 (08:30→20:31)
--- NOTE | 2025-02-13 10:02 | MHC.CLN ---
CONSULT PT REQUIRES PPN FOR NUTRITION SUPPORT R/T PROLONGED NPO STATUS PT IS UNDER WT FOR HT; BMI 18.2 NO PREVIOUS WT HX ON RECORD UBW BETWEEN 100-105# PER PT REVIEWED LABS DISCUSSED WITH PHARMACY RECOMMEND PPN AT 55ML/HR TO PROVIDE 673KCALS, 132G DEXTROSE, 56G PROTEIN (1.2G/KG) REPLETE LYTES NEEDED; CHECK TRIGS FOR LIPIDS TOMORROW SEE FULL ASSESSMENT
--- NOTE | 2025-02-13 11:17 | P.PNIM_ITS ---
Subjective Subjective Date of Service: 02/13/25 Interval History: some gas, no bm Physical Exam 2 Vital Signs: Vital Signs: Last Vital Signs Temp 98.0 F 02/13/25 07:47 Pulse 63 02/13/25 07:47 Resp 14 02/13/25 07:47 BP 175/77 H 02/13/25 07:47 Pulse Ox 96 02/13/25 07:47 O2 Del Method Room Air 02/13/25 07:47 O2 Flow Rate 1 02/11/25 10:01 BMI result Body Mass Index 18.2 Const: General: comfortable, no acute distress and alert O rientation/consciousness: patient oriented x3 Resp: Effort & Inspection: normal respiratory effort GI: Other: remains distended, maybe mildly improved soft nontender Palpation (GI): no guarding and not rigid Skin: General skin exam: no rashes or lesions noted Neuro: General: patient oriented x3 and moves all extremities Objective Data Active Medications Benzocaine (Throat Lozenge, Medicated Lozenge) 1 lozenge MUCOUS MEM Q2H PRN PRN Reason: Sore Throat Last Admin: 02/12/25 18:35 Dose: 1 lozenge Documented By: SHUKRI Heparin Sodium (Porcine) (Heparin Sodium,Porcine 5,000 Unit/Ml Vial) 5,000 unit SUBCUT Q12H [facility] Last Admin: 02/12/25 23:25 Dose: 5,000 unit Documented By: MICHAEL Lactated Ringer's (Lr) 1,000 mls @ 100 mls/hr IVCONT .Q10H [facility] Last Admin: 02/13/25 05:47 Dose: 100 mls/hr Documented By: MICHAEL Acetaminophen (Ofirmev) 1,000 mg in 100 mls @ 400 mls/hr IV Q6H PRN PRN Reason: Pain, Mild 1-3,fever,headache Last Infusion: 02/13/25 08:52 Dose: Infused Documented By: TAMI Levothyroxine Sodium (Levothyroxine Sodium 25 Mcg Tablet) 25 mcg PO DAILY@0600 [facility] Last Admin: 02/13/25 05:08 Dose: Not Given Documented By: MICHAEL Non-Admin Reason: NPO Comments: nop no po med per order Lisinopril (Lisinopril 2.5 Mg Tablet) 2.5 mg PO DAILY [facility]; Protocol Last Admin: 02/13/25 08:30 Dose: Not Given Documented By: TAMI Non-Admin Reason: NPO Morphine Sulfate (Morphine Sulfate 4 Mg/Ml Cartridge) 2 mg IVPUSH Q3H PRN; Protocol PRN Reason: Pain, Severe (Pain Scale 7-10) Last Admin: 02/12/25 18:35 Dose: 2 mg Documented By: SHUKRI Ondansetron HCl (Ondansetron Hcl 4 Mg/2 Ml Vial) 4 mg IVPUSH Q8H PRN PRN Reason: Nausea and Vomiting Last Admin: 02/12/25 10:10 Dose: 4 mg Documented By: SHUKRI Sodium Chloride (0.9 % Sodium Chloride Flush 3 Ml Syringe) 3 ml IVFLUSH QSHIFT [facility] Last Admin: 02/13/25 08:30 Dose: 3 ml Documented By: TAMI Labs 02/13/25 05:47 02/13/25 05:47 Labs: Laboratory Results - last 24 hr 02/13/25 02/13/25 05:47 10:40 MCV 96.0 MCH 30.0 MCHC 31.3 RDW 12.8 Plt Count 200 MPV 10.8 Immature Gran % (Auto) 0.3 Neut % (Auto) 68.6 Lymph % (Auto) 20.3 [place] % (Auto) 10.4 Eos % (Auto) 0.3 Baso % (Auto) 0.1 Lymph # (Auto) 1.9 [place] # (Auto) 1.0 Eos # (Auto) 0.0 Baso # (Auto) 0.0 Abs Immat Gran (auto) 0.03 Absolute Neuts (auto) 6.3 Absolute Nucleated RBC 0.000 Nucleated RBC % (auto) 0.0 Anion Gap 19 Estim Creat Clear Calc 29.0 Estimated GFR 54 Fasting Glucose 73 Calcium 8.7 D Phosphorus 3.4 Magnesium 2.3 Microbiology Microbiology Results: Microbiology 02/11/25 15:52 Urine Culture - Final Urine clean catch - Clean Catch Midstream Klebsiella pneumoniae Assessment and Plan (1) Small bowel obstruction: Status: Acute Plan 89F PMH HTN, hypothyroid, gastric bypass, SBO, presented with n/v found to have SBO SBO NGT, ivf, pain meds, surgery following, plan for laparotomy today HTN lisinopril hypothryoid levothyroxine dvt prophylaxis - hep sq full code Quality Stroke Does the patient have a stroke diagnosis?: No VTE Prior VTE?: No VTE Risk Level:: Surgical - moderate VTE Device Contraindication: N/A - Device Ordered VTE Drug Contraindication: N/A - Med Ordered
--- NOTE | 2025-02-13 15:21 | W.PM.OPN ---
Operative Note Operative Note Date of Service: 02/13/25 Narrative: Preop diagnosis: High-grade small bowel obstruction Postop diagnosis: High-grade small-bowel obstruction with a kink in the distal small bowel, tethered to broad omental band, with a stricture; extensive adhesions Procedure: Laparotomy, small-bowel resection Surgeon: Ze Uriostegui MD document control assistant: ANDREA Grayson The patient is an 89 year old female with a history of small-bowel resection and hysterectomy in the distant past. She was admitted because of abdominal pain and vomiting. She had a CAT scan suggestive of high-grade obstruction. She underwent a small bowel series yesterday with note of an advancement of oral contrast into the colon. This seemed to be stuck in the small bowel consistent with a high-grade obstruction. She continued to have high output from her NG tube so we felt that it would be best to proceed with laparotomy. She understood the technique of the planned procedure as well as the risks, benefits, and alternatives She was brought to the operating room. She was placed supine under general anesthesia via endotracheal tube. She already had an NG tube in place. A Payne catheter was inserted. The patient received cefazolin 2 g IV preoperatively A TAP and rectus sheath block was done by the anesthesiologist I made a midline incision from the umbilical area down to the suprapubic area with a blade 15. This carried down with electrocautery through the full-thickness of the skin and subcutaneous fat. The fascia was defined. We incised the fascia gently entered the peritoneal cavity. We applied Lissy clamps on the fascial edges. There was note of extensive adhesions on the right side of the abdominal wall tethering bowel loops towards this. We had to do careful lysis of adhesions with Metzenbaum scissors. This part of the procedure took a while until we are able to release this adherent small bowel loops. There was note of marked diffuse distention of the small bowel loops. We were able to expose the entire abdominal cavity. We retracted the abdominal wall with Jiménez retractors. I then proceeded to trace the small bowel from proximal to distal. There was note of adhesions as well tethering loops of small bowel together. There was 1 broad band of omentum that was tethering 1 small bowel loop causing a kink. There was note of a stricture in this kink. Furthermore, there was note of dilated small bowel loops proximal to this followed by collapsed bowel loops distally. We divided this brought band of omentum with the LigaSure to release this. We then proceeded to identify the rest of the small bowel loops, and the old anastomosis which was distal to this obstructed area was seen. This was patent and the lumen was felt between the thumb and index finger We then proceeded to read the entire small bowel starting from the ligament of Treitz all the way to the terminal ileum. There was no other pathology identified. There was no other area that appeared to be obstructed. We noticed that the area of the kink had this stricture which was fibrotic and did not appear to dilate. We decided to proceed with a small-bowel resection. I chose the segment proximal and distal to this that appeared to be healthy for the resection. I created a mesenteric window. I used the NASRIN 60 mm stapler to divide this segment proximal and distal. We then proceeded to do our [id number]-[id number] anastomosis. I opened up the apex of each staple line. I positioned each arm of the NASRIN 60 mm stapler in the anti mesenteric side of the bowel wall. I created our [id number] anastomosis. We completed the anastomosis by closing the enterotomy with a TA 60 mm stapler . About 18 cm of small bowel was resected I proceeded to place a seromuscular Polysorb 3-0 stitch at the crotch of the staple line to release any tension. I closed the mesenteric defect with a running Polysorb 3-0 stitch. We re-examined the entire length of small bowel loop from proximal to distal. There was no other pathology identified. No evidence of any bleeding There was note of a hematoma on the proximal side of the qbkq-[id number]-ykba anastomosis in the used to extend into the staple line itself. I decided to create a new anastomosis because of this hematoma. I transected the anastomosis proximal and distal with NASRIN 60 mm staplers. I then proceeded to resect the mesentery attached to this anastomosis with the LigaSure We then proceeded to create our new cgmq-kc-zevq anastomosis. I opened up the apex of each staple line to enter the lumen. I positioned each arm of the NASRIN 60 mm stapler the anti mesenteric side and this was fired. I made sure that there were no bowel loops caught by the staple line I closed the enterotomy with a TA 60 mm stapler to complete the anastomosis. I was the mesenteric defect with a running Polysorb 3-0 stitch. I applied a seromuscular Polysorb 3-0 stitch at the crotch of the staple line to release tension from this. I palpated for the G-tube in the stomach and this appeared to be in position. We irrigated as there was a little bit of spillage of enteric contents during the creation of the anastomosis. We changed gloves. Once hemostasis was confirmed and the irrigant fluid was clear, we proceeded to close the fascia with a running PDS 0 stitch . Skin closure was achieved with skin dean. Dressings were applied and the procedure was completed. The patient tolerated the procedure well. There were no immediate complications. Initial and final counts of sponges and instruments were correct. Estimated blood loss was less than 50 cc . The patient was extubated without difficulty and transferred to the recovery room with stable vital signs. s
--- NOTE | 2025-02-13 16:50 | PM.EVENT ---
Event Note Date of Service: 02/13/25 Event Note: Seen postop She had undergone laparotomy, small bowel resection, lysis of adhesions earlier for note of a kink in the small bowel with stricturing, wide band of omentum tethering this loop of small bowel She appears to have adequate pain control currently Does complain of nausea Good urine output on the Payne Stable vital signs Pain management IV fluid Keep NG tube in place for now Discussed with the family Time Spent With Patient Time: Total time managing care of this patient today ____ minutes.
[2025-02-13] MEDS: Parenteral Nutrition 1,320 ML 55 ML IV (20:26)
[2025-02-14] VITALS (9 sets, daily range): BP systolic 113–145; BP diastolic 36–70; PULSE 63–74; RESP 16–18; TEMP 36.3–37; O2SAT 92–94
[2025-02-14 06:13] LABS: Hematocrit 40.8 % (37.0-47.0); Hemoglobin 13.3 g/dl (12.0-16.0); Mean Corpuscular HGB Conc 32.6 g/dl (31.0-35.0); Mean Corpuscular Hemoglobin 30.9 pg (27.0-33.0); Mean Corpuscular Volume 94.9 fL (80.0-98.0); NRBC Abs Auto 0.000 X10*3/uL (0.0-0.012); NRBC Pct Auto 0.0 /100WBC (0.0-0.2); Platelet Count 232 X10*3/uL (160-400); Red Blood Count 4.30 X10*6/uL (4.20-5.50); White Blood Count 12.2 X10*3/uL (4.8-10.8)
[2025-02-14 06:36] LABS: Alanine Aminotransferase 12 U/L (0-31); Albumin Level 3.1 g/dL (3.5-5.0); Alkaline Phosphatase 43 U/L (39-117); Anion Gap 10 (12-20); Aspartate Amino Transferase 25 U/L (5-31); Blood Urea Nitrogen 30 mg/dL (9-16); Calcium 8.1 mg/dL (8.4-10.2); Carbon Dioxide 28 mmol/L (22-29); Chloride 110 mmol/L (96-108); Creatinine Clr Calc Pharmacy 31.5; Estimated Glomerular Filt Rate 60; Magnesium 2.2 mg/dL (1.6-2.6); Potassium 4.0 mmol/L (3.3-5.1); Sodium 144 mmol/L (135-145); Total Protein 4.8 g/dL (6.5-8.0); Triglycerides 63 mg/dL (<150)
--- NOTE | 2025-02-14 08:33 | P.PNGS_ITS ---
Subjective Subjective Date of Service: 02/14/25 <Sabrina Grayson PA-C - Last Filed: 02/14/25 08:38> 02/14/25 <Ze Uriostegui MD - Last Filed: 02/14/25 09:48> Interval history: Feels very sore at incision site this morning and overall weak. Had some nausea last night. Has not passed any flatus. Payne removed early this morning. Has not been OOB yet. <Sabrina Grayson PA-C - Last Filed: 02/14/25 08:38> Physical Exam 2 Vital Signs: Vital Signs: Last Vital Signs Temp 97.4 F 02/14/25 07:32 Pulse 63 02/14/25 07:32 Resp 16 02/14/25 07:32 BP 113/59 L 02/14/25 07:32 Pulse Ox 92 02/14/25 07:32 O2 Del Method Room Air 02/14/25 07:32 O2 Flow Rate 1 02/11/25 10:01 BMI result Body Mass Index 18.2 <Sabrina Grayson PA-C - Last Filed: 02/14/25 08:38> Const: General: comfortable, no acute distress, well developed and alert < FERNIE Rodriguez Last Filed: 02/14/25 08:38> Nutritional Appearance: thin <FERNIE Rodriguez Last Filed: 02/14/25 08:38> Orientation/consciousness: patient oriented x3 <Sabrina Grayson PA-C - Last Filed: 02/14/25 08:38> Resp: Effort & Inspection: normal respiratory effort, able to speak in complete sentences and not tachypneic <Sabrina Grayson PA-C - Last Filed: 02/14/25 08:38> GI: Other: dressing clean and intact abdomen remains distended and tympanitic but soft mild incisional tenderness <FERNIE Rodriguez Last Filed: 02/14/25 08:38> Palpation (GI): no guarding and not rigid <FERNIE Rodriguez Last Filed: 02/14/25 08:38> Skin: General skin exam: no rashes or lesions noted <Sabrina Grayson PA-C - Last Filed: 02/14/25 08:38> Neuro: General: patient oriented x3 and moves all extremities <FERNIE Rodriguez Last Filed: 02/14/25 08:38> Extrem: General: Yes no clubbing, cyanosis or edema <Sabrina Grayson PA-C - Last Filed: 02/14/25 08:38> Objective Data Active Medications Benzocaine (Throat Lozenge, Medicated Lozenge) 1 lozenge MUCOUS MEM Q2H PRN PRN Reason: Sore Throat Last Admin: 02/12/25 18:35 Dose: 1 lozenge Documented By: SHUKRI Heparin Sodium (Porcine) (Heparin Sodium,Porcine 5,000 Unit/Ml Vial) 5,000 unit SUBCUT Q12H [facility] Last Admin: 02/14/25 00:46 Dose: 5,000 unit Documented By: AFTAB Lactated Ringer's (Lr) 1,000 mls @ 100 mls/hr IVCONT .Q10H [facility] Last Admin: 02/13/25 20:19 Dose: Not Given Documented By: MICHAEL Non-Admin Reason: see commments Comments: held for pt to start ppn - per md per previous shift Acetaminophen (Ofirmev) 1,000 mg in 100 mls @ 400 mls/hr IV Q6H PRN PRN Reason: Pain, Mild 1-3,fever,headache Last Infusion: 02/14/25 06:35 Dose: Infused Documented By: AFTAB Nutrition (Parenteral) (Parenteral Nutrition) 1,320 mls @ 55 mls/hr IV .Q24H [facility]; Protocol Stop: 02/14/25 20:59 Last Admin: 02/13/25 20:26 Dose: 55 mls/hr Documented By: MICHAEL Levothyroxine Sodium (Levothyroxine Sodium 25 Mcg Tablet) 25 mcg PO DAILY@0600 [facility] Last Admin: 02/14/25 05:58 Dose: Not Given Documented By: AFTAB Non-Admin Reason: strict NPO Lisinopril (Lisinopril 2.5 Mg Tablet) 2.5 mg PO DAILY [facility]; Protocol Last Admin: 02/14/25 07:56 Dose: Not Given Documented By: TAMI Non-Admin Reason: NPO Morphine Sulfate (Morphine Sulfate 4 Mg/Ml Cartridge) 2 mg IVPUSH Q3H PRN; Protocol PRN Reason: Pain, Severe (Pain Scale 7-10) Last Admin: 02/14/25 00:45 Dose: 2 mg Documented By: AFTAB Ondansetron HCl (Ondansetron Hcl 4 Mg/2 Ml Vial) 4 mg IVPUSH Q6H PRN PRN Reason: Nausea and Vomiting Pharmacy Consult (Consult Rx Parenteral Nutrition Ordering) 1 each MISCELLANE DAILY PRN PRN Reason: Consult order Prochlorperazine Edisylate (Prochlorperazine Edisylate 10 Mg/2 Ml Vial) 5 mg IVPUSH Q6H PRN PRN Reason: Nausea and Vomiting Last Admin: 02/13/25 18:24 Dose: 5 mg Documented By: TAMI Sodium Chloride (0.9 % Sodium Chloride Flush 3 Ml Syringe) 3 ml IVFLUSH [facility] Last Admin: 02/14/25 07:53 Dose: Not Given Documented By: TAMI Non-Admin Reason: IV Running <Sabrina Grayson PA-C - Last Filed: 02/14/25 08:38> Labs CBC & Chem 7: 02/14/25 05:42 02/14/25 05:42 <Sabrina Grayson PA-C - Last Filed: 02/14/25 08:38> Labs: Laboratory Results - last 24 hr 02/13/25 02/14/25 10:40 05:42 MCV 94.9 MCH 30.9 MCHC 32.6 RDW 13.1 Plt Count 232 MPV 10.9 Absolute Nucleated RBC 0.000 Nucleated RBC % (auto) 0.0 Anion Gap 10 L Estim Creat Clear Calc 31.5 Estimated GFR 60 Random Glucose 234 H Calcium 8.1 L D Phosphorus 3.4 2.9 Magnesium 2.2 Total Bilirubin 0.3 AST 25 ALT 12 Alkaline Phosphatase 43 Total Protein 4.8 L Albumin 3.1 L Triglycerides 63 <Sabrina Grayson PA-C - Last Filed: 02/14/25 08:38> Microbiology Microbiology Results: Microbiology 02/11/25 15:52 Urine Culture - Final Urine clean catch - Clean Catch Midstream Klebsiella pneumoniae <Sabrina Grayson PA-C - Last Filed: 02/14/25 08:38> Procedures Date of Service Date of Service: 02/14/25 <Sabrina Grayson PA-C - Last Filed: 02/14/25 08:38> 02/14/25 <Ze Uriostegui MD - Last Filed: 02/14/25 09:48> Progress Note: A&P Assessment and plan (1) Small bowel obstruction: Status: Acute <Sabrina Grayson PA-C - Last Filed: 02/14/25 08:38> Assessment and Plan: Says she normally gets nauseous after anesthesia Pain seems adequately controlled Denies flatus NG tube output significantly much less Looks well clinically Abdomen is soft and benign next Good urine output Labs okay Continue pain management Out of bed to chair Incentive spirometry Keep NG tube in Await full return of GI function Seen and examined independently Okay to DC Payne catheter PPN <Ze Uriostegui MD - Last Filed: 02/14/25 09:48> (2) S/P laparotomy: Status: Acute <Sabrina Grayson PA-C - Last Filed: 02/14/25 08:38> Assessment and Plan: POD #1 s/p exploratory laparotomy, lysis of adhesions, small bowel resection. Found to have high-grade small-bowel obstruction with a kink in the distal small bowel, tethered to broad omental band, with a stricture and extensive adhesions. Overall, doing well post op. NGT output decreased. Her abdomen does remain distended but soft, appropriate post op tenderness with clean dressing. No evidence of GI function, anticipate this will be slow to return with degree of small bowel dilation and resection. Will trend NGT output- hopefully can remove today if output remains low and she has no further nausea. She was encouraged OOB/ambulation and increasing activity today to promote GI function. Will consult PT. Incentive spirometer 10x/hr. Continue PPN. AM labs reviewed- leukocytosis likely reactive. <FERNIE Rodriguez Last Filed: 02/14/25 08:38> Time Spent With Patient Time: Total time managing care of this patient today ____ minutes. <Sabrina Grayson PA-C - Last Filed: 02/14/25 08:38> Quality Stroke Does the patient have a stroke diagnosis?: No <Sabrina Grayson PA-C - Last Filed: 02/14/25 08:38> VTE Prior VTE?: No <Sabrina Grayson PA-C - Last Filed: 02/14/25 08:38> VTE Risk Level:: Surgical - moderate <Sabrina Grayson PA-C - Last Filed: 02/14/25 08:38> VTE Device Contraindication: N/A - Device Ordered <Sabrina Grayson PA-C - Last Filed: 02/14/25 08:38> VTE Drug Contraindication: N/A - Med Ordered <Sabrina Grayson PA-C - Last Filed: 02/14/25 08:38>
--- NOTE | 2025-02-14 09:35 | P.PNIM_ITS ---
Subjective Subjective Date of Service: 02/14/25 Interval History: abd pain at surgical site Physical Exam 2 Vital Signs: Vital Signs: Last Vital Signs Temp 97.4 F 02/14/25 07:32 Pulse 63 02/14/25 07:32 Resp 16 02/14/25 07:32 BP 113/59 L 02/14/25 07:32 Pulse Ox 92 02/14/25 07:32 O2 Del Method Room Air 02/14/25 07:32 O2 Flow Rate 1 02/11/25 10:01 BMI result Body Mass Index 18.2 Const: General: comfortable, no acute distress, well developed and alert N utritional Appearance: thin Orientation/consciousness: patient oriented x3 Resp: Effort & Inspection: normal respiratory effort, able to speak in complete sentences and not tachypneic GI: Other: dressing clean and intact abdomen remains distended and tympanitic but soft mild incisional tenderness Palpation (GI): no guarding and not rigid Skin: General skin exam: no rashes or lesions noted Neuro: General: patient oriented x3 and moves all extremities Extrem: General: Yes no clubbing, cyanosis or edema Objective Data Active Medications Benzocaine (Throat Lozenge, Medicated Lozenge) 1 lozenge MUCOUS MEM Q2H PRN PRN Reason: Sore Throat Last Admin: 02/12/25 18:35 Dose: 1 lozenge Documented By: SHUKRI Heparin Sodium (Porcine) (Heparin Sodium,Porcine 5,000 Unit/Ml Vial) 5,000 unit SUBCUT Q12H [facility] Last Admin: 02/14/25 00:46 Dose: 5,000 unit Documented By: AFTAB Lactated Ringer's (Lr) 1,000 mls @ 100 mls/hr IVCONT .Q10H [facility] Last Admin: 02/13/25 20:19 Dose: Not Given Documented By: MICHAEL Non-Admin Reason: see commments Comments: held for pt to start ppn - per md per previous shift Acetaminophen (Ofirmev) 1,000 mg in 100 mls @ 400 mls/hr IV Q6H PRN PRN Reason: Pain, Mild 1-3,fever,headache Last Infusion: 02/14/25 06:35 Dose: Infused Documented By: AFTAB Nutrition (Parenteral) (Parenteral Nutrition) 1,320 mls @ 55 mls/hr IV .Q24H [facility]; Protocol Stop: 02/14/25 20:59 Last Admin: 02/13/25 20:26 Dose: 55 mls/hr Documented By: MICHAEL Levothyroxine Sodium (Levothyroxine Sodium 25 Mcg Tablet) 25 mcg PO DAILY@0600 [facility] Last Admin: 02/14/25 05:58 Dose: Not Given Documented By: AFTAB Non-Admin Reason: strict NPO Lisinopril (Lisinopril 2.5 Mg Tablet) 2.5 mg PO DAILY [facility]; Protocol Last Admin: 02/14/25 07:56 Dose: Not Given Documented By: TAMI Non-Admin Reason: NPO Morphine Sulfate (Morphine Sulfate 4 Mg/Ml Cartridge) 2 mg IVPUSH Q3H PRN; Protocol PRN Reason: Pain, Severe (Pain Scale 7-10) Last Admin: 02/14/25 00:45 Dose: 2 mg Documented By: AFTAB Ondansetron HCl (Ondansetron Hcl 4 Mg/2 Ml Vial) 4 mg IVPUSH Q6H PRN PRN Reason: Nausea and Vomiting Pharmacy Consult (Consult Rx Parenteral Nutrition Ordering) 1 each MISCELLANE DAILY PRN PRN Reason: Consult order Prochlorperazine Edisylate (Prochlorperazine Edisylate 10 Mg/2 Ml Vial) 5 mg IVPUSH Q6H PRN PRN Reason: Nausea and Vomiting Last Admin: 02/13/25 18:24 Dose: 5 mg Documented By: TAMI Sodium Chloride (0.9 % Sodium Chloride Flush 3 Ml Syringe) [facility] Last Admin: 02/14/25 07:53 Dose: Not Given Documented By: TAMI Non-Admin Reason: IV Running Labs 02/14/25 05:42 02/14/25 05:42 Labs: Laboratory Results - last 24 hr 02/13/25 02/14/25 10:40 05:42 MCV 94.9 MCH 30.9 MCHC 32.6 RDW 13.1 Plt Count 232 MPV 10.9 Absolute Nucleated RBC 0.000 Nucleated RBC % (auto) 0.0 Anion Gap 10 L Estim Creat Clear Calc 31.5 Estimated GFR 60 Random Glucose 234 H Calcium 8.1 L D Phosphorus 3.4 2.9 Magnesium 2.2 Total Bilirubin 0.3 AST 25 ALT 12 Alkaline Phosphatase 43 Total Protein 4.8 L Albumin 3.1 L Triglycerides 63 Microbiology Microbiology Results: Microbiology 02/11/25 15:52 Urine Culture - Final Urine clean catch - Clean Catch Midstream Klebsiella pneumoniae Assessment and Plan (1) Small bowel obstruction: Status: Acute Plan 89F PMH HTN, hypothyroid, gastric bypass, SBO, presented with n/v found to have SBO SBO s/p laparotomy and small bowel resection 02/13/25 on TPN elevated glucose in labs not true hyperglycemia, likely due to lab drawn proximal to TPN HTN lisinopril hypothryoid levothyroxine dvt prophylaxis - hep sq full code Quality Stroke Does the patient have a stroke diagnosis?: No VTE Prior VTE?: No VTE Risk Level:: Surgical - moderate VTE Device Contraindication: N/A - Device Ordered VTE Drug Contraindication: N/A - Med Ordered
--- NOTE | 2025-02-14 10:18 | HO.POSTANES ---
Post Anesthesia Evaluation Post Anesthesia Evaluation Date of Service: 02/14/25 Vital Signs: Vital Signs Temp Pulse Resp BP Pulse Ox O2 Del Method 02/14/25 07:32 97.4 F 63 16 113/59 L 92 Room Air 02/14/25 04:00 97.4 F 67 18 118/56 L 92 Room Air 02/14/25 00:46 115/58 L 02/14/25 00:45 18 Anesthesia: General Endotracheal-GETA Mental Status: Awake Pain Control: Satisfactory (expected pain, being treated ) Nausea/Vomiting: None Hydration: Adequate Anesthesia-Related Issues: No Anes. Related Issues
--- NOTE | 2025-02-14 10:41 | MHC.CLN ---
CONSULT PT REQUIRES PPN FOR NUTRITION SUPPORT R/T PROLONGED NPO STATUS PT IS UNDER WT FOR HT; BMI 18.2 UBW BETWEEN 100-105# PER PT REVIEWED LABS DISCUSSED WITH PHARMACY RECOMMEND ADVANCE PPN TO MAX GOAL: PPN AT 55ML/HR, ADD 65 G LIPIDS. PROVIDES 1323 TOTAL KCALS (28 KCALS/KG), 132G DEXTROSE, 56G PROTEIN (1.2G/KG) REPLETE LYTES NEEDED. RD AVAILABLE VIA TIGER TEXT IF NEEDED OVER WEEKEND.
--- NOTE | 2025-02-14 15:31 | PM.EVENT ---
Event Note Date of Service: 02/14/25 Event Note: Seen on afternoon rounds Was ambulating down the hallway on a walker Looks well Less NG tube output today appears to have good pain control next Abdomen remained soft Keep NG tube in until return of GI function PPN Pain management Time Spent With Patient Time: Total time managing care of this patient today ____ minutes.
[2025-02-14 16:27] LABS: Glucose, Whole Blood 155 mg/dL (60-115)
[2025-02-14] MEDS: Parenteral Nutrition 1,320 ML 55 ML IV (20:51)
[2025-02-14] MEDS: 0.9 % Sodium Chloride Flush 3 ML SYRINGE IVFLUSH (23:01)
[2025-02-15 03:43] VITALS: BP 136/64; PULSE 72; RESP 18; TEMP 36.3; O2SAT 95
[2025-02-15 04:23] VITALS: RESP 18
[2025-02-15 05:34] LABS: Alanine Aminotransferase 9 U/L (0-31); Albumin Level 3.1 g/dL (3.5-5.0); Alkaline Phosphatase 52 U/L (39-117); Anion Gap 11 (12-20); Aspartate Amino Transferase 28 U/L (5-31); Blood Urea Nitrogen 25 mg/dL (9-16); Calcium 8.5 mg/dL (8.4-10.2); Carbon Dioxide 26 mmol/L (22-29); Chloride 109 mmol/L (96-108); Creatinine Clr Calc Pharmacy 41.9; Estimated Glomerular Filt Rate > 60; Magnesium 2.1 mg/dL (1.6-2.6); Potassium 3.9 mmol/L (3.3-5.1); Sodium 142 mmol/L (135-145); Total Protein 5.2 g/dL (6.5-8.0)
[2025-02-15 07:06] VITALS: BP 128/64; PULSE 79; RESP 16; TEMP 36.6; O2SAT 92
--- NOTE | 2025-02-15 08:52 | P.PNIM_ITS ---
Subjective Subjective Date of Service: 02/15/25 Interval History: still with output from ngt, passed some gas, no BM Physical Exam 2 Vital Signs: Vital Signs: Last Vital Signs Temp 98 F 02/15/25 07:06 Pulse 79 02/15/25 07:06 Resp 16 02/15/25 07:06 BP 128/64 02/15/25 07:06 Pulse Ox 92 02/15/25 07:06 O2 Del Method Room Air 02/15/25 07:06 O2 Flow Rate 1 02/11/25 10:01 BMI result Body Mass Index 18.2 Const: General: comfortable, no acute distress, well developed and alert N utritional Appearance: thin Orientation/consciousness: patient oriented x3 Resp: Effort & Inspection: normal respiratory effort, able to speak in complete sentences and not tachypneic GI: Other: dressing clean and intact abdomen remains distended and tympanitic but soft mild incisional tenderness Palpation (GI): no guarding and not rigid Skin: General skin exam: no rashes or lesions noted Neuro: General: patient oriented x3 and moves all extremities Extrem: General: Yes no clubbing, cyanosis or edema Objective Data Active Medications Benzocaine (Throat Lozenge, Medicated Lozenge) 1 lozenge MUCOUS MEM Q2H PRN PRN Reason: Sore Throat Last Admin: 02/12/25 18:35 Dose: 1 lozenge Documented By: SHUKRI Heparin Sodium (Porcine) (Heparin Sodium,Porcine 5,000 Unit/Ml Vial) 5,000 unit SUBCUT Q12H [facility] Last Admin: 02/15/25 00:18 Dose: 5,000 unit Documented By: LOGANASY Lactated Ringer's (Lr) 1,000 mls @ 100 mls/hr IVCONT .Q10H [facility] Last Admin: 02/15/25 00:22 Dose: Not Given Documented By: FAINA Non-Admin Reason: on hold while ppn running Acetaminophen (Ofirmev) 1,000 mg in 100 mls @ 400 mls/hr IV Q6H PRN PRN Reason: Pain, Mild 1-3,fever,headache Last Infusion: 02/14/25 14:23 Dose: Infused Documented By: MOHAMER Nutrition (Parenteral) (Parenteral Nutrition) 1,320 mls @ 55 mls/hr IV .Q24H [facility]; Protocol Stop: 02/15/25 20:59 Last Admin: 02/14/25 20:51 Dose: 55 mls/hr Documented By: FAINA Levothyroxine Sodium (Levothyroxine Sodium 25 Mcg Tablet) 25 mcg PO DAILY@0600 [facility] Last Admin: 02/15/25 05:36 Dose: Not Given Documented By: FAINA Non-Admin Reason: strict NPO Lisinopril (Lisinopril 2.5 Mg Tablet) 2.5 mg PO DAILY [facility]; Protocol Last Admin: 02/15/25 08:11 Dose: Not Given Documented By: ZEN Non-Admin Reason: NPO Morphine Sulfate (Morphine Sulfate 4 Mg/Ml Cartridge) 2 mg IVPUSH Q3H PRN; Protocol PRN Reason: Pain, Severe (Pain Scale 7-10) Last Admin: 02/15/25 08:30 Dose: 2 mg Documented By: ZEN Ondansetron HCl (Ondansetron Hcl 4 Mg/2 Ml Vial) 4 mg IVPUSH Q6H PRN PRN Reason: Nausea and Vomiting Last Admin: 02/15/25 04:20 Dose: 4 mg Documented By: FAINA Pharmacy Consult (Consult Rx Parenteral Nutrition Ordering) 1 each MISCELLANE DAILY PRN PRN Reason: Consult order Prochlorperazine Edisylate (Prochlorperazine Edisylate 10 Mg/2 Ml Vial) 5 mg IVPUSH Q6H PRN PRN Reason: Nausea and Vomiting Last Admin: 02/14/25 14:24 Dose: 5 mg Documented By: TAMI Sodium Chloride (0.9 % Sodium Chloride Flush 3 Ml Syringe) 3 ml IVFLUSH QSHIFT [facility] Last Admin: 02/15/25 08:11 Dose: Not Given Documented By: ZEN Non-Admin Reason: IV Running Labs 02/14/25 05:42 02/15/25 05:02 Labs: Laboratory Results - last 24 hr 02/14/25 02/15/25 16:21 05:02 Anion Gap 11 L Estim Creat Clear Calc 41.9 Estimated GFR > 60 POC Glucose 155 H Random Glucose 130 H Calcium 8.5 Phosphorus 1.7 L Magnesium 2.1 Total Bilirubin 0.4 AST 28 ALT 9 Alkaline Phosphatase 52 Total Protein 5.2 L Albumin 3.1 L Assessment and Plan (1) Small bowel obstruction: Status: Acute Plan 89F PMH HTN, hypothyroid, gastric bypass, SBO, presented with n/v found to have SBO SBO s/p laparotomy and small bowel resection 02/13/25 on TPN HTN lisinopril hypothryoid levothyroxine dvt prophylaxis - hep sq full code Quality Stroke Does the patient have a stroke diagnosis?: No VTE Prior VTE?: No VTE Risk Level:: Surgical - moderate VTE Device Contraindication: N/A - Device Ordered VTE Drug Contraindication: N/A - Med Ordered
--- NOTE | 2025-02-15 09:56 | PM.PNGS ---
Subjective Subjective Date of Service: 02/15/25 Interval history: Patient continues to report incisional pain, denies nausea or vomiting. NG tube in place, producing bilious material. Physical Exam Vital Signs: Vital Signs: Last Vital Signs Temp 98 F 02/15/25 07:06 Pulse 79 02/15/25 07:06 Resp 16 02/15/25 07:06 BP 128/64 02/15/25 07:06 Pulse Ox 92 02/15/25 07:06 O2 Del Method Room Air 02/15/25 07:06 O2 Flow Rate 1 02/11/25 10:01 BMI result Body Mass Index 18.2 Const: General: comfortable, no acute distress, well developed and alert Nutritional Appearance: thin Orientation/consciousness: patient oriented x3 Resp: Effort & Inspection: normal respiratory effort, able to speak in complete sentences and not tachypneic GI: Other: Soft and mildly distended, incision clean and intact, sylwia incisional tenderness. Palpation (GI): no guarding and not rigid Skin: Other: Warm, dry, no rash Neuro: General: patient oriented x3 and moves all extremities Extrem: General: Yes no clubbing, cyanosis or edema Objective Data Active Medications Benzocaine (Throat Lozenge, Medicated Lozenge) 1 lozenge MUCOUS MEM Q2H PRN PRN Reason: Sore Throat Last Admin: 02/12/25 18:35 Dose: 1 lozenge Documented By: SHUKRI Heparin Sodium (Porcine) (Heparin Sodium,Porcine 5,000 Unit/Ml Vial) 5,000 unit SUBCUT Q12H [facility] Last Admin: 02/15/25 00:18 Dose: 5,000 unit Documented By: TUMASY Lactated Ringer's (Lr) 1,000 mls @ 100 mls/hr IVCONT .Q10H [facility] Last Admin: 02/15/25 00:22 Dose: Not Given Documented By: TUMASY Non-Admin Reason: on hold while ppn running Acetaminophen (Ofirmev) 1,000 mg in 100 mls @ 400 mls/hr IV Q6H PRN PRN Reason: Pain, Mild 1-3,fever,headache Last Infusion: 02/14/25 14:23 Dose: Infused Documented By: MOHAMER Nutrition (Parenteral) (Parenteral Nutrition) 1,320 mls @ 55 mls/hr IV .Q24H [facility]; Protocol Stop: 02/15/25 20:59 Last Admin: 02/14/25 20:51 Dose: 55 mls/hr Documented By: FAINA Levothyroxine Sodium (Levothyroxine Sodium 25 Mcg Tablet) 25 mcg PO DAILY@0600 [facility] Last Admin: 02/15/25 05:36 Dose: Not Given Documented By: FAINA Non-Admin Reason: strict NPO Lisinopril (Lisinopril 2.5 Mg Tablet) 2.5 mg PO DAILY [facility]; Protocol Last Admin: 02/15/25 08:11 Dose: Not Given Documented By: ZEN Non-Admin Reason: NPO Morphine Sulfate (Morphine Sulfate 4 Mg/Ml Cartridge) 2 mg IVPUSH Q3H PRN; Protocol PRN Reason: Pain, Severe (Pain Scale 7-10) Last Admin: 02/15/25 08:30 Dose: 2 mg Documented By: ZEN Ondansetron HCl (Ondansetron Hcl 4 Mg/2 Ml Vial) 4 mg IVPUSH Q6H PRN PRN Reason: Nausea and Vomiting Last Admin: 02/15/25 04:20 Dose: 4 mg Documented By: FAINA Pharmacy Consult (Consult Rx Parenteral Nutrition Ordering) 1 each MISCELLANE DAILY PRN PRN Reason: Consult order Prochlorperazine Edisylate (Prochlorperazine Edisylate 10 Mg/2 Ml Vial) 5 mg IVPUSH Q6H PRN PRN Reason: Nausea and Vomiting Last Admin: 02/14/25 14:24 Dose: 5 mg Documented By: TAMI Sodium Chloride (0.9 % Sodium Chloride Flush 3 M[facility]) [facility] Last Admin: 02/15/25 08:11 Dose: Not Given Documented By: ZEN Non-Admin Reason: IV Running Labs 02/14/25 05:42 02/15/25 05:02 Labs: Laboratory Results - last 24 hr 02/14/25 02/15/25 16:21 05:02 Anion Gap 11 L Estim Creat Clear Calc 41.9 Estimated GFR > 60 POC Glucose 155 H Random Glucose 130 H Calcium 8.5 Phosphorus 1.7 L Magnesium 2.1 Total Bilirubin 0.4 AST 28 ALT 9 Alkaline Phosphatase 52 Total Protein 5.2 L Albumin 3.1 L Procedures Date of Service Date of Service: 02/15/25 Progress Note: A&P Assessment and plan (1) Small bowel obstruction: Status: Acute (2) S/P laparotomy: Status: Acute Plan POD #2 s/p exploratory laparotomy, lysis of adhesions, small bowel resection. Found to have high-grade small-bowel obstruction with a kink in the distal small bowel, tethered to broad omental band, with a stricture and extensive adhesions. NG output appears to be decreasing although she continues to have appropriate postoperative tenderness. No flatus or BM yet. Continue NG tube decompression and await return of normal bowel function. Time Spent With Patient Time: Total time managing care of this patient today ____ minutes. Quality Stroke Does the patient have a stroke diagnosis?: No VTE Prior VTE?: No VTE Risk Level:: Surgical - moderate VTE Device Contraindication: N/A - Device Ordered VTE Drug Contraindication: N/A - Med Ordered
[2025-02-15 16:00] VITALS: BP 120/80; PULSE 75; RESP 19; TEMP 36.5; O2SAT 93
[2025-02-15 20:00] VITALS: BP 120/75; PULSE 74; RESP 19; TEMP 36.8; O2SAT 92
[2025-02-15] MEDS: Parenteral Nutrition 1,320 ML 55 ML IV (21:11)
[2025-02-16 03:31] VITALS: BP 122/68; PULSE 70; RESP 16; TEMP 36.7; O2SAT 92
[2025-02-16 04:36] LABS: Alanine Aminotransferase 8 U/L (0-31); Albumin Level 2.8 g/dL (3.5-5.0); Alkaline Phosphatase 62 U/L (39-117); Anion Gap 12 (12-20); Aspartate Amino Transferase 23 U/L (5-31); Blood Urea Nitrogen 23 mg/dL (9-16); Calcium 8.5 mg/dL (8.4-10.2); Carbon Dioxide 28 mmol/L (22-29); Chloride 106 mmol/L (96-108); Creatinine Clr Calc Pharmacy 43.2; Estimated Glomerular Filt Rate > 60; Magnesium 2.0 mg/dL (1.6-2.6); Potassium 3.9 mmol/L (3.3-5.1); Sodium 142 mmol/L (135-145); Total Protein 5.3 g/dL (6.5-8.0)
[2025-02-16 07:41] VITALS: BP 135/78; PULSE 74; RESP 18; TEMP 36.6; O2SAT 90
[2025-02-16] MEDS: 0.9 % Sodium Chloride Flush 3 ML SYRINGE IVFLUSH ×2 (07:43→21:38)
--- NOTE | 2025-02-16 09:10 | PM.PNGS ---
Subjective Subjective Date of Service: 02/16/25 Interval history: 89-year-old female patient presenting with a high-grade bowel obstruction, now POD 3 following laparotomy and small-bowel resection. She reports improved incisional pain, but denies any BM and passed only a small amount of flatus. Physical Exam Vital Signs: Vital Signs: Last Vital Signs Temp 97.8 F 02/16/25 07:41 Pulse 74 02/16/25 07:41 Resp 18 02/16/25 07:41 BP 135/78 02/16/25 07:41 Pulse Ox 90 L 02/16/25 07:41 O2 Del Method Room Air 02/16/25 07:41 O2 Flow Rate 1 02/11/25 10:01 BMI result Body Mass Index 18.2 Const: General: comfortable, no acute distress, well developed and alert Nutritional Appearance: thin Orientation/consciousness: patient oriented x3 Resp: Effort & Inspection: normal respiratory effort, able to speak in complete sentences and not tachypneic GI: Other: Soft and mildly distended, dressings changed and incision found to be clean and intact. Minimal bowel sounds noted. NG tube producing thick bilious material. Palpation (GI): no guarding and not rigid Skin: Other: Warm, dry, no rash Neuro: General: patient oriented x3 and moves all extremities Extrem: General: Yes no clubbing, cyanosis or edema Objective Data Active Medications Benzocaine (Throat Lozenge, Medicated Lozenge) 1 lozenge MUCOUS MEM Q2H PRN PRN Reason: Sore Throat Last Admin: 02/12/25 18:35 Dose: 1 lozenge Documented By: SHUKRI Heparin Sodium (Porcine) (Heparin Sodium,Porcine 5,000 Unit/Ml Vial) 5,000 unit SUBCUT Q12H [facility] Last Admin: 02/15/25 23:57 Dose: 5,000 unit Documented By: JOYRISJovanny Acetaminophen (Ofirmev) 1,000 mg in 100 mls @ 400 mls/hr IV Q6H PRN PRN Reason: Pain, Mild 1-3,fever,headache Last Infusion: 02/15/25 12:39 Dose: Infused Documented By: ZEN Nutrition (Parenteral) (Parenteral Nutrition) 1,320 mls @ 55 mls/hr IV .Q24H [facility]; Protocol Stop: 02/16/25 20:59 Last Admin: 02/15/25 21:11 Dose: 55 mls/hr Documented By: KEVAN Nutrition (Parenteral) (Parenteral Nutrition) 1,320 mls @ 55 mls/hr IV .Q24H [facility]; Protocol Stop: 02/17/25 20:59 Levothyroxine Sodium (Levothyroxine Sodium 25 Mcg Tablet) 25 mcg PO DAILY@0600 [facility] Last Admin: 02/16/25 05:32 Dose: Not Given Documented By: KEVAN Non-Admin Reason: NPO Lisinopril (Lisinopril 2.5 Mg Tablet) 2.5 mg PO DAILY [facility]; Protocol Last Admin: 02/16/25 08:06 Dose: Not Given Documented By: ZEN Non-Admin Reason: NPO Morphine Sulfate (Morphine Sulfate 4 Mg/Ml Cartridge) 2 mg IVPUSH Q3H PRN; Protocol PRN Reason: Pain, Severe (Pain Scale 7-10) Last Admin: 02/16/25 07:43 Dose: 2 mg Documented By: ZEN Morphine Sulfate (Morphine Sulfate 4 Mg/Ml Cartridge) 1 mg IVPUSH Q3H PRN; Protocol PRN Reason: Pain, Moderate(Pain Scale 4-6) Last Admin: 02/15/25 22:32 Dose: 1 mg Documented By: KEVAN Ondansetron HCl (Ondansetron Hcl 4 Mg/2 Ml Vial) 4 mg IVPUSH Q6H PRN PRN Reason: Nausea and Vomiting Last Admin: 02/16/25 02:13 Dose: 4 mg Documented By: KEVAN Pharmacy Consult (Consult Rx Parenteral Nutrition Ordering) 1 each MISCELLANE DAILY PRN PRN Reason: Consult order Prochlorperazine Edisylate (Prochlorperazine Edisylate 10 Mg/2 Ml Vial) 5 mg IVPUSH Q6H PRN PRN Reason: Nausea and Vomiting Last Admin: 02/14/25 14:24 Dose: 5 mg Documented By: TAMI Sodium Chloride (0.9 % Sodium Chloride Flush 3 Ml Syringe) 3 ml IVFLUSH QSHIFT [facility] Last Admin: 02/16/25 07:43 Dose: 3 ml Documented By: ZEN Labs 02/14/25 05:42 02/16/25 03:53 Labs: Laboratory Results - last 24 hr 02/16/25 03:53 Anion Gap 12 Estim Creat Clear Calc 43.2 Estimated GFR > 60 Random Glucose 125 H Calcium 8.5 Phosphorus 2.5 L Magnesium 2.0 Total Bilirubin 0.3 AST 23 ALT 8 Alkaline Phosphatase 62 Total Protein 5.3 L Albumin 2.8 L Procedures Date of Service Date of Service: 02/16/25 Progress Note: A&P Assessment and plan (1) Small bowel obstruction: Status: Acute (2) S/P laparotomy: Status: Acute Plan POD #3 s/p exploratory laparotomy, lysis of adhesions, small bowel resection. Found to have high-grade small-bowel obstruction with a kink in the distal small bowel, tethered to broad omental band, with a stricture and extensive adhesions. Patient has continued NG tube output with only minimal flatus and no BM yet. NG tube not ready for removal. Continue bowel rest until return of bowel function. Time Spent With Patient Time: Total time managing care of this patient today ____ minutes. Quality Stroke Does the patient have a stroke diagnosis?: No VTE Prior VTE?: No VTE Risk Level:: Surgical - moderate VTE Device Contraindication: N/A - Device Ordered VTE Drug Contraindication: N/A - Med Ordered
--- NOTE | 2025-02-16 11:02 | HO.PM.IMPN ---
Subjective Subjective Date of Service: 02/16/25 Interval History: still with output from ngt, passed some gas, no BM Physical Exam Vital Signs: Vital Signs: Last Vital Signs Temp 97.8 F 02/16/25 07:41 Pulse 74 02/16/25 07:41 Resp 18 02/16/25 07:41 BP 135/78 02/16/25 07:41 Pulse Ox 90 L 02/16/25 07:41 O2 Del Method Room Air 02/16/25 07:41 O2 Flow Rate 1 02/11/25 10:01 BMI result Body Mass Index 18.2 Const: General: comfortable, no acute distress, well developed and alert Nutritional Appearance: thin Orientation/consciousness: patient oriented x3 Resp: Effort & Inspection: normal respiratory effort, able to speak in complete sentences and not tachypneic GI: Other: Soft and mildly distended, dressings changed and incision found to be clean and intact. Minimal bowel sounds noted. NG tube producing thick bilious material. Palpation (GI): no guarding and not rigid Skin: Other: Warm, dry, no rash Neuro: General: patient oriented x3 and moves all extremities Extrem: General: Yes no clubbing, cyanosis or edema Objective Data Active Medications Benzocaine (Throat Lozenge, Medicated Lozenge) 1 lozenge MUCOUS MEM Q2H PRN PRN Reason: Sore Throat Last Admin: 02/12/25 18:35 Dose: 1 lozenge Documented By: SHUKRI Heparin Sodium (Porcine) (Heparin Sodium,Porcine 5,000 Unit/Ml Vial) 5,000 unit SUBCUT Q12H [facility] Last Admin: 02/15/25 23:57 Dose: 5,000 unit Documented By: KEVAN Acetaminophen (Ofirmev) 1,000 mg in 100 mls @ 400 mls/hr IV Q6H PRN PRN Reason: Pain, Mild 1-3,fever,headache Last Infusion: 02/15/25 12:39 Dose: Infused Documented By: ZEN Nutrition (Parenteral) (Parenteral Nutrition) 1,320 mls @ 55 mls/hr IV .Q24H [facility]; Protocol Stop: 02/16/25 20:59 Last Admin: 02/15/25 21:11 Dose: 55 mls/hr Documented By: KEVAN Nutrition (Parenteral) (Parenteral Nutrition) 1,320 mls @ 55 mls/hr IV .Q24H [facility]; Protocol Stop: 02/17/25 20:59 Levothyroxine Sodium (Levothyroxine Sodium 25 Mcg Tablet) 25 mcg PO DAILY@0600 [facility] Last Admin: 02/16/25 05:32 Dose: Not Given Documented By: KEVAN Non-Admin Reason: NPO Lisinopril (Lisinopril 2.5 Mg Tablet) 2.5 mg PO DAILY [facility]; Protocol Last Admin: 02/16/25 08:06 Dose: Not Given Documented By: ZEN Non-Admin Reason: NPO Morphine Sulfate (Morphine Sulfate 4 Mg/Ml Cartridge) 2 mg IVPUSH Q3H PRN; Protocol PRN Reason: Pain, Severe (Pain Scale 7-10) Last Admin: 02/16/25 07:43 Dose: 2 mg Documented By: ZEN Morphine Sulfate (Morphine Sulfate 4 Mg/Ml Cartridge) 1 mg IVPUSH Q3H PRN; Protocol PRN Reason: Pain, Moderate(Pain Scale 4-6) Last Admin: 02/15/25 22:32 Dose: 1 mg Documented By: KEVAN Ondansetron HCl (Ondansetron Hcl 4 Mg/2 Ml Vial) 4 mg IVPUSH Q6H PRN PRN Reason: Nausea and Vomiting Last Admin: 02/16/25 02:13 Dose: 4 mg Documented By: KEVAN Pharmacy Consult (Consult Rx Parenteral Nutrition Ordering) 1 each MISCELLANE DAILY PRN PRN Reason: Consult order Prochlorperazine Edisylate (Prochlorperazine Edisylate 10 Mg/2 Ml Vial) 5 mg IVPUSH Q6H PRN PRN Reason: Nausea and Vomiting Last Admin: 02/14/25 14:24 Dose: 5 mg Documented By: TAMI Sodium Chloride (0.9 % Sodium Chloride Flush 3 Ml Syringe) 3 ml IVFLUSH [facility] Last Admin: 02/16/25 07:43 Dose: 3 ml Documented By: ZEN Labs 02/14/25 05:42 02/16/25 03:53 Labs: Laboratory Results - last 24 hr 02/16/25 03:53 Anion Gap 12 Estim Creat Clear Calc 43.2 Estimated GFR > 60 Random Glucose 125 H Calcium 8.5 Phosphorus 2.5 L Magnesium 2.0 Total Bilirubin 0.3 AST 23 ALT 8 Alkaline Phosphatase 62 Total Protein 5.3 L Albumin 2.8 L Assessment and Plan (1) Small bowel obstruction: Status: Acute Plan 89F PMH HTN, hypothyroid, gastric bypass, SBO, presented with n/v found to have SBO SBO s/p laparotomy and small bowel resection 02/13/25 on TPN pain controlled, still with significant output in ngt HTN lisinopril hypothryoid levothyroxine dvt prophylaxis - hep sq full code Quality Stroke Does the patient have a stroke diagnosis?: No VTE Prior VTE?: No VTE Risk Level:: Surgical - moderate VTE Device Contraindication: N/A - Device Ordered VTE Drug Contraindication: N/A - Med Ordered
[2025-02-16 15:53] VITALS: BP 122/60; PULSE 65; RESP 16; TEMP 36.7; O2SAT 93
[2025-02-16 20:00] VITALS: BP 152/74; PULSE 70; RESP 17; TEMP 36.6; O2SAT 92
[2025-02-16] MEDS: Parenteral Nutrition 1,320 ML 55 ML IV (21:38)
[2025-02-17 04:00] VITALS: BP 154/70; PULSE 66; RESP 18; TEMP 36.8; O2SAT 92
[2025-02-17 05:57] LABS: Alanine Aminotransferase 18 U/L (0-31); Albumin Level 2.8 g/dL (3.5-5.0); Alkaline Phosphatase 106 U/L (39-117); Anion Gap 12 (12-20); Aspartate Amino Transferase 35 U/L (5-31); Blood Urea Nitrogen 23 mg/dL (9-16); Calcium 8.8 mg/dL (8.4-10.2); Carbon Dioxide 29 mmol/L (22-29); Chloride 104 mmol/L (96-108); Creatinine Clr Calc Pharmacy 38.5; Estimated Glomerular Filt Rate > 60; Magnesium 2.1 mg/dL (1.6-2.6); Potassium 4.0 mmol/L (3.3-5.1); Sodium 141 mmol/L (135-145); Total Protein 5.5 g/dL (6.5-8.0)
--- NOTE | 2025-02-17 07:44 | P.PNGS_ITS ---
Subjective Subjective Date of Service: 02/18/25 Interval history: NG-tube reported to be 500 overnight The patient does take ice chips She says she says she has has started to pass a lot more flatus overnight Admits to incisional pain Says he still has some nausea Physical Exam 2 Vital Signs: Vital Signs: Last Vital Signs Temp 98.3 F 02/17/25 04:00 Pulse 66 02/17/25 04:00 Resp 18 02/17/25 04:00 BP 154/70 H 02/17/25 04:00 Pulse Ox 92 02/17/25 04:00 O2 Del Method Room Air 02/17/25 04:00 O2 Flow Rate 1 02/11/25 10:01 BMI result Body Mass Index 18.2 Const: Other: NG-tube in place General: comfortable and no acute distress Resp: Effort & Inspection: normal respiratory effort Cardio: Rate: regular rate GI: Other: Midline incision with some drainage Inspection: Yes distended Palpation (GI): Soft to palpation Objective Data Active Medications Benzocaine (Throat Lozenge, Medicated Lozenge) 1 lozenge MUCOUS MEM Q2H PRN PRN Reason: Sore Throat Last Admin: 02/12/25 18:35 Dose: 1 lozenge Documented By: SHUKRI Heparin Sodium (Porcine) (Heparin Sodium,Porcine 5,000 Unit/Ml Vial) 5,000 unit SUBCUT Q12H [facility] Last Admin: 02/16/25 23:38 Dose: 5,000 unit Documented By: MARCELINO Acetaminophen (Ofirmev) 1,000 mg in 100 mls @ 400 mls/hr IV Q6H PRN PRN Reason: Pain, Mild 1-3,fever,headache Last Infusion: 02/16/25 12:54 Dose: Infused Documented By: ZEN Nutrition (Parenteral) (Parenteral Nutrition) 1,320 mls @ 55 mls/hr IV .Q24H [facility]; Protocol Stop: 02/17/25 20:59 Last Admin: 02/16/25 21:38 Dose: 55 mls/hr Documented By: MARCELINO Levothyroxine Sodium (Levothyroxine Sodium 25 Mcg Tablet) 25 mcg PO DAILY@0600 [facility] Last Admin: 02/17/25 05:07 Dose: Not Given Documented By: MARCELINO Non-Admin Reason: NPO Lisinopril (Lisinopril 2.5 Mg Tablet) 2.5 mg PO DAILY [facility]; Protocol Last Admin: 02/16/25 08:06 Dose: Not Given Documented By: ZEN Non-Admin Reason: NPO Morphine Sulfate (Morphine Sulfate 4 Mg/Ml Cartridge) 2 mg IVPUSH Q3H PRN; Protocol PRN Reason: Pain, Severe (Pain Scale 7-10) Last Admin: 02/16/25 07:43 Dose: 2 mg Documented By: ZEN Morphine Sulfate (Morphine Sulfate 4 Mg/Ml Cartridge) 1 mg IVPUSH Q3H PRN; Protocol PRN Reason: Pain, Moderate(Pain Scale 4-6) Last Admin: 02/16/25 23:38 Dose: 1 mg Documented By: MARCELINO Ondansetron HCl (Ondansetron Hcl 4 Mg/2 Ml Vial) 4 mg IVPUSH Q6H PRN PRN Reason: Nausea and Vomiting Last Admin: 02/16/25 18:12 Dose: 4 mg Documented By: YUVAL Pharmacy Consult (Consult Rx Parenteral Nutrition Ordering) 1 each MISCELLANE DAILY PRN PRN Reason: Consult order Prochlorperazine Edisylate (Prochlorperazine Edisylate 10 Mg/2 Ml Vial) 5 mg IVPUSH Q6H PRN PRN Reason: Nausea and Vomiting Last Admin: 02/17/25 05:11 Dose: 5 mg Documented By: MARCELINO Sodium Chloride (0.9 % Sodium Chloride Flush 3 Ml Syringe) [facility] Last Admin: 02/16/25 21:38 Dose: 3 ml Documented By: MARCELINO Labs 02/14/25 05:42 02/18/25 05:32 Labs: Laboratory Results - last 24 hr 02/17/25 05:14 Hold Purple Top SEE NOTE Anion Gap 12 Estim Creat Clear Calc 38.5 Estimated GFR > 60 Random Glucose 133 H Calcium 8.8 Phosphorus 3.6 Magnesium 2.1 Total Bilirubin 0.4 AST 35 H ALT 18 Alkaline Phosphatase 106 Total Protein 5.5 L Albumin 2.8 L Procedures Date of Service Date of Service: 02/18/25 Progress Note: A&P Assessment and plan (1) Small bowel obstruction: Status: Acute Assessment and Plan: Status post laparotomy and small-bowel resection Passing more flatus Monitor NG tube output On PPN Bryan gandhi Two dean released from the incision in view of drainage Dressings changed Out of bed Incentive spirometry Time Spent With Patient Time: Total time managing care of this patient today ____ minutes. Quality Stroke Does the patient have a stroke diagnosis?: No VTE Prior VTE?: No VTE Risk Level:: Surgical - moderate VTE Device Contraindication: N/A - Device Ordered VTE Drug Contraindication: N/A - Med Ordered
[2025-02-17 07:56] VITALS: BP 152/80; PULSE 67; RESP 16; TEMP 36.2; O2SAT 93
[2025-02-17 08:00] VITALS: BP 152/80; PULSE 67; RESP 17; TEMP 36.2; O2SAT 93
[2025-02-17] MEDS: 0.9 % Sodium Chloride Flush 3 ML SYRINGE IVFLUSH ×3 (08:17→22:50)
--- NOTE | 2025-02-17 08:17 | HO.PM.IMPN ---
Subjective Subjective Date of Service: 02/17/25 Interval History: nasuea, pain, passing only gas Physical Exam Vital Signs: Vital Signs: Last Vital Signs Temp 97.2 F 02/17/25 07:56 Pulse 67 02/17/25 07:56 Resp 16 02/17/25 07:56 BP 152/80 H 02/17/25 07:56 Pulse Ox 93 02/17/25 07:56 O2 Del Method Room Air 02/17/25 07:56 O2 Flow Rate 1 02/11/25 10:01 BMI result Body Mass Index 18.2 Const: Other: NG-tube in place General: comfortable and no acute distress Resp: Effort & Inspection: normal respiratory effort Cardio: Rate: regular rate GI: Other: Midline incision with some drainage Inspection: Yes distended Palpation (GI): Soft to palpation Objective Data Active Medications Benzocaine (Throat Lozenge, Medicated Lozenge) 1 lozenge MUCOUS MEM Q2H PRN PRN Reason: Sore Throat Last Admin: 02/12/25 18:35 Dose: 1 lozenge Documented By: SHUKRI Heparin Sodium (Porcine) (Heparin Sodium,Porcine 5,000 Unit/Ml Vial) 5,000 unit SUBCUT Q12H [facility] Last Admin: 02/16/25 23:38 Dose: 5,000 unit Documented By: MARCELINO Acetaminophen (Ofirmev) 1,000 mg in 100 mls @ 400 mls/hr IV Q6H PRN PRN Reason: Pain, Mild 1-3,fever,headache Last Infusion: 02/16/25 12:54 Dose: Infused Documented By: ZEN Nutrition (Parenteral) (Parenteral Nutrition) 1,320 mls @ 55 mls/hr IV .Q24H [facility]; Protocol Stop: 02/17/25 20:59 Last Admin: 02/16/25 21:38 Dose: 55 mls/hr Documented By: MARCELINO Levothyroxine Sodium (Levothyroxine Sodium 25 Mcg Tablet) 25 mcg PO DAILY@0600 [facility] Last Admin: 02/17/25 05:07 Dose: Not Given Documented By: MARCELINO Non-Admin Reason: NPO Lisinopril (Lisinopril 2.5 Mg Tablet) 2.5 mg PO DAILY [facility]; Protocol Last Admin: 02/16/25 08:06 Dose: Not Given Documented By: ZEN Non-Admin Reason: NPO Morphine Sulfate (Morphine Sulfate 4 Mg/Ml Cartridge) 2 mg IVPUSH Q3H PRN; Protocol PRN Reason: Pain, Severe (Pain Scale 7-10) Last Admin: 02/16/25 07:43 Dose: 2 mg Documented By: ZEN Morphine Sulfate (Morphine Sulfate 4 Mg/Ml Cartridge) 1 mg IVPUSH Q3H PRN; Protocol PRN Reason: Pain, Moderate(Pain Scale 4-6) Last Admin: 02/16/25 23:38 Dose: 1 mg Documented By: MARCELINO Ondansetron HCl (Ondansetron Hcl 4 Mg/2 Ml Vial) 4 mg IVPUSH Q6H PRN PRN Reason: Nausea and Vomiting Last Admin: 02/16/25 18:12 Dose: 4 mg Documented By: YUVAL Pharmacy Consult (Consult Rx Parenteral Nutrition Ordering) 1 each MISCELLANE DAILY PRN PRN Reason: Consult order Prochlorperazine Edisylate (Prochlorperazine Edisylate 10 Mg/2 Ml Vial) 5 mg IVPUSH Q6H PRN PRN Reason: Nausea and Vomiting Last Admin: 02/17/25 05:11 Dose: 5 mg Documented By: MARCELINO Sodium Chloride (0.9 % Sodium Chloride Flush 3 Ml Syringe) 3 ml IVFLUSH [facility] Last Admin: 02/16/25 21:38 Dose: 3 ml Documented By: MARCELINO Labs 02/14/25 05:42 02/17/25 05:14 Labs: Laboratory Results - last 24 hr 02/17/25 05:14 Hold Purple Top SEE NOTE Anion Gap 12 Estim Creat Clear Calc 38.5 Estimated GFR > 60 Random Glucose 133 H Calcium 8.8 Phosphorus 3.6 Magnesium 2.1 Total Bilirubin 0.4 AST 35 H ALT 18 Alkaline Phosphatase 106 Total Protein 5.5 L Albumin 2.8 L Assessment and Plan (1) Small bowel obstruction: Status: Acute Plan 89F PMH HTN, hypothyroid, gastric bypass, SBO, presented with n/v found to have SBO SBO s/p laparotomy and small bowel resection 02/13/25 on TPN, midline requested HTN lisinopril hypothryoid levothyroxine dvt prophylaxis - hep sq full code Quality Stroke Does the patient have a stroke diagnosis?: No VTE Prior VTE?: No VTE Risk Level:: Surgical - moderate VTE Device Contraindication: N/A - Device Ordered VTE Drug Contraindication: N/A - Med Ordered
--- NOTE | 2025-02-17 10:16 | MHC.CLN ---
F/U PT CONTINUES NPO AND REQUIRES PPN FOR NUTRITION/HYDRATION. REVIEWED LABS. COMMUNICATED WITH PHARMACY. RECOMMEND CONTINUE PPN AT MAX GOAL: PPN AT 55ML/HR, ADD 65 G LIPIDS. PROVIDES 1323 TOTAL KCALS (28 KCALS/KG), 132G DEXTROSE, 56G PROTEIN (1.2G/KG) REPLETE LYTES NEEDED.
--- NOTE | 2025-02-17 13:14 | PM.EVENT ---
Event Note Date of Service: 02/18/25 Event Note: Seen on afternoon rounds She says she is passing flatus She has been ambulating She says she feels ?okay NG tube output seems to be lower She clinically looks well Abdomen is soft, we will see how NG tube output is overnight Keep NG tube in in the meantime Time Spent With Patient Time: Total time managing care of this patient today ____ minutes.
[2025-02-17 14:59] VITALS: BP 147/73; PULSE 65; RESP 18; TEMP 36.4; O2SAT 94
[2025-02-17 16:06] VITALS: BP 147/73; PULSE 65; O2SAT 94
[2025-02-17 19:04] VITALS: BP 144/67; PULSE 66; RESP 18; TEMP 36.5; O2SAT 93
[2025-02-17] MEDS: Parenteral Nutrition 1,320 ML 55 ML IV (23:00)
[2025-02-18 03:31] VITALS: BP 126/71; PULSE 68; RESP 15; TEMP 36.6; O2SAT 93
[2025-02-18 06:36] LABS: Alanine Aminotransferase 124 U/L (0-31); Albumin Level 2.8 g/dL (3.5-5.0); Alkaline Phosphatase 278 U/L (39-117); Anion Gap 13 (12-20); Aspartate Amino Transferase 146 U/L (5-31); Blood Urea Nitrogen 23 mg/dL (9-16); Calcium 8.6 mg/dL (8.4-10.2); Carbon Dioxide 28 mmol/L (22-29); Chloride 103 mmol/L (96-108); Creatinine Clr Calc Pharmacy 43.2; Estimated Glomerular Filt Rate > 60; Magnesium 2.1 mg/dL (1.6-2.6); Potassium 4.0 mmol/L (3.3-5.1); Sodium 140 mmol/L (135-145); Total Protein 5.4 g/dL (6.5-8.0)
[2025-02-18 07:38] VITALS: BP 163/95; PULSE 70; RESP 16; TEMP 36.6; O2SAT 93
[2025-02-18] MEDS: 0.9 % Sodium Chloride Flush 3 ML SYRINGE IVFLUSH ×2 (07:58→22:31)
--- NOTE | 2025-02-18 08:29 | P.PNGS_ITS ---
Subjective Subjective Date of Service: 02/18/25 <Sabrina Grayson PA-C - Last Filed: 02/18/25 08:34> 02/18/25 <Ze Uriostegui MD - Last Filed: 02/18/25 14:31> Interval history: Feels better this morning. Has begun to pass more consistent flatus, feels less bloated. Still having nausea but also endorses severe nausea/dry heaving after she received general anesthesia in the past. Was OOB and ambulated yesterday. NGT output decreasing. <Sabrina Grayson PA-C - Last Filed: 02/18/25 08:34> Physical Exam 2 Vital Signs: Vital Signs: Last Vital Signs Temp 97.8 F 02/18/25 07:38 Pulse 70 02/18/25 07:38 Resp 16 02/18/25 07:38 BP 163/95 H 02/18/25 07:38 Pulse Ox 93 02/18/25 07:38 O2 Del Method Room Air 02/18/25 07:38 O2 Flow Rate 1 02/11/25 10:01 BMI result Body Mass Index 18.2 <Sabrina Grayson PA-C - Last Filed: 02/18/25 08:34> Const: General: comfortable, no acute distress and alert <FERNIE Rodriguez Last Filed: 02/18/25 08:34> Orientation/consciousness: patient oriented x3 <Sabrina Grayson PA-C - Last Filed: 02/18/25 08:34> Resp: Effort & Inspection: normal respiratory effort and able to speak in complete sentences <Sabrina Grayson PA-C - Last Filed: 02/18/25 08:34> GI: Other: abdomen less distended, soft mild incisional tenderness incision does continue to have purulent, malodorous drainage however no surrounding erythema <FERNIE Rodriguez Last Filed: 02/18/25 08:34> Palpation (GI): Soft to palpation and no guarding <FERNIE Rodriguez Last Filed: 02/18/25 08:34> Skin: General skin exam: no rashes or lesions noted and no jaundice < FERNIE Rodriguez Last Filed: 02/18/25 08:34> Neuro: General: patient oriented x3 and moves all extremities <Sabrina Grayson PA-C - Last Filed: 02/18/25 08:34> Objective Data Active Medications Benzocaine (Throat Lozenge, Medicated Lozenge) 1 lozenge MUCOUS MEM Q2H PRN PRN Reason: Sore Throat Last Admin: 02/12/25 18:35 Dose: 1 lozenge Documented By: SHUKRI Heparin Sodium (Porcine) (Heparin Sodium,Porcine 5,000 Unit/Ml Vial) 5,000 unit SUBCUT Q12H [facility] Last Admin: 02/17/25 23:01 Dose: 5,000 unit Documented By: JOE Acetaminophen (irmev) 1,000 mg in 100 mls @ 400 mls/hr IV Q6H PRN PRN Reason: Pain, Mild 1-3,fever,headache Last Infusion: 02/16/25 12:54 Dose: Infused Documented By: ZEN Nutrition (Parenteral) (Parenteral Nutrition) 1,320 mls @ 55 mls/hr IV .Q24H [facility]; Protocol Stop: 02/18/25 20:59 Last Admin: 02/17/25 23:00 Dose: 55 mls/hr Documented By: JOE Nutrition (Parenteral) (Parenteral Nutrition) 1,320 mls @ 55 mls/hr IV .Q24H [facility]; Protocol Stop: 02/19/25 20:59 Levothyroxine Sodium (Levothyroxine Sodium 25 Mcg Tablet) 25 mcg PO DAILY@0600 [facility] Last Admin: 02/18/25 05:17 Dose: Not Given Documented By: JOE Non-Admin Reason: Patient Condition Contraindication Lisinopril (Lisinopril 2.5 Mg Tablet) 2.5 mg PO DAILY [facility]; Protocol Last Admin: 02/18/25 07:58 Dose: 2.5 mg Documented By: MARY Comments: Ok to give per MD Uriostegui Morphine Sulfate (Morphine Sulfate 4 Mg/Ml Cartridge) 2 mg IVPUSH Q3H PRN; Protocol PRN Reason: Pain, Severe (Pain Scale 7-10) Last Admin: 02/18/25 02:13 Dose: 2 mg Documented By: JOE Morphine Sulfate (Morphine Sulfate 4 Mg/Ml Cartridge) 1 mg IVPUSH Q3H PRN; Protocol PRN Reason: Pain, Moderate(Pain Scale 4-6) Last Admin: 02/17/25 16:34 Dose: 1 mg Documented By: MARY Ondansetron HCl (Ondansetron Hcl 4 Mg/2 Ml Vial) 4 mg IVPUSH Q6H PRN PRN Reason: Nausea and Vomiting Last Admin: 02/16/25 18:12 Dose: 4 mg Documented By: YUVAL Pharmacy Consult (Consult Rx Parenteral Nutrition Ordering) 1 each MISCELLANE DAILY PRN PRN Reason: Consult order Prochlorperazine Edisylate (Prochlorperazine Edisylate 10 Mg/2 Ml Vial) 5 mg IVPUSH Q6H PRN PRN Reason: Nausea and Vomiting Last Admin: 02/18/25 02:12 Dose: 5 mg Documented By: JOE Sodium Chloride (0.9 % Sodium Chloride Flush 3 Ml Syringe) 3 ml IVFLUSH [facility] Last Admin: 02/18/25 07:58 Dose: 3 ml Documented By: MARY <Sabrina Grayson PA-C - Last Filed: 02/18/25 08:34> Labs CBC & Chem 7: 02/14/25 05:42 02/18/25 05:32 <Sabrina Grayson PA-C - Last Filed: 02/18/25 08:34> Labs: Laboratory Results - last 24 hr 02/18/25 05:32 Hold Purple Top SEE NOTE Anion Gap 13 Estim Creat Clear Calc 43.2 Estimated GFR > 60 Random Glucose 112 Calcium 8.6 Phosphorus 3.7 Magnesium 2.1 Total Bilirubin 0.5 AST 146 H ALT 124 H Alkaline Phosphatase 278 H Total Protein 5.4 L Albumin 2.8 L <Sabrina Grayson PA-C - Last Filed: 02/18/25 08:34> Procedures Date of Service Date of Service: 02/18/25 <Sabrina Grayson PA-C - Last Filed: 02/18/25 08:34> 02/18/25 <Ze Uriostegui MD - Last Filed: 02/18/25 14:31> Progress Note: A&P Assessment and plan (1) Small bowel obstruction: Status: Acute <Sabrina Grayson PA-C - Last Filed: 02/18/25 08:34> Assessment and Plan: Patient continues to have good flatus Feels well Ambulating Good pain control Agree with plan as per ANDREA Grayson Seen and examined independently <Ze Uriostegui MD - Last Filed: 02/18/25 14:31> (2) S/P laparotomy: Status: Acute <Sabrina Grayson PA-C - Last Filed: 02/18/25 08:34> Assessment and Plan: Will trial clamp NGT for 4 hrs, check residual. Unclamp sooner if develops worsening abd pain, distention, nausea/vomiting. Hopefully can remove later today if residual is low. Increase activity. Cont PPN. LFTs up this AM, may be secondary to PPN, repeat in AM and monitor. <Sabrina Grayson PA-C - Last Filed: 02/18/25 08:34> Time Spent With Patient Time: Total time managing care of this patient today ____ minutes. <Sabrina Grayson PA-C - Last Filed: 02/18/25 08:34> Quality Stroke Does the patient have a stroke diagnosis?: No <Sabrina Grayson PA-C - Last Filed: 02/18/25 08:34> VTE Prior VTE?: No <Sabrina Grayson PA-C - Last Filed: 02/18/25 08:34> VTE Risk Level:: Surgical - moderate <Sabrina Grayson PA-C - Last Filed: 02/18/25 08:34> VTE Device Contraindication: N/A - Device Ordered <Sabrina Grayson PA-C - Last Filed: 02/18/25 08:34> VTE Drug Contraindication: N/A - Med Ordered <Sabrina Grayson PA-C - Last Filed: 02/18/25 08:34>
--- NOTE | 2025-02-18 09:32 | HO.PM.IMPN ---
Subjective Subjective Date of Service: 02/18/25 Interval History: passing more gas, no bm Physical Exam Vital Signs: Vital Signs: Last Vital Signs Temp 97.8 F 02/18/25 07:38 Pulse 70 02/18/25 07:38 Resp 16 02/18/25 07:38 BP 163/95 H 02/18/25 07:38 Pulse Ox 93 02/18/25 07:38 O2 Del Method Room Air 02/18/25 07:38 O2 Flow Rate 1 02/11/25 10:01 BMI result Body Mass Index 18.2 Const: General: comfortable, no acute distress and alert Orientation/consciousness: patient oriented x3 Resp: Effort & Inspection: normal respiratory effort and able to speak in complete sentences GI: Other: abdomen less distended, soft mild incisional tenderness incision does continue to have purulent, malodorous drainage however no surrounding erythema Palpation (GI): Soft to palpation and no guarding Skin: General skin exam: no rashes or lesions noted and no jaundice Neuro: General: patient oriented x3 and moves all extremities Objective Data Active Medications Benzocaine (Throat Lozenge, Medicated Lozenge) 1 lozenge MUCOUS MEM Q2H PRN PRN Reason: Sore Throat Last Admin: 02/12/25 18:35 Dose: 1 lozenge Documented By: SHUKRI Heparin Sodium (Porcine) (Heparin Sodium,Porcine 5,000 Unit/Ml Vial) 5,000 unit SUBCUT Q12H [facility] Last Admin: 02/17/25 23:01 Dose: 5,000 unit Documented By: JOE Acetaminophen (Ofirmev) 1,000 mg in 100 mls @ 400 mls/hr IV Q6H PRN PRN Reason: Pain, Mild 1-3,fever,headache Last Infusion: 02/16/25 12:54 Dose: Infused Documented By: ZEN Nutrition (Parenteral) (Parenteral Nutrition) 1,320 mls @ 55 mls/hr IV .Q24H [facility]; Protocol Stop: 02/18/25 20:59 Last Admin: 02/17/25 23:00 Dose: 55 mls/hr Documented By: JOE Nutrition (Parenteral) (Parenteral Nutrition) 1,320 mls @ 55 mls/hr IV .Q24H [facility]; Protocol Stop: 02/19/25 20:59 Levothyroxine Sodium (Levothyroxine Sodium 25 Mcg Tablet) 25 mcg PO DAILY@0600 [facility] Last Admin: 02/18/25 05:17 Dose: Not Given Documented By: JOE Non-Admin Reason: Patient Condition Contraindication Lisinopril (Lisinopril 2.5 Mg Tablet) 2.5 mg PO DAILY [facility]; Protocol Last Admin: 02/18/25 07:58 Dose: 2.5 mg Documented By: MARY Comments: Ok to give per MD Uriostegui Morphine Sulfate (Morphine Sulfate 4 Mg/Ml Cartridge) 2 mg IVPUSH Q3H PRN; Protocol PRN Reason: Pain, Severe (Pain Scale 7-10) Last Admin: 02/18/25 02:13 Dose: 2 mg Documented By: JOE Morphine Sulfate (Morphine Sulfate 4 Mg/Ml Cartridge) 1 mg IVPUSH Q3H PRN; Protocol PRN Reason: Pain, Moderate(Pain Scale 4-6) Last Admin: 02/17/25 16:34 Dose: 1 mg Documented By: MARY Ondansetron HCl (Ondansetron Hcl 4 Mg/2 Ml Vial) 4 mg IVPUSH Q6H PRN PRN Reason: Nausea and Vomiting Last Admin: 02/16/25 18:12 Dose: 4 mg Documented By: YUVAL Pharmacy Consult (Consult Rx Parenteral Nutrition Ordering) 1 each MISCELLANE DAILY PRN PRN Reason: Consult order Prochlorperazine Edisylate (Prochlorperazine Edisylate 10 Mg/2 Ml Vial) 5 mg IVPUSH Q6H PRN PRN Reason: Nausea and Vomiting Last Admin: 02/18/25 02:12 Dose: 5 mg Documented By: JOE Sodium Chloride (0.9 % Sodium Chloride Flush 3 Ml Syringe) 3 ml IVFLUSH QSHIFT [facility] Last Admin: 02/18/25 07:58 Dose: 3 ml Documented By: MARY Labs 02/14/25 05:42 02/18/25 05:32 Labs: Laboratory Results - last 24 hr 02/18/25 05:32 Hold Purple Top SEE NOTE Anion Gap 13 Estim Creat Clear Calc 43.2 Estimated GFR > 60 Random Glucose 112 Calcium 8.6 Phosphorus 3.7 Magnesium 2.1 Total Bilirubin 0.5 AST 146 H ALT 124 H Alkaline Phosphatase 278 H Total Protein 5.4 L Albumin 2.8 L Assessment and Plan (1) Small bowel obstruction: Status: Acute Plan 89F PMH HTN, hypothyroid, gastric bypass, SBO, presented with n/v found to have SBO SBO s/p laparotomy and small bowel resection 02/13/25 on TPN, midline requested due to frequent IV malfunctioning HTN lisinopril hypothryoid levothyroxine dvt prophylaxis - hep sq full code Quality Stroke Does the patient have a stroke diagnosis?: No VTE Prior VTE?: No VTE Risk Level:: Surgical - moderate VTE Device Contraindication: N/A - Device Ordered VTE Drug Contraindication: N/A - Med Ordered
--- NOTE | 2025-02-18 09:34 | MHC.CLN ---
F/U PT REMAINS NPO REVIEWED LABS DISCUSSED WITH PHARMACY CONTINUE PPN AT 55ML/HR WITH 65G LIPIDS PROVIDES 1323 TOTAL KCALS (28KCALS/KG), 132G DEXTROSE, 56G PROTEIN (1.2G/KG) REPLETE LYTES NEEDED
--- NOTE | 2025-02-18 11:28 | PM.EVENT ---
Event Note Date of Service: 02/18/25 Event Note: NGT clamped for 4 hrs. Patient reassessed. She continues to feel well without abdominal bloating, nausea or vomiting. She continues to pass flatus. NGT with scant residual. NGT therefore removed. Ok to have clear liquids as tolerated. Time Spent With Patient Time: Total time managing care of this patient today ____ minutes.
--- NOTE | 2025-02-18 14:31 | PM.EVENT ---
Event Note Date of Service: 02/18/25 Event Note: Seen on afternoon rounds Says she feels well Abdomen remains soft NG-tube removed at noon time as residuals were low after clamping She looks well Awaiting midline placement for IV access - IV sites have infiltrated, as per nurse, poor IV access PPN Doing well Okay to have sips of liquids She does admit she has periods of nausea but says that this has how she is after anesthesia Continues to have good flatus Time Spent With Patient Time: Total time managing care of this patient today ____ minutes.
[2025-02-18 16:00] VITALS: BP 133/75; PULSE 75; RESP 19; TEMP 36.3; O2SAT 93
[2025-02-18 20:00] VITALS: BP 160/80; PULSE 67; RESP 19; TEMP 36.8; O2SAT 96
[2025-02-18 21:11] VITALS: RESP 18
[2025-02-18] MEDS: Parenteral Nutrition 1,320 ML 55 ML IV (22:30)
[2025-02-19 03:16] VITALS: BP 145/72; PULSE 62; RESP 18; TEMP 36.8; O2SAT 95
[2025-02-19 06:36] LABS: Alanine Aminotransferase 186 U/L (0-31); Albumin Level 2.8 g/dL (3.5-5.0); Alkaline Phosphatase 324 U/L (39-117); Anion Gap 12 (12-20); Aspartate Amino Transferase 138 U/L (5-31); Blood Urea Nitrogen 18 mg/dL (9-16); Calcium 8.5 mg/dL (8.4-10.2); Carbon Dioxide 26 mmol/L (22-29); Chloride 101 mmol/L (96-108); Creatinine Clr Calc Pharmacy 46.8; Estimated Glomerular Filt Rate > 60; Magnesium 2.1 mg/dL (1.6-2.6); Potassium 3.9 mmol/L (3.3-5.1); Sodium 135 mmol/L (135-145); Total Protein 5.4 g/dL (6.5-8.0)
[2025-02-19 07:44] VITALS: BP 156/73; PULSE 65; RESP 16; TEMP 36.1; O2SAT 96
--- NOTE | 2025-02-19 08:11 | PM.PNGS ---
Subjective Subjective Date of Service: 02/19/25 Interval history: Has had BMs , loose Passing flatus Denies significant pain Says she feels well Physical Exam Vital Signs: Vital Signs: Last Vital Signs Temp 97.0 F 02/19/25 07:44 Pulse 65 02/19/25 07:44 Resp 16 02/19/25 07:44 BP 156/73 H 02/19/25 07:44 Pulse Ox 96 02/19/25 07:44 O2 Del Method Room Air 02/19/25 07:44 O2 Flow Rate 1 02/11/25 10:01 BMI result Body Mass Index 18.2 Const: General: comfortable and no acute distress Resp: Effort & Inspection: normal respiratory effort Cardio: Rate: regular rate GI: Other: Tender and incision, seropurulent drainage from open part of the incision Palpation (GI): Soft to palpation, not firm and no guarding Objective Data Active Medications Acetaminophen (Acetaminophen 325 Mg Tablet) 650 mg PO Q6H PRN PRN Reason: Pain, Mild 1-3,fever,headache Last Admin: 02/19/25 03:32 Dose: 650 mg Documented By: JOE Benzocaine (Throat Lozenge, Medicated Lozenge) 1 lozenge MUCOUS MEM Q2H PRN PRN Reason: Sore Throat Last Admin: 02/12/25 18:35 Dose: 1 lozenge Documented By: SHUKRI Heparin Sodium (Porcine) (Heparin Sodium,Porcine 5,000 Unit/Ml Vial) 5,000 unit SUBCUT Q12H [facility] Last Admin: 02/18/25 23:25 Dose: 5,000 unit Documented By: JOE Nutrition (Parenteral) (Parenteral Nutrition) 1,320 mls @ 55 mls/hr IV .Q24H [facility]; Protocol Stop: 02/19/25 20:59 Last Admin: 02/18/25 22:30 Dose: 55 mls/hr Documented By: JEO Levothyroxine Sodium (Levothyroxine Sodium 25 Mcg Tablet) 25 mcg PO DAILY@0600 [facility] Last Admin: 02/19/25 05:31 Dose: 25 mcg Documented By: JOE Lisinopril (Lisinopril 2.5 Mg Tablet) 2.5 mg PO DAILY [facility]; Protocol Last Admin: 02/18/25 07:58 Dose: 2.5 mg Documented By: MARY Comments: Ok to give per MD Uriostegui Morphine Sulfate (Morphine Sulfate 4 Mg/Ml Cartridge) 2 mg IVPUSH Q3H PRN; Protocol PRN Reason: Pain, Severe (Pain Scale 7-10) Last Admin: 02/18/25 02:13 Dose: 2 mg Documented By: JOE Morphine Sulfate (Morphine Sulfate 4 Mg/Ml Cartridge) 1 mg IVPUSH Q3H PRN; Protocol PRN Reason: Pain, Moderate(Pain Scale 4-6) Last Admin: 02/18/25 21:11 Dose: 1 mg Documented By: JOE Ondansetron HCl (Ondansetron Hcl 4 Mg/2 Ml Vial) 4 mg IVPUSH Q6H PRN PRN Reason: Nausea and Vomiting Last Admin: 02/16/25 18:12 Dose: 4 mg Documented By: YUVAL Pharmacy Consult (Consult Rx Parenteral Nutrition Ordering) 1 each MISCELLANE DAILY PRN PRN Reason: Consult order Prochlorperazine Edisylate (Prochlorperazine Edisylate 10 Mg/2 Ml Vial) 5 mg IVPUSH Q6H PRN PRN Reason: Nausea and Vomiting Last Admin: 02/18/25 02:12 Dose: 5 mg Documented By: JOE Sodium Chloride (0.9 % Sodium Chloride Flush 3 Ml Syringe) 3 ml IVFLUSH [facility] Last Admin: 02/18/25 22:31 Dose: 3 ml Documented By: JOE Labs 02/14/25 05:42 02/19/25 05:47 Labs: Laboratory Results - last 24 hr 02/19/25 05:47 Hold Purple Top SEE NOTE Anion Gap 12 Estim Creat Clear Calc 46.8 Estimated GFR > 60 Random Glucose 135 H Calcium 8.5 Phosphorus 3.2 Magnesium 2.1 Total Bilirubin 0.5 AST 138 H ALT 186 H Alkaline Phosphatase 324 H Total Protein 5.4 L Albumin 2.8 L Procedures Date of Service Date of Service: 02/19/25 Progress Note: A&P Assessment and plan (1) Small bowel obstruction: Status: Acute Assessment and Plan: Status post laparotomy and small-bowel resection Doing well and tolerating clear liquids We will try full liquid diet today Did not have her midline yesterday Peripheral IV infiltrated again but since we will be advancing her diet, we will hold off on midline placement Dressings changed I have expressed seropurulent drainage from the incision - less compared to yesterday This is likely secondary to contamination from enteric contents during surgery No cellulitis Ambulating No fever Lytes okay We will also hold off on PPN for today in view of frequent infiltration with her veins Time Spent With Patient Time: Total time managing care of this patient today ____ minutes. Quality Stroke Does the patient have a stroke diagnosis?: No VTE Prior VTE?: No VTE Risk Level:: Surgical - moderate VTE Device Contraindication: N/A - Device Ordered VTE Drug Contraindication: N/A - Med Ordered
--- NOTE | 2025-02-19 09:01 | PC.NURSE ---
made aware pts IV in left FA infiltrated, site edematous, cool, and pink to touch. Pt has had multiple IV infiltrates in the past 3 days. Warm compress applied. Provider at bedside stating pt needs peripheral access. Multiple tiger texts sent out to attempt US guided IV awaiting reply. Per MD midline not necessary at this time as pts diet is positively progressing and may be off TPN tomorrow.
--- NOTE | 2025-02-19 10:03 | PC.NURSE ---
3 IVs attempted by different RNs, one successful 22R AC. Left FA bruises d/t IV attempts, MD Uriostegui and Lokesh aware. Per Moody via tiger text at 09:57 stop PPN , IVF started per orders. Pt aware and agreeable to plan.
[2025-02-19] MEDS: Lactated Ringers 1,000 ML 60 ML IVCONT (10:18)
--- NOTE | 2025-02-19 10:35 | MHC.CLN ---
F/U DIET RX: FULL LIQUIDS. ADDING ENSURE TID TO PROMOTE NUTRITIONAL INTAKE. SUPPLEMENT PROVIDES 1050 KCALS. 60 G PROTEIN. NG TUBE OUT 02/18. DISCONTINUE PPN 02/19. FOLLOW FOR DIET ADVANCEMENT AND PO INTAKE.
--- NOTE | 2025-02-19 14:07 | PM.EVENT ---
Event Note Date of Service: 02/20/25 Event Note: Seen on afternoon rounds She had a large bowel movement earlier Good pain control Tolerating full liquids so far Abdomen is soft and benign No vomiting Looks well overall Plan to advance diet --she says she we will wait until breakfast tomorrow She says she is planning to go to rehab on discharge Time Spent With Patient Time: Total time managing care of this patient today ____ minutes.
[2025-02-19 14:51] VITALS: PULSE 79; O2SAT 97
--- NOTE | 2025-02-19 15:15 | MHC.CM.PN ---
EMR REVIEWED AND PER MD ROUNDS, PT IS NOT YET MEDICALLY CLEARED FOR DC (SLOWLY ADVANCING DIET) SNF/AR CLINICALLY UPDATED VIA [facility]. CM WILL CONTINUE TO FOLLOW FOR PLAN.
[2025-02-19 15:24] VITALS: BP 115/62; PULSE 69; RESP 18; TEMP 36.3; O2SAT 96
--- NOTE | 2025-02-19 16:44 | HO.PM.IMPN ---
Subjective Subjective Date of Service: 02/19/25 Interval History: tolerating full liquid diet Review of Systems passing bm per staff Review of Systems: Yes all other systems are reviewed and are negative Physical Exam Exam: Exam: Appearance: Alert.? Oriented X3.? cvs: rrr, [id number] , no murmur res: clear to auscultation ,no rhonchii or wheezing abd: abd less distended, Tender and incision, seropurulent drainage from open part of the incision,bs present. ext pulses present , no cyanosis . neuro: axo3 , nonfocal. Vital Signs: Vital Signs: Last Vital Signs Temp 97.3 F 02/19/25 15:24 Pulse 69 02/19/25 15:24 Resp 18 02/19/25 15:24 BP 115/62 02/19/25 15:24 Pulse Ox 96 02/19/25 15:24 O2 Del Method Room Air 02/19/25 15:24 O2 Flow Rate 1 02/11/25 10:01 BMI result Body Mass Index 18.2 Objective Data Active Medications Acetaminophen (Acetaminophen 325 Mg Tablet) 650 mg PO Q6H PRN PRN Reason: Pain, Mild 1-3,fever,headache Last Admin: 02/19/25 03:32 Dose: 650 mg Documented By: JOE Benzocaine (Throat Lozenge, Medicated Lozenge) 1 lozenge MUCOUS MEM Q2H PRN PRN Reason: Sore Throat Last Admin: 02/12/25 18:35 Dose: 1 lozenge Documented By: SHUKRI Heparin Sodium (Porcine) (Heparin Sodium,Porcine 5,000 Unit/Ml Vial) 5,000 unit SUBCUT Q12H [facility] Last Admin: 02/19/25 12:09 Dose: 5,000 unit Documented By: MARY Lactated Ringer's (Lr) 1,000 mls @ 60 mls/hr IVCONT .[id number] [facility] Last Admin: 02/19/25 10:18 Dose: 60 mls/hr Documented By: MARY Levothyroxine Sodium (Levothyroxine Sodium 25 Mcg Tablet) 25 mcg PO DAILY@0600 [facility] Last Admin: 02/19/25 05:31 Dose: 25 mcg Documented By: JOE Lisinopril (Lisinopril 2.5 Mg Tablet) 2.5 mg PO DAILY [facility]; Protocol Last Admin: 02/19/25 08:10 Dose: 2.5 mg Documented By: MARY Morphine Sulfate (Morphine Sulfate 4 Mg/Ml Cartridge) 2 mg IVPUSH Q3H PRN; Protocol PRN Reason: Pain, Severe (Pain Scale 7-10) Last Admin: 02/18/25 02:13 Dose: 2 mg Documented By: JOE Ondansetron HCl (Ondansetron Hcl 4 Mg/2 Ml Vial) 4 mg IVPUSH Q6H PRN PRN Reason: Nausea and Vomiting Last Admin: 02/16/25 18:12 Dose: 4 mg Documented By: YUVAL Oxycodone HCl (Oxycodone Hcl Immed Release 5 Mg Tablet) 5 mg PO Q4H PRN PRN Reason: Pain, Moderate(Pain Scale 4-6) Pharmacy Consult (Consult Rx Parenteral Nutrition Ordering) 1 each MISCELLANE DAILY PRN PRN Reason: Consult order Prochlorperazine Edisylate (Prochlorperazine Edisylate 10 Mg/2 Ml Vial) 5 mg IVPUSH Q6H PRN PRN Reason: Nausea and Vomiting Last Admin: 02/18/25 02:12 Dose: 5 mg Documented By: JOE Sodium Chloride (0.9 % Sodium Chloride Flush 3 Ml Syringe) [facility] Last Admin: 02/19/25 15:40 Dose: Not Given Documented By: MARY Non-Admin Reason: IV Running Labs 02/14/25 05:42 02/19/25 05:47 Labs: Laboratory Results - last 24 hr 02/19/25 05:47 Hold Purple Top SEE NOTE Anion Gap 12 Estim Creat Clear Calc 46.8 Estimated GFR > 60 Random Glucose 135 H Calcium 8.5 Phosphorus 3.2 Magnesium 2.1 Total Bilirubin 0.5 AST 138 H ALT 186 H Alkaline Phosphatase 324 H Total Protein 5.4 L Albumin 2.8 L Assessment and Plan (1) Small bowel obstruction: Status: Acute Assessment and Plan: 89F PMH HTN, hypothyroid, gastric bypass, SBO, presented with n/v found to have SBO SBO s/p laparotomy and small bowel resection 02/13/25 on TPN, midline requested due to frequent IV malfunctioning HTN lisinopril hypothryoid levothyroxine dvt prophylaxis - hep sq full code Quality Stroke Does the patient have a stroke diagnosis?: No VTE Prior VTE?: No VTE Risk Level:: Surgical - moderate VTE Device Contraindication: N/A - Device Ordered VTE Drug Contraindication: N/A - Med Ordered
[2025-02-19 19:38] VITALS: BP 133/79; PULSE 72; RESP 18; TEMP 36.2; O2SAT 95
[2025-02-20] MEDS: Lactated Ringers 1,000 ML 60 ML IVCONT (00:45)
[2025-02-20 03:59] VITALS: BP 144/69; PULSE 66; RESP 18; TEMP 36.3; O2SAT 92
[2025-02-20 06:31] LABS: Alanine Aminotransferase 281 U/L (0-31); Albumin Level 2.6 g/dL (3.5-5.0); Alkaline Phosphatase 367 U/L (39-117); Anion Gap 12 (12-20); Aspartate Amino Transferase 155 U/L (5-31); Blood Urea Nitrogen 14 mg/dL (9-16); Calcium 7.9 mg/dL (8.4-10.2); Carbon Dioxide 25 mmol/L (22-29); Chloride 105 mmol/L (96-108); Creatinine Clr Calc Pharmacy 45.3; Estimated Glomerular Filt Rate > 60; Magnesium 1.9 mg/dL (1.6-2.6); Potassium 3.8 mmol/L (3.3-5.1); Sodium 138 mmol/L (135-145); Total Protein 5.0 g/dL (6.5-8.0)
[2025-02-20] MEDS: Throat Lozenge, Medicated LOZENGE 1 LOZENGE MUCOUS MEM (06:42)
--- NOTE | 2025-02-20 07:34 | PM.PNGS ---
Subjective Subjective Date of Service: 02/20/25 <Sabrina Grayson PA-C - Last Filed: 02/20/25 07:43> 02/20/25 <Ze Uriostegui MD - Last Filed: 02/20/25 08:29> Interval history: Feels fairly well this morning. Had loose stools yesterday. Tolerating full liquids. Has been OOB and ambulating. <Sabrina Grayson PA-C - Last Filed: 02/20/25 07:43> Physical Exam Vital Signs: Vital Signs: Last Vital Signs Temp 97.3 F 02/20/25 03:59 Pulse 66 02/20/25 03:59 Resp 18 02/20/25 03:59 BP 144/69 H 02/20/25 03:59 Pulse Ox 92 02/20/25 03:59 O2 Del Method Room Air 02/20/25 03:59 O2 Flow Rate 1 02/11/25 10:01 BMI result Body Mass Index 18.2 <Sabrina Grayson PA-C - Last Filed: 02/20/25 07:43> Const: General: comfortable, no acute distress and alert <Sabrina Grayson PA-C - Last Filed: 02/20/25 07:43> Orientation/consciousness: patient oriented x3 <Sabrina Grayson PA-C - Last Filed: 02/20/25 07:43> Resp: Effort & Inspection: normal respiratory effort <Sabrina Grayson PA-C - Last Filed: 02/20/25 07:43> GI: Other: incision with some mild erythema surrounding dean at the inferior aspect, continues with seropurulent drainage, more thin this morning mild incisional tenderness <Sabrina Grayson PA-C - Last Filed: 02/20/25 07:43> Palpation (GI): no guarding <FERNIE Rodriguez Last Filed: 02/20/25 07:43> Skin: General skin exam: no rashes or lesions noted <FERNIE Rodriguez Last Filed: 02/20/25 07:43> Neuro: General: patient oriented x3 and moves all extremities <Sabrina Grayson PA-C - Last Filed: 02/20/25 07:43> Objective Data Active Medications Acetaminophen (Acetaminophen 325 Mg Tablet) 650 mg PO Q6H PRN On Hold: 02/20/25 07:25 PRN Reason: Pain, Mild 1-3,fever,headache Last Admin: 02/20/25 03:33 Dose: 650 mg Documented By: FADUMO Benzocaine (Throat Lozenge, Medicated Lozenge) 1 lozenge MUCOUS MEM Q2H PRN PRN Reason: Sore Throat Last Admin: 02/20/25 06:42 Dose: 1 lozenge Documented By: FADUMO Heparin Sodium (Porcine) (Heparin Sodium,Porcine 5,000 Unit/Ml Vial) 5,000 unit SUBCUT Q12H [facility] Last Admin: 02/20/25 00:42 Dose: 5,000 unit Documented By: FADUMO Lactated Ringer's (Lr) 1,000 mls @ 60 mls/hr IVCONT .[id number] [facility] Last Admin: 02/20/25 00:45 Dose: 60 mls/hr Documented By: FADUMO Levothyroxine Sodium (Levothyroxine Sodium 25 Mcg Tablet) 25 mcg PO DAILY@0600 [facility] Last Admin: 02/20/25 05:26 Dose: 25 mcg Documented By: FADUMO Lisinopril (Lisinopril 2.5 Mg Tablet) 2.5 mg PO DAILY [facility]; Protocol Last Admin: 02/19/25 08:10 Dose: 2.5 mg Documented By: MARY Morphine Sulfate (Morphine Sulfate 4 Mg/Ml Cartridge) 2 mg IVPUSH Q3H PRN; Protocol PRN Reason: Pain, Severe (Pain Scale 7-10) Last Admin: 02/18/25 02:13 Dose: 2 mg Documented By: JOE Ondansetron HCl (Ondansetron Hcl 4 Mg/2 Ml Vial) 4 mg IVPUSH Q6H PRN PRN Reason: Nausea and Vomiting Last Admin: 02/19/25 16:45 Dose: 4 mg Documented By: MARY Oxycodone HCl (Oxycodone Hcl Immed Release 5 Mg Tablet) 5 mg PO Q4H PRN PRN Reason: Pain, Moderate(Pain Scale 4-6) Pharmacy Consult (Consult Rx Parenteral Nutrition Ordering) 1 each MISCELLANE DAILY PRN PRN Reason: Consult order Prochlorperazine Edisylate (Prochlorperazine Edisylate 10 Mg/2 Ml Vial) 5 mg IVPUSH Q6H PRN PRN Reason: Nausea and Vomiting Last Admin: 02/19/25 17:21 Dose: 5 mg Documented By: MARY Sodium Chloride (0.9 % Sodium Chloride Flush 3 Ml Syringe) 3 ml IVFLUSH QSHIFT [facility] Last Admin: 02/20/25 07:27 Dose: Not Given Documented By: KATE Non-Admin Reason: IV Running <Sabrina Grayson PA-C - Last Filed: 02/20/25 07:43> Labs CBC & Chem 7: 02/14/25 05:42 02/20/25 05:18 <Sabrina Grayson PA-C - Last Filed: 02/20/25 07:43> Labs: Laboratory Results - last 24 hr 02/20/25 05:18 Anion Gap 12 Estim Creat Clear Calc 45.3 Estimated GFR > 60 Random Glucose 96 Calcium 7.9 L D Phosphorus 2.9 Magnesium 1.9 Total Bilirubin 0.5 AST 155 H ALT 281 H Alkaline Phosphatase 367 H Total Protein 5.0 L Albumin 2.6 L <Sabrina Grayson PA-C - Last Filed: 02/20/25 07:43> Procedures Date of Service Date of Service: 02/20/25 <Sabrina Grayson PA-C - Last Filed: 02/20/25 07:43> 02/20/25 <Ze Uriostegui MD - Last Filed: 02/20/25 08:29> Progress Note: A&P Assessment and plan (1) S/P laparotomy: Status: Acute <Sabrina Grayson PA-C - Last Filed: 02/20/25 07:43> Assessment and Plan: Feels well this morning Tolerating full liquids Has had BMs and passing flatus Abdomen is soft Incision healing, with seropurulent drainage although less She has been ambulating Diet as tolerated Possible DC to half-way tomorrow Seen and examined independently <Ze Uriostegui MD - Last Filed: 02/20/25 08:29> (2) Small bowel obstruction: Status: Acute <Sabrina Grayson PA-C - Last Filed: 02/20/25 07:43> Assessment and Plan: Abd benign, mild incisional tenderness Incisional drainage becoming more thin, will start on oral abx given erythema now Solid diet as tolerated, small meals for now Cont OOB/ambulation Likely ready for transfer to [facility] tomorrow <Sabrina Grayson PA-C - Last Filed: 02/20/25 07:43> Time Spent With Patient Time: Total time managing care of this patient today ____ minutes. <Sabrina Grayson PA-C - Last Filed: 02/20/25 07:43> Quality Stroke Does the patient have a stroke diagnosis?: No <Sabrina Grayson PA-C - Last Filed: 02/20/25 07:43> VTE Prior VTE?: No <Sabrina Grayson PA-C - Last Filed: 02/20/25 07:43> VTE Risk Level:: Surgical - moderate <FERNIE Rodriguez Last Filed: 02/20/25 07:43> VTE Device Contraindication: N/A - Device Ordered <Sabrina Grayson PA-C - Last Filed: 02/20/25 07:43> VTE Drug Contraindication: N/A - Med Ordered <Sabrina Grayson PA-C - Last Filed: 02/20/25 07:43>
[2025-02-20 07:43] VITALS: BP 155/82; PULSE 65; RESP 18; TEMP 36.6; O2SAT 96
[2025-02-20 08:31] VITALS: BP 155/82
[2025-02-20 09:31] LABS: HBS Num1 0.00 mIU/mL (0-7.99); HBc Num1 0.16 S/CO (0.00-0.79); HBsAGNum1 0.26 S/CO (0.00-0.99); Hepatitis A Antibody IgM 0.18 Index (0-0.79); Hepatitis B Surface Antigen Negative (Negative); ~HepC Num1 0.09 S/CO (0.00-0.79); ~Hepatitis A Antibody IgM Nonreactive (Nonreactive); ~Hepatitis B Surface Antibody NONREACTIVE (Nonreactive); ~Hepatitis C Antibody Nonreactive (Nonreactive)
--- NOTE | 2025-02-20 14:21 | MHC.CM.PN ---
CM MET WITH PT IN REGARDS TO BED OFFERS AND PT CHOOSES [facility]. CM WILL CONTINUE TO FOLLOW FOR ANY CHANGE TO DC PLAN.
[2025-02-20 15:28] VITALS: BP 126/68; PULSE 70; RESP 18; TEMP 36.8; O2SAT 94
--- NOTE | 2025-02-20 15:54 | PM.EVENT ---
Event Note Date of Service: 02/20/25 Event Note: Seen on afternoon rounds earlier She continues to feel well Tolerating diet Passing flatus well Has BMs Abdomen is soft and benign She feels she will be ready to be transferred to rehab tomorrow Family updated Time Spent With Patient Time: Total time managing care of this patient today ____ minutes.
[2025-02-20] MEDS: 0.9 % Sodium Chloride Flush 3 ML SYRINGE IVFLUSH ×2 (17:46→23:38)
[2025-02-20 20:00] VITALS: BP 137/67; PULSE 70; RESP 19; TEMP 36.8; O2SAT 95
[2025-02-21 03:00] VITALS: BP 142/71; PULSE 70; RESP 18; TEMP 36.8; O2SAT 95
--- NOTE | 2025-02-21 04:18 | PC.NURSE ---
patient got up to use the bathroom and her dressing to abdomen was soiled and had marrufo/yellow drainage leaking from underneath as well as some odor to it. incision had a little leaking when old dressing removed. incision cleansed and new dressing applied.
[2025-02-21 06:20] LABS: Alanine Aminotransferase 216 U/L (0-31); Albumin Level 2.9 g/dL (3.5-5.0); Alkaline Phosphatase 352 U/L (39-117); Anion Gap 12 (12-20); Aspartate Amino Transferase 77 U/L (5-31); Blood Urea Nitrogen 12 mg/dL (9-16); Calcium 8.2 mg/dL (8.4-10.2); Carbon Dioxide 25 mmol/L (22-29); Chloride 106 mmol/L (96-108); Creatinine Clr Calc Pharmacy 44.6; Estimated Glomerular Filt Rate > 60; Magnesium 2.0 mg/dL (1.6-2.6); Potassium 4.0 mmol/L (3.3-5.1); Sodium 139 mmol/L (135-145); Total Protein 5.5 g/dL (6.5-8.0)
[2025-02-21 07:58] VITALS: BP 138/73; PULSE 65; RESP 12; TEMP 36.7; O2SAT 95
[2025-02-21 08:27] VITALS: BP 138/73
[2025-02-21] MEDS: 0.9 % Sodium Chloride Flush 3 ML SYRINGE IVFLUSH (08:27)
--- NOTE | 2025-02-21 08:41 | PM.PNGS ---
Subjective Subjective Date of Service: 02/21/25 <Sabrina Grayson PA-C - Last Filed: 02/21/25 08:46> 02/21/25 <Ze Uriostegui MD - Last Filed: 02/21/25 10:37> Interval history: Had some nausea last night but denies this morning. Tolerated solid diet but oral intake remains less. She is drinking water. OOB and ambulating. Taking ibuprofen for pain. Passing flatus and moving bowels. <Sabrina Grayson PA-C - Last Filed: 02/21/25 08:46> Physical Exam Vital Signs: Vital Signs: Last Vital Signs Temp 98.1 F 02/21/25 07:58 Pulse 65 02/21/25 07:58 Resp 12 02/21/25 07:58 BP 138/73 02/21/25 08:27 Pulse Ox 95 02/21/25 07:58 O2 Del Method Room Air 02/21/25 07:58 O2 Flow Rate 1 02/11/25 10:01 BMI result Body Mass Index 18.2 <Sabrina Grayson PA-C - Last Filed: 02/21/25 08:46> Const: General: comfortable, no acute distress and alert <FERNIE Rodriguez Last Filed: 02/21/25 08:46> Orientation/consciousness: patient oriented x3 <FERNIE Rodriguez Last Filed: 02/21/25 08:46> Resp: Effort & Inspection: normal respiratory effort <Sabrina Grayson PA-C - Last Filed: 02/21/25 08:46> GI: Other: incision with mild erythema inferiorly, continues with thin seropurulent drainage less distended, very mild incisional tenderness <FERNIE Rodriguez Last Filed: 02/21/25 08:46> Skin: General skin exam: no rashes or lesions noted <FERNIE Rodriguez Last Filed: 02/21/25 08:46> Neuro: General: patient oriented x3 and moves all extremities <FERNIE Rodriguez Last Filed: 02/21/25 08:46> Objective Data Active Medications Acetaminophen (Acetaminophen 325 Mg Tablet) 650 mg PO Q6H PRN On Hold: 02/20/25 07:25 PRN Reason: Pain, Mild 1-3,fever,headache Last Admin: 02/20/25 03:33 Dose: 650 mg Documented By: FADUMO Amoxicillin/Clavulanate Potassium (Amoxicillin/Potassium Clav 875 Mg Tablet) 875 mg PO Q12H [facility] Last Admin: 02/21/25 08:27 Dose: 875 mg Documented By: KATE Benzocaine (Throat Lozenge, Medicated Lozenge) 1 lozenge MUCOUS MEM Q2H PRN PRN Reason: Sore Throat Last Admin: 02/20/25 06:42 Dose: 1 lozenge Documented By: FADUMO Heparin Sodium (Porcine) (Heparin Sodium,Porcine 5,000 Unit/Ml Vial) 5,000 unit SUBCUT Q12H [facility] Last Admin: 02/20/25 23:36 Dose: 5,000 unit Documented By: FADUMO Levothyroxine Sodium (Levothyroxine Sodium 25 Mcg Tablet) 25 mcg PO DAILY@0600 [facility] Last Admin: 02/21/25 05:42 Dose: 25 mcg Documented By: FADUMO Lisinopril (Lisinopril 2.5 Mg Tablet) 2.5 mg PO DAILY [facility]; Protocol Last Admin: 02/21/25 08:27 Dose: 2.5 mg Documented By: KATE Morphine Sulfate (Morphine Sulfate 4 Mg/Ml Cartridge) 2 mg IVPUSH Q3H PRN; Protocol PRN Reason: Pain, Severe (Pain Scale 7-10) Last Admin: 02/18/25 02:13 Dose: 2 mg Documented By: JOE Ondansetron HCl (Ondansetron Hcl 4 Mg/2 Ml Vial) 4 mg IVPUSH Q6H PRN PRN Reason: Nausea and Vomiting Last Admin: 02/19/25 16:45 Dose: 4 mg Documented By: MARY Oxycodone HCl (Oxycodone Hcl Immed Release 5 Mg Tablet) 5 mg PO Q4H PRN PRN Reason: Pain, Moderate(Pain Scale 4-6) Pharmacy Consult (Consult Rx Parenteral Nutrition Ordering) 1 each MISCELLANE DAILY PRN PRN Reason: Consult order Prochlorperazine Edisylate (Prochlorperazine Edisylate 10 Mg/2 Ml Vial) 5 mg IVPUSH Q6H PRN PRN Reason: Nausea and Vomiting Last Admin: 02/20/25 17:44 Dose: 5 mg Documented By: JORJE Sodium Chloride (0.9 % Sodium Chloride Flush 3 Ml Syringe) 3 ml IVFLUSH QSHIFT [facility] Last Admin: 02/21/25 08:27 Dose: 3 ml Documented By: KATE <Sabrina Grayson PA-C - Last Filed: 02/21/25 08:46> Labs CBC & Chem 7: 02/14/25 05:42 02/21/25 05:34 <Sabrina Grayson PA-C - Last Filed: 02/21/25 08:46> Labs: Laboratory Results - last 24 hr 02/20/25 02/21/25 07:48 05:34 Hold Purple Top SEE NOTE Anion Gap 12 Estim Creat Clear Calc 44.6 Estimated GFR > 60 Random Glucose 101 Calcium 8.2 L Phosphorus 3.1 Magnesium 2.0 Total Bilirubin 0.5 AST 77 H ALT 216 H Alkaline Phosphatase 352 H Total Protein 5.5 L Albumin 2.9 L Hepatitis A IgM Ab Nonreactive Hep Bs Antigen Negative Hep Bs Antibody NONREACTIVE Hep B Core Total Ab Nonreactive Hepatitis C Ab (EIA) Nonreactive <Sabrina Grayson PA-C - Last Filed: 02/21/25 08:46> Procedures Date of Service Date of Service: 02/21/25 <Sabrina Grayson PA-C - Last Filed: 02/21/25 08:46> 02/21/25 <Ze Uriostegui MD - Last Filed: 02/21/25 10:37> Progress Note: A&P Assessment and plan (1) S/P laparotomy: Status: Acute <Sabrina Grayson PA-C - Last Filed: 02/21/25 08:46> Assessment and Plan: Occasional nausea but otherwise tolerating diet well He had BMs and flatus abdomen remains soft and benign Stable vital signs No fever Still has some seropurulent drainage from the incision with likely subcutaneous fat necrosis She had contamination from spillage of enteric contents Okay to DC to rehab Dressing changes b.i.d. On oral antibiotics We will see next week in the office Seen and examined independently Family updated <Ze Uriostegui MD - Last Filed: 02/21/25 10:37> (2) Small bowel obstruction: Status: Acute <Sabrina Grayson PA-C - Last Filed: 02/21/25 08:46> Assessment and Plan: Clinically appearing well this morning. Abd soft, less distended, incision does have some erythema inferiorly and continues with seropurulent drainage, AUgmentin initiated yesterday. Overall, she feels ready for transfer to [facility] when bed available. Will discuss with case managements. Continue short course of Augmentin. BID dry dressing changes. F/u in 1 week in the office. Patient comfortable with plan. <Sabrina Grayson PA-C - Last Filed: 02/21/25 08:46> Time Spent With Patient Time: Total time managing care of this patient today ____ minutes. <Sabrina Grayson PA-C - Last Filed: 02/21/25 08:46> Quality Stroke Does the patient have a stroke diagnosis?: No <Sabrina Grayson PA-C - Last Filed: 02/21/25 08:46> VTE Prior VTE?: No <Sabrina Grayson PA-C - Last Filed: 02/21/25 08:46> VTE Risk Level:: Surgical - moderate <Sabrina Grayson PA-C - Last Filed: 02/21/25 08:46> VTE Device Contraindication: N/A - Device Ordered <Sabrina Grayson PA-C - Last Filed: 02/21/25 08:46> VTE Drug Contraindication: N/A - Med Ordered <Sabrina Grayson PA-C - Last Filed: 02/21/25 08:46>
--- NOTE | 2025-02-21 09:44 | P.DS_ITS ---
DS: Providers Provider Date of Service: 02/21/25 Date of admission: 02/11/25 11:32 Date of discharge: 02/21/25 Primary care physician: Nonstaff Physician Attending physician on admission: Ze Uriostegui Consults: 02/11/25 11:34 Consult to Hospitalist Routine Comment: Consulting Provider: [facility] Reason For Exam: medical management Attending physician on discharge: Ze Uriostegui DS: Diagnosis Discharge Diagnosis (1) S/P laparotomy: Status: Acute (2) Small bowel obstruction: Status: Acute DS: Summary Hospital Course Hospital Course: HPI AT ADMISSION: Aziza Freeman is a 89 year old female with PMH of hypertension, hypothyroidism who presented to the ED with complaints of abdominal pain and vomiting. She reports she was attending a [facility] in [place] with her daughter over the weekend and she developed severe diffuse abdominal pain associated with nausea and vomiting on Monday. She was unable to make her flight home to [place] that day and came back to her daughters home with her. She had continued nausea and vomiting and abd pain into Monday. She has a surgical history significant for a gastric bypass (15yrs ago), hysterectomy, hx of SBO requiring laparotomy and enterolysis. Her family urged her to be evaluated in the ED. Work up in the ED included CBC, BMP, LFTs which was significant for an elevated BUN. CT scan abd pelvis was obtained which showed dilatation of proximal and mid small bowel loops with distal small bowel loops are collapsed, probable transition point in the midabdomen where there is an abrupt change in caliber and tethering of small bowel loops. She has air distally in the colon on my review. She reports feeling improved with no abdominal pain. She did just receive analgesics. She has not passed flatus at all and her last BM was Monday which is abnormal for her. Last emesis was Monday morning. HOSPITAL COURSE: She was admitted to the surgical service for further treatment of the SBO. She was clinically appearing well and her abdomen was distended but soft and overall benign and therefore continuing nonoperative measures was recommended. NGT was inserted for decompression. Hospitalist service was consulted for management of medical comorbidities. She remained distended without evidence of Gi function and therefore SBFT was obtained which showed no progression of contrast past the site of obstruction. She remained distended without sigificant GI function. It was therefore recommended to proceed with laparotomy. On 02/13/25, exploratory laparotomy with lysis of adhesions and small bowel resection was performed by Dr. Uriostegui without complication. She was found to have a high grade small bowel obstruction with a kink in the distal small bowel, tethered to broad omental band, with a stricture and extensive adhesions. She tolerated the procedure well. She had a lengthy but uncomplicated recovery course which was anticipated in view of her markedly dilated small bowel loops secondary to the obstruction. She was started on peripheral nutrition while awaiting GI function. Her activity was increased and PT was consulted. Her NGT output slowly decreased and she began to pass more consistent flatus. Her NGT was clamped and had low residual and she remained asymptomatic and it was therefore removed on POD #5. Her diet was gradually advanced following as tolerated. Her incisional pain gradually improved. She did develop some drainage from her incision site and a couple dean were removed and the wound was probed with evacuation of purulent drainage. This was thought to be secondary to contamination from enteric contents during the surgery in view of her significantly dilated bowel loops f rom the obstruction. This has tapered off and become more seropurulent. She did develop some incisional erythema at the distal half and was started on Augmentin. On the day of discharge, she was tolerating a solid diet with some mild nausea. Her pain was mild and well controlled. She had good GI function. She began to ambulate without her walker. Her abdomen was benign with some incisional erythema and seropurulent drainage but decreasing. She was hemodynamically stable. She felt ready for discharge and was transferred to [facility] on 02/21/25 in stable condition. Status at Discharge Functional status at discharge: independent ambulation Overall status at discharge: patient is progressing back to baseline Time Attestation Discharge Coordination Time (in mins): 45 Quality: Safe Use of Opioids Does Pt have an Active Cancer Diagnosis on the Problem List?: No Quality: Stroke Does the patient have a stroke diagnosis?: No Physical Exam Vital Signs: Vital Signs: Last Vital Signs Temp 98.1 F 02/21/25 07:58 Pulse 65 02/21/25 07:58 Resp 12 02/21/25 07:58 BP 138/73 02/21/25 08:27 Pulse Ox 95 02/21/25 07:58 O2 Del Method Room Air 02/21/25 07:58 O2 Flow Rate 1 02/11/25 10:01 BMI result Body Mass Index 18.2 Const: General: comfortable, no acute distress and alert Orientation/consciousness: patient oriented x3 Resp: Effort & Inspection: normal respiratory effort and able to speak in complete sentences GI: Other: soft, very mildly distended but improved mild incisional tenderness midline incision with dean intact, some removed to allow for drainage, erythema of inferior aspect, some seropurulent drainage Palpation (GI): no guarding and not rigid Skin: General skin exam: no rashes or lesions noted Neuro: General: patient oriented x3 and moves all extremities DS: Data Data Completed and Pending Completed studies during hospitalization [Text1]: 02/13/25 14:12 Surgical [PTH] Routine Small bowel, segmental resection: -Small bowel with serositis and mesenteritis with marked fibrous adhesions, stricture and luminal stenosis. -Active enteritis, hemorrhage, and focal mural necrosis, consistent with ischemia. -Margins appear viable. -Attached congested omental adipose. -No evidence of malignancy. Labs on day of discharge: Laboratory Results - last 24 hr 02/20/25 02/21/25 07:48 05:34 Hold Purple Top SEE NOTE Sodium 139 Potassium 4.0 Chloride 106 Carbon Dioxide 25 Anion Gap 12 BUN 12 Creatinine 0.63 Estim Creat Clear Calc 44.6 Estimated GFR > 60 Random Glucose 101 Calcium 8.2 L Phosphorus 3.1 Magnesium 2.0 Total Bilirubin 0.5 AST 77 H ALT 216 H Alkaline Phosphatase 352 H Total Protein 5.5 L Albumin 2.9 L Hepatitis A IgM Ab Nonreactive Hep Bs Antigen Negative Hep Bs Antibody NONREACTIVE Hep B Core Total Ab Nonreactive Hepatitis C Ab (EIA) Nonreactive Discharge Plan Discharge Anticipated Discharge Date/Time: 02/21/25 10:07 Patient Disposition: Xfer SNF Discharge Diagnosis: SBO, s/p laparotomy and small bowel resection Referrals: [facility] [Outside] - 1 Week Referral Note: TRANSFER FOR SHORT TERM REHAB Physician,Nonstaff [Primary Care Provider, Medical] - 1 Week Ze Uriostegui MD [Physician, General Surgery] - 1 Week Discharge Medications: New oxycodone 5 mg tablet 5 mg PO Q4H PRN (Reason: pain (scale score 7-10)) Qty: 20 0RF Rx Instructions: Partial Fill upon patient request. amoxicillin-pot clavulanate 875-125 mg tablet 1 tab PO Q12H Qty: 10 0RF ondansetron HCl 8 mg tablet 8 mg PO Q8H PRN (Reason: nausea and vomiting) Qty: 20 0RF Continued levothyroxine 25 mcg tablet 25 mcg PO DAILY@0600 estradiol 0.5 mg tablet 0.25 mg PO DAILY lisinopril 2.5 mg tablet 2.5 mg PO DAILY Discharge Orders: Discharge Order (Routine); Ordered 02/21/25 Ordered By: Sabrina Grayson Diet: Advance to usual diet Activity on Discharge: No heavy lifting Stand Alone Forms: Patient Portal Discharge page Print Language: Arabic Activity Restrictions/Additional Instructions: If the incision area is tender, you may apply an ice pack for short intervals (No more than 20 minutes on, followed by at least 20 minutes off). Do not apply heat. Do not use creams, lotions, or topical antibiotics. These can cause infection or allergic reaction. Ok to shower, no tub bath. There is some seropurulent drainage from the inferior portion. BID and PRN dry dressing changes to the incision site. Remainder of dean closing your incision will be removed approximately 10-14 days after surgery. NO HEAVY LIFTING (>10lbs) or strenuous activity. Follow up in office in 1 week. ([phone]) Call Your Doctor If: -Your temperature exceeds 101.5? F -You experience excessive pain or swelling -You have an unexpected reaction to medication -You have excessive bleeding -You experience continued vomiting/nausea -Your incision begins to separate -Your incision shows signs of infection such as increased redness, swelling, excessive pain, drainage (light blood or clear fluid is normal) or heat Care Plan Goals: Return to baseline health and resume normal activities following recovery period. Health Concerns: SBO HTN Plan of Treatment: s/p laparotomy, small bowel resection bowel rest, advancement as diet as tolerated Follow up in the office in 1-2 weeks Follow up with PCP Assessment: Doing well post op.
--- NOTE | 2025-02-21 09:56 | MHC.CM.PN ---
DP: PT HAS BEEN MEDICALLY CLEARED FOR DC TO STR AT [facility]. BLS TRANSPORT BOOKED FOR 11:30 AM [facility]IA [facility]. RN UPDATED AND DAUGHTER SUSIE NOTIFIED. FINAL IMM ISSUED.
[2025-02-21 11:31] VITALS: BP 110/59; PULSE 78; RESP 13; TEMP 36.8; O2SAT 95
== END 2025-02-21 11:46 | disposition skilled nursing facility (03) | DRG 331 ==
LOC: HO.ED 09:51 → HO.EDOVER 12:20 → HO.S3 19:19
PROVIDERS: Internal Medicine; Physician Assistant Medical; Surgery; Admitting Provider Physician Assistant Surgical; Emergency Provider Emergency Medicine; Visit Provider Physician Assistant Surgical
PROC: 0DB80ZZ Excision of Small Intestine, Open Approach (ICD-10-PCS; CPT 49000; principal; 2025-02-13 13:00)
DX: K56.50 Intestinal adhesions [bands], unspecified as to partial versus complete obstruction (principal); G89.18 Other acute postprocedural pain; E03.9 Hypothyroidism, unspecified; I10 Essential (primary) hypertension; Z79.890 Hormone replacement therapy; Z79.899 Other long term (current) drug therapy
CPT/HCPCS: 36415; 71045; 74018; 74177; 74250; 80048; 80053; 80076; 81001; 82947; 83690; 83735; 84100; 84478; 84484; 85025; 85027; 86704; 86706; 86709; 86803; 86850; 86900; 86901; 87086; 87088; 87186; 87340; 88307; 93005; 97162; 97530; 99285; J0131; J0330; J0690; J0737; J1100; J1171; J1644; J1920; J2003; J2270; J2405; J2704; J2795; J3010; J7120; Q9967

== ENCOUNTER → 2025-02-11 07:38 | Outpatient (BNV) | payer MEDICARE, SELFPAY | PROVIDERS: Admitting Provider Physician Assistant Surgical; Emergency Provider Emergency Medicine; Visit Provider Internal Medicine Cardiovascular Disease | DX: I44.4 Left anterior fascicular block (principal) | CPT/HCPCS: 93010 ==

== ENCOUNTER → 2025-02-11 07:41 | Outpatient (BNV) | payer MEDICARE, SELFPAY | PROVIDERS: Emergency Provider Emergency Medicine; Visit Provider Radiology Diagnostic Radiology | DX: K56.609 Unspecified intestinal obstruction, unspecified as to partial versus complete obstruction (principal); Z46.59 Encounter for fitting and adjustment of other gastrointestinal appliance and device | CPT/HCPCS: 71045; 74177 ==

== ENCOUNTER 2025-02-11 11:32 | Outpatient (BNV) | payer MEDICARE, SELFPAY | END 2025-02-13 07:00 | PROVIDERS: Admitting Provider Physician Assistant Surgical; Emergency Provider Emergency Medicine; Visit Provider Radiology Diagnostic Radiology | DX: K56.609 Unspecified intestinal obstruction, unspecified as to partial versus complete obstruction (principal) | CPT/HCPCS: 74018 ==

== ENCOUNTER 2025-02-11 11:32 | Outpatient (BNV) | payer MEDICARE, SELFPAY | END 2025-02-12 09:18 | PROVIDERS: Admitting Provider Physician Assistant Surgical; Emergency Provider Emergency Medicine; Visit Provider Radiology Diagnostic Radiology | DX: K56.609 Unspecified intestinal obstruction, unspecified as to partial versus complete obstruction (principal); Z46.59 Encounter for fitting and adjustment of other gastrointestinal appliance and device | CPT/HCPCS: 74250 ==

== ENCOUNTER → 2025-02-11 11:32 | Outpatient (BNV) | payer MEDICARE, SELFPAY | PROVIDERS: Admitting Provider Physician Assistant Surgical; Emergency Provider Emergency Medicine; Visit Provider Nurse Practitioner Acute Care | DX: K56.609 Unspecified intestinal obstruction, unspecified as to partial versus complete obstruction (principal) | CPT/HCPCS: 99223; 99231; 99232; 99233 ==

== ENCOUNTER → 2025-02-11 11:32 | Outpatient (BNV) | payer MEDICARE, SELFPAY | PROVIDERS: Admitting Provider Physician Assistant Surgical; Emergency Provider Emergency Medicine; Visit Provider Surgery | DX: K56.609 Unspecified intestinal obstruction, unspecified as to partial versus complete obstruction (principal); Z98.890 Other specified postprocedural states | CPT/HCPCS: 44120; 99024; 99222; 99232; 99499 ==

== ENCOUNTER 2025-02-27 08:50 | Outpatient (AMB) | payer MEDICARE, SELFPAY ==
--- OUTSIDE RECORDS SUMMARY | 2024-11-13 03:40 | XMS_ITS ---
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 Name Role Phone Larry Acosta Primary Care Provider Results Component Value Reference Range Flag Notes LIPID PANEL WITH REFLEX TO D IRECT LDL Reviewed date:11/18/2024 08:38:14 AM Interpretation: Performing Lab:TP, [facility]-[id number] [id number] Estrada Garduno MD Notes/Report: FASTING FASTING 0 FASTING FASTING CHOLESTEROL, TOTAL 233 <200 mg/dL H HDL CHOLESTEROL 76 > OR = 50 mg/dL N TRIGLYCERIDES 158 <150 mg/dL H LDL-CHOLESTEROL 130 H Reference range: <100 Desirable range <100 mg/dL for primary prevention; <70 mg/dL for patients with CHD or diabetic patients with > or = 2 CHD risk factors. LDL-C is now calculated using the Vicente-Dawson calculation, which is a validated novel method providing better accuracy than the Friedewald equation in the estimation of LDL-C. Vicente SS et al. DAVIAN. 2013;310(19): 2873-0442 (http://education.BusyEvent.Ketto/faq/FAQ16 4) CHOL/HDLC RATIO 3.1 <5.0 (calc) N NON HDL CHOLESTEROL 157 <130 mg/dL (calc) H For patients with diabetes plus 1 major ASCVD risk factor, treating to a non-HDL-C goal of <100 mg/dL (LDL-C of <70 mg/dL) is considered a therapeutic option. COMPREHENSIVE METABOLIC BEREKET Joshua (Q-60013) Reviewed date:11/18/2024 08:38:14 AM Interpretation: Performing Lab:TP, [facility]-[id number] [id number] Estrada Garduno MD Notes/Report: FASTING FASTING 0 FASTING FASTING GLUCOSE 102 65-99 mg/dL H Fasting reference interval For someone without known diabetes, a glucose value between 100 and 125 mg/dL is consistent with prediabetes and should be confirmed with a follow-up test. UREA NITROGEN (BUN) 24 7-25 mg/dL N CREATININE 0.84 0.60-0.95 mg/dL N EGFR 67 > OR = 60 mL/min/1.73m2 N BUN/CREATININE RATIO SEE NOTE: - (calc) Not Reported: BUN and Creatinine are within reference range. SODIUM 139 135-146 mmol/L N POTASSIUM 4.4 3.5-5.3 mmol/L N CHLORIDE 104 98-110 mmol/L N CARBON DIOXIDE 27 20-32 mmol/L N CALCIUM 9.3 8.6-10.4 mg/dL N PROTEIN, TOTAL 6.3 6.1-8.1 g/dL N ALBUMIN 4.1 3.6-5.1 g/dL N GLOBULIN 2.2 1.9-3.7 g/dL (calc) N ALBUMIN/GLOBULIN RATIO 1.9 1.0-2.5 (calc) N BILIRUBIN, TOTAL 0.4 0.2-1.2 mg/dL N ALKALINE PHOSPHATASE 67 37-153 U/L N AST 16 10-35 U/L N ALT 9 6-29 U/L N VITAMIN B12/FOLATE, SERUM PA DWIGHT Reviewed date:11/18/2024 08:38:14 AM Interpretation: Performing Lab:[facility]-[id number] [id number] Estrada Garduno MD Notes/Report: FASTING FASTING 0 FASTING FASTING VITAMIN B12 371 699-6235 pg/mL N FOLATE, SERUM 13.8 N Reference Range Low: <3.4 Borderline: 3.4-5.4 Normal: >5.4 TSH W/REFLEX TO FT4 Reviewed date:11/18/2024 08:38:14 AM Interpretation: Performing Lab:[facility]-[id number] [id number] Estrada Garduno MD Notes/Report: FASTING FASTING 0 FASTING FASTING TSH W/REFLEX TO FT4 2.71 0.40-4.50 mIU/L N URINALYSIS, COMPLETE W/REFLE X TO CULTURE Reviewed date:11/18/2024 08:38:14 AM Interpretation: Performing Lab:[facility]-[id number], [id number] Estrada Garduno MD Notes/Report: FASTING FASTING 0 FASTING FASTING COLOR YELLOW YELLOW N APPEARANCE CLOUDY CLEAR A SPECIFIC GRAVITY 1.016 1.001-1.035 N PH 5.5 5.0-8.0 N GLUCOSE NEGATIVE NEGATIVE N BILIRUBIN NEGATIVE NEGATIVE N KETONES NEGATIVE NEGATIVE N OCCULT BLOOD 2+ NEGATIVE A PROTEIN TRACE NEGATIVE A NITRITE NEGATIVE NEGATIVE N LEUKOCYTE ESTERASE 3+ NEGATIVE A WBC > OR = 60 < OR = 5 /HPF A RBC 3-10 < OR = 2 /HPF A SQUAMOUS EPITHELIAL CELLS 0-5 < OR = 5 /HPF BACTERIA MANY NONE SEEN /HPF A HYALINE CAST NONE SEEN NONE SEEN /LPF N NOTE This urine was analyzed for the presence of WBC, RBC, bacteria, casts, and other formed elements. Only those elements seen were reported. CULTURE, URINE, ROUTINE Reviewed date:11/18/2024 08:38:14 AM Interpretation: Performing Lab:[id number], [id number] Estrada Garduno MD Notes/Report: FASTING FASTING 0 FASTING FASTING CULTURE, URINE, ROUTINE SEE NOTE A Micro Number: [id number] Test Status: Final Specimen Source: Urine Specimen Quality: Adequate Result: Greater than 100,000 CFU/mL of Klebsiella pneumoniae Additional non-predominating organism(s) isolated. These organisms, commonly found on external and internal genitalia, are considered colonizers. No further testing performed. K.pneumoniae INT ZACH AMOX/CLAVULANATE S 8 AMP/SULBACTAM R >=32 CULTURE, URINE, ROUTINE CEFAZOLIN R 8 1 CEFEPIME S <=0.12 CEFTAZIDIME S <=0.5 CEFTRIAXONE S <=0.25 CIPROFLOXACIN S <=0.06 GENTAMICIN S <=1 IMIPENEM S <=0.25 LEVOFLOXACIN S <=0.12 MEROPENEM S <=0.25 NITROFURANTOIN I 64 PIP/TAZOBACTAM S <=4 TRIMETHOPRIM/SULFA S <=20 S = Susceptible I = Intermediate R = Resistant NS = Not susceptible SDD = Susceptible Dose Dependent * = Not Tested NR = Not Reported NN = See Therapy Comments THERAPY COMMENTS Note 1: For uncomplicated UTI caused by E. coli, K. pneumoniae or P. mirabilis: Cefazolin is susceptible if ZACH <32 mcg/mL and predicts susceptible to the oral agents cefaclor, cefdinir, cefpodoxime, cefprozil, cefuroxime, cephalexin and loracarbef. REFLEXIVE URINE CULTURE Reviewed date:11/18/2024 08:38:14 AM Interpretation: Performing Lab:[facility]-[id number] [id number] Estrada Garduno MD Notes/Report: FASTING FASTING 0 FASTING FASTING REFLEXIVE URINE CULTURE C ULTURE INDICATED - RESULTS TO FOLLOW EXTRA LAVENDER-TOP TUBE Reviewed date:11/18/2024 08:38:14 AM Interpretation: Performing Lab:[facility]-[id number] [address] [id number] Estrada Garduno MD Notes/Report: FASTING FASTING 0 FASTING FASTING COMMENT AN EXTRA SPECIMEN WAS RECEIVED WITH NO TEST REQUESTED. THE SPECIMEN WILL BE MAINTAINED IN STORAGE IN CASE ADDITIONAL TESTING IS NEEDED. PLEASE CALL THE CLIENT SERVICE DEPARTMENT FOR FURTHER ASSISTANCE. REASON FOR VISIT Fasting labs Medications Medication SIG (Take, Route, Frequency, Duration) Notes Start Date End Date Status Biotin 1 MG Capsule Orally Active Vitamin C Active Cranberry 400 MG Tablet Orally Active Calcium 600-200 MG-UNIT Tablet Orally Active Glucosamine Chondr 500 Complex - Capsule as directed Orally Acti ve Levothyroxine Sodium 25 MCG Tablet 1 tablet in the morning on an empty stomach Orally once a day Active Lisinopril 2.5 MG Tablet 1 tablet Orally Once a day; Duration: 90 days Active Estradiol 0.5 MG Tablet 0.5 tablet Orall y once a day; Duration: 90 days Active Advil 200 MG Tablet Orally Active PreserVision AREDS - Tablet tablet Orally once a day Active Social History Sex Assigned At : Social History Observation Description Sex Assigned At Female Encounters Encounter Location Date Provider Diagnosis [facility] [address] [facility] [address] [facility] [place] [address] 11/13/2024 Larry Dave 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 ; Hypothyroidism, unspecified E03.9 ; Mixed hyperlipidemia E78.2 and Essential (primary) hypertension I10 Assessments Encounter Date Diagnosis (ICD Code) Assessment Notes Treatment Notes Treatment Clinical Notes Section Notes 11/13/2024 Polyneuropathy in diseases classified elsewhere (ICD-10 - G63) 11/13/2024 Hypothyroidism, unspecified (ICD-10 - E03.9) 11/13/2024 Mixed hyperlipidemia (ICD-10 - E78.2) 11/13/2024 Essential (primary) hypertension (ICD-10 - I10) Plan Of Treatment Next Appt Details Provider Name:Larry Acosta, 08:20:00 AM, [address] [place] [address], [id number], Provider Name:Larry Acosta, 09:00:00 AM, [facility] [place], [address], Progress Notes * Aziza FREEMANDOB:1935 (89 yo F)Acc No.[id number]:11/13/2024 Labs Patient: Krystyna jersonianzAiza Provider: Pat Acosta MD :[id number] A ge:88 Y S ex:Female Date:11/13/2024 Address:[address] [place], [place] [id number] Subjective: * Chief Complaints: * F asting labs * Medications: T akingAdvil 200 MG Tablet Orally Biotin 1 MG Capsule Orally Calcium 600-200 MG- UNIT Tablet Orally Cranberry 400 MG Tablet Orally Estradiol 0.5 MG Tablet 0.5 tablet Orally once a day Glucosamine Chondr 500 Complex - Capsule as directed Orally Levothyroxine Sodium 25 MCG Tablet 1 tablet in the morning on an empty stomach Orally once a day Lisinopril 2.5 MG Tablet 1 tablet Orally Once a day PreserVision AREDS - Tablet tablet Orally once a day Vitamin C Taking Advil 200 MG Tablet Orally Taking Biotin 1 MG Capsule Orally Taking Calcium 600-200 MG-UNIT Tablet Orally Taking Cranberry 400 MG Tablet Orally Taking Estradiol 0.5 MG Tablet 0.5 tablet Orally once a day Taking Glucosamine Chondr 500 Complex - Capsule as directed Orally Taking Levothyroxine Sodium 25 MCG Tablet 1 tablet in the morning on an empty stomach Orally once a day Taking Lisinopril 2.5 MG Tablet 1 tablet Orally Once a day Taking PreserVision AREDS - Tablet tablet Orally once a day Taking Vitamin C Assessment: * Assessment: 1. P olyneuropathy in diseases classified elsewhere - G63 2 . H ypothyroidism, unspecified - E03.9 3 . M ixed hyperlipidemia - E78.2 4 .?Essential (primary) hypertension - I10 Plan: * Treatment: ?LAB: COMPREHENSIVE METABOLIC PANEL (Q-53341) (Collection Date & Time - 11/13/2024)* Larry Acosta 11/18/2024 08:37: 48 AM EDT > will review results with patient at upcoming appointment 11/21/2024 ?LAB: URINALYSIS, COMPLETE W/REFLEX TO CULTURE (Collection Date & Time - 11/13/2024)* Larry Acosta 11/18/2024 08:37: 48 AM EDT > will review results with patient at upcoming appointment 11/21/2024 ?LAB: VITAMIN B12/FOLATE, SERUM PANEL (Collection Date & Time - 11/13/2024) * Larry Acosta 11/18/2024 08:37: 48 AM EDT > will review results with patient at upcoming appointment 11/21/2024 ?LAB: TSH W/REFLEX TO FT4 (Collection Date & Time - 11/13/2024)* Larry Acosta 11/18/2024 08:37: 48 AM EDT > will review results with patient at upcoming appointment 11/21/2024 2.?Hypothyroidism, unspecified?LAB: LIPID PANEL WITH REFLEX TO DIRECT LDL (Collection Date & Time - 11/13/2024)* Larry Acosta 11/18/2024 08:37: 48 AM EDT > will review results with patient at upcoming appointment 11/21/2024 ?LAB: COMPREHENSIVE METABOLIC PANEL (Q-59063) (Collection Date & Time - 11/13/2024)* Larry Acosta 11/18/2024 08:37: 48 AM EDT > will review results with patient at upcoming appointment 11/21/2024 ?LAB: URINALYSIS, COMPLETE W/REFLEX TO CULTURE (Collection Date & Time - 11/13/2024)* Larry Acosta 11/18/2024 08:37: 48 AM EDT > will review results with patient at upcoming appointment 11/21/2024 ?LAB: VITAMIN B12/FOLATE, SERUM PANEL (Collection Date & Time - 11/13/2024) * Rios Acostaic 11/18/2024 08:37: 48 AM EDT > will review results with patient at upcoming appointment 11/21/2024 ?LAB: TSH W/REFLEX TO FT4 (Collection Date & Time - 11/13/2024)* Rios Acostaic 11/18/2024 08:37: 48 AM EDT > will review results with patient at upcoming appointment 11/21/2024 3.?Mixed hyperlipidemia?LAB: LIPID PANEL WITH REFLEX TO DIRECT LDL (Collection Date & Time - 11/13/2024)* DaveRios cmic 11/18/2024 08:37: 48 AM EDT > will review results with patient at upcoming appointment 11/21/2024 ?LAB: COMPREHENSIVE METABOLIC PANEL (Q-20630) (Collection Date & Time - 11/13/2024)* Rios Acostaic 11/18/2024 08:37: 48 AM EDT > will review results with patient at upcoming appointment 11/21/2024 ?LAB: URINALYSIS, COMPLETE W/REFLEX TO CULTURE (Collection Date & Time - 11/13/2024)* Rios Acostaic 11/18/2024 08:37: 48 AM EDT > will review results with patient at upcoming appointment 11/21/2024 ?LAB: VITAMIN B12/FOLATE, SERUM PANEL (Collection Date & Time - 11/13/2024) * Rios Acostaic 11/18/2024 08:37: 48 AM EDT > will review results with patient at upcoming appointment 11/21/2024 ?LAB: TSH W/REFLEX TO FT4 (Collection Date & Time - 11/13/2024)* aLrry Acosta 11/18/2024 08:37: 48 AM EDT > will review results with patient at upcoming appointment 11/21/2024 4.?Essential (primary) hypertension?LAB: LIPID PANEL WITH REFLEX TO DIRECT LDL (Collection Date & Time - 11/13/2024)* DaveLarry 11/18/2024 08:37: 48 AM EDT > will review results with patient at upcoming appointment 11/21/2024 ?LAB: COMPREHENSIVE METABOLIC PANEL (Q-14929) (Collection Date & Time - 11/13/2024)* Larry Acosta 11/18/2024 08:37: 48 AM EDT > will review results with patient at upcoming appointment 11/21/2024 ?LAB: URINALYSIS, COMPLETE W/REFLEX TO CULTURE (Collection Date & Time - 11/13/2024)* Larry Acosta 11/18/2024 08:37: 48 AM EDT > will review results with patient at upcoming appointment 11/21/2024 ?LAB: VITAMIN B12/FOLATE, SERUM PANEL (Collection Date & Time - 11/13/2024) * Larry Acosta 11/18/2024 08:37: 48 AM EDT > will review results with patient at upcoming appointment 11/21/2024 ?LAB: TSH W/REFLEX TO FT4 (Collection Date & Time - 11/13/2024)* Larry Acosta 11/18/2024 08:37: 48 AM EDT > will review results with patient at upcoming appointment 11/21/2024 * Labs: * L ab: REFLEXIVE URINE CULTURE (Collection Date & Time - 11/13/2024) ?Lab: EXTRA LAVENDER-TOP TUBE (Collection Date & Time - 11/13/2024)* JADE Cuba 11/15/2024 0 8:25:28 : This order was created by the Interface. Larry Acosta 11/18/2024 08:37:48 AM EDT > will review results with patient at upcoming appointment 11/21/2024 ?Lab: CULTURE, URINE, ROUTINE (Collection Date & Time - 11/13/2024)* JADE Cuba 11/15/2024 0 8:25:28 : This order was created by the Interface. Larry Acosta 11/18/2024 08:37:48 AM EDT > will review results with patient at upcoming appointment 11/21/2024 * Electronic signature of Larry Acosta MD on 02/27/2025 at 10:25 AM EST Sign off status: Pending * Provider: Pat Acosta MD Date: 0 11/13/2024 Generated for Oleg gutierrez/lCaudio/Allanitting on: 1 04/29/2024 10:25 AM EST
--- NOTE | 2025-02-27 08:55 | A.OFFVIS_ITS ---
Vital Signs 02/27/25 09:02 Height 5 ft 3 in Weight 102 lb 15.294 oz BMI 18.2 Respiration 16 Pulse 72 Intake Visit Reasons: s/p Laparotomy, small-bowel resection Intake Note: Patient presents for post-op assessment status post s/p Laparotomy, small-bowel resection. ( 02/13/2025) Pt c/o; constipated for the first couple of days, now stool is semi-form, had some discharge, no longer has odor, denies straining, eating well, staters WBC was high and was given abx Vegetable Tier Required: No Accompanied by: Daughter Allergies codeine Allergy (Verified 02/27/25 09:02) Headache HPI HPI s/p Laparotomy, small-bowel resection: Details: [age] year old female here for postop visit. She had undergone an urgent laparotomy and small-bowel resection for bowel obstruction as an inpatient last 02/13/2025. She was discharged on postop day 8. She is currently at a rehab facility. She has good oral intake. She has good bowel movements. She has this drainage from the lower part of the incision which has been ongoing since postop but this has decreased She was started on antibiotics because of a bump in her WBC at the rehab place but she denies any fever. 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 History of laparotomy (~02/13/25) H/O: hysterectomy History of appendectomy Social History Household Members: None Housing: House Do you presently have visiting nurse or other home services: No Patient Tobacco Use Status: Never used Tobacco Advance Directives Date on File: 02/11/25 service: No Review of Systems Const Denies chills and Denies fever(s) Resp Denies cough GI Denies abdominal pain and Denies vomiting Physical Exam Const Other: Ambulating with a walker General: comfortable and no acute distress Resp Effort & Inspection: normal respiratory effort GI Other: Incision well healing, dean in place, small skin separation in the lower most part of the incision with very scanty drainage Palpation (GI): Soft to palpation, not firm, nontender and no guarding Assessment & Plan Assessment & Plan (1) S/P laparotomy: Comment: s/p exploratory laparotomy, lysis of adhesions, small bowel resection on 02/13/25 Code(s): Z98.890 - Other specified postprocedural states Category: Surgical Plan: Status post laparotomy and small-bowel resection. She is doing well. 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 I removed all her dean. This has note of some scanty drainage from the lower part of the incision but this is note of the much less compared to last week I encouraged her to increase her oral intake. She is to continue with the physical therapy. She is doing very well overall and I will see her in the office in about 2-3 weeks for another postop visit. Her daughter was with her during the visit. Coding Level of Care Code Global (79631) Diagnoses S/P laparotomy Z98.890
[2025-02-27 09:02] VITALS: PULSE 72; RESP 16; BMI 18.2
--- OUTSIDE RECORDS SUMMARY | 2025-02-27 10:25 | XMS_ITS | Data Portability ---
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 Plan of Treatment Reminders Order Date Submit Date Provider Last Modified By Organization Details Last Modified Time Details Appointments None record ed. Lab None record ed. Referral None record ed. Procedures None record ed. Surgeries None record ed. Imaging None record ed. Medication Orders None record ed. Patient TargetsNo targets recorded. Patient Instructions Encounter Date Encounter Id Patient Instructions Last Modified By Organization Details Last Modified Time 04/13/2022 [id number] upper respirator y infection (cold): care instructions Not available 04/13/2022 10:37:20 rest fluids symptomatic otc medication as directed as needed f/u with pcp if persists, worsens or as needed rtc prn Not available 04/13/2022 10:37:08 Reason for Referral None Reported. Medical Equipment None Reported. Allergies Allergen ID Allergen Name Allergen Category Reaction Reaction Severity Criticality Documentation Date Start Date Code Code System Note Provider Name and Address Organization Details Recorded Time 2550305 codeine medicatio n vomiting Not available Not available 04/13/2022 2670 RxNorm Severino rico [facility] 10:14:54 Medications Name Sig Start Date Stop Date Status Note LastModified by Organization Details LastModified Time lisinopril 2.5 mg tablet Take 1 tablet every day by oral route. active Not Available Not Available No t Available estradiol active Not Available Not Iris ilable Not Available levothyroxine 25 mcg capsule Take 1 capsule every day by oral route. active Not Available Not Available No t Available Vitals Date Recorded Body weight Body mass index (BMI) Body height Oxygen saturation Heart rate Body temperature Respiratory rate Systolic And Diastolic Provider Name and Address Organization Details Last Updated DateTime 3 05118.4 2 g 18.1 kg/m2 160.02 cm 97 % 75 /min 97.8 [degF] 14 /min 162/108 mm[Hg] Severino Herrera [facility] 3 10:18:38 Social History None recorded. Functional Status None recorded. Mental Status None recorded. Family History Nothing Reported. Medical History No medical history recorded. Gynecological HistoryNo gynecological history recorded. Obstetrics History GPAL:G 0 P 0 0 0 0 Immunizations Vaccine Type Date Status Note Provider Nam e and Address Organization Details Recorded Time Influenza, high-dose, trivalent, PF [facility] 10:09:55 COVID-19, mRNA, LNP-S, PF, 100 mcg/0.5mL dose or 50 mcg/0.25mL dose 1 [facility]13[facility] 10:09:55 Novel [id number], all formulations 0 [facility] 04[facility]13[facility]22 10:09:55 Influenza, adjuvanted, quadrivalent, PF 1 [facility] 04[facility]13[facility]22 10:09:55 Influenza, split virus, trivalent, preservative 1 [facility] 04/13[facility]22 10:09:55 Influenza, high-dose, trivalent, PF 0 [facility] 04/13/2022 10:09:55 COVID-19, mRNA, LNP-S, PF, 100 mcg/0.5mL dose or 50 mcg/0.25mL dose 1 completed CONOR Subramanian - [facility], [facility] 04/13/2022 10:09:55 COVID-19, mRNA, LNP-S, PF, 100 mcg/0.5mL dose or 50 mcg/0.25mL dose 1 completed CONOR Subramanian - [facility], [facility] 04/13/2022 10:09:55 Past Encounters Encounter ID Performer Location Encounter Start Date Encounter Closed Date Diagnosis/Indication Diagnosis SNOMED-CT Code Diagnosis ICD10 Code Diagnosis IMO Codes Diagnosis Note [id number] MD [facility] [address] [place] [id number] 04/13/2022 09:34:49 04/13/2022 10:44:34 Upper respiratory infection 97857613 J06.9 Acute. worsening. initial offered cxr however pt content with exam findings.o ffered abx but pt defers - will call back if persistsof fered rx for cough - defersdisc ussed otc med options. pt will check her current meds and look for alternate rest fluids symptomati c otc medication as directed as needed f/u with pcp if persists, worsens or as needed rtc prn Health Concerns Section Related Observation LastModified by Organization Detai ls LastModified Time None Recorded Concern Status LastModified by Organization Details LastModified Time None Recorded Advance Directives Directive None Recorded Payers Insurance Date Sequence Insurance Name Policy Number Policy Pineda Covered Member ID Pineda Member ID Guarantor Name 08/11/2022 2 [employer] (MEDICARE SUPPLEMENT) Aziza Freeman [id number] Aziza Freeman 08/11/2022 1 [place] Aziza Freeman [id number] Aziza Freeman Notes Date Note Type Note Provider Name and Address Organization Details Recorded Time 04/13/2022 text/html Acute HPIReporte d by PatientPt presents with c/o and cough x 8 days.denies fever, chills, SOB. denies GI or changes taking otc generic cough medication - a daytime and a night time pill. states nighttime med seems effective and can get some sleep but daytime not working as well and will have occasional coughing fits.pt presents at encouragement of daughter to check for pneumonia. ROS as noted in the HPI CORONAVIRUS SCREENING TOOL Are you experiencing any NEW symptom(s) listed below that is not due to another health problem Cough, shortness of breath or difficulty breathing Congestion or runny nose Is anyone else in your household experiencing any NEW symptoms No In the past 2 weeks did you have close contact (within 6 feet for at least 15 minutes) with someone with symptoms of COVID-19 or who tested positive for COVID-19 No In the past 2 weeks have you been tested for COVID-19 Yes, I tested negative Why did you get tested? Please select all that apply Had symptoms of possible COVID-19 In the past 2 weeks has someone in your household tested positive for COVID-19 No Have you ever received a dose of COVID-19 vaccine? Yes Which vaccine product did you receive? Moderna Imported from [employer] on 04/13/2022 ANDREA DAVIS [address] [facility] [address], [place], [address], [facility], [place] - [facility], [facility] 04/13/2022 10:37:23 OBGyn Episode No OBEpisode recorded.
--- OUTSIDE RECORDS SUMMARY | 2025-02-27 10:25 | XMS_ITS | Patient Health Record ---
Author Organization [facility] Address [address] [facility] [address] [facility] [address] [place] [address] Care Team Providers Care Critical Care Educator Name Role Phone Larry Acosta Primary Care Provider Allergies Allergen (clinical drug ingredient) Drug/Non Drug Allergy documented on EMR Reaction Allergy Type Onset Date Status codeine Codeine Sulfate vomiting/ headache Drug Allergy Active Results Component Value Reference Range Flag Notes LIPID PANEL WITH REFLEX TO D IRECT LDL Reviewed date:11/18/2024 08:38:14 AM Interpretation: Performing Lab:[facility], [id number], [id number] Estrada Garduno MD Notes/Report: FASTING 0 FASTING FASTING FASTING CHOLESTEROL, TOTAL 233 <200 mg/dL [...] equation in the estimation of LDL-C. Vicente HAM et al. DAVIAN. 2013;310(19): 6370-2132 (http://education.Property Owl.com/faq/FAQ16 4) CHOL/HDLC RATIO 3.1 <5.0 (calc) N NON HDL CHOLESTEROL 157 <130 mg/dL (calc) H For patients with diabetes plus 1 major ASCVD risk factor, treating to a non-HDL-C goal of <100 mg/dL (LDL-C of <70 mg/dL) is considered a therapeutic option. COMPREHENSIVE METABOLIC BEREKET Joshua ([id number]) Reviewed date:11/18/2024 08:38:14 AM Interpretation: Performing Lab:[facility][id number], [id number] Estrada Garduno MD Notes/Report: FASTING FASTING 0 [...] 60 mL/min/1.73m2 N BUN/CREATININE RATIO SEE NOTE: 6-22 (calc) Not Reported: BUN and Creatinine are [...] U/L N ALT 9 6-29 U/L N URINALYSIS, COMPLETE W/REFLE X TO CULTURE Reviewed date:11/18/2024 08:38:14 AM Interpretation: Performing Lab:[facility][id number], [id number] Estrada Garduno MD Notes/Report: FASTING FASTING 0 [...] elements. Only those elements seen were reported. VITAMIN B12/FOLATE, SERUM PA DWIGHT Reviewed date:11/18/2024 08:38:14 AM Interpretation: Performing Lab:[facility] [place] Estrada Garduno MD Notes/Report: FASTING FASTING 0 FASTING FASTING VITAMIN B12 579 559-5529 pg/mL N FOLATE, SERUM 13.8 N Reference Range Low: <3.4 Borderline: 3.4-5.4 Normal: >5.4 TSH W/REFLEX TO FT4 Reviewed date:11/18/2024 08:38:14 AM Interpretation: Performing Lab:[id number] Estrada Garduno MD Notes/Report: FASTING FASTING 0 FASTING FASTING TSH W/REFLEX TO FT4 2.71 0.40-4.50 mIU/L N CULTURE, URINE, ROUTINE Reviewed date:05/20/2024 11:33:11 AM Interpretation: Performing Lab:[facility] [place] Estrada Garduno MD Notes/Report: 0 0 0 0 0 CULTURE, URINE, ROUTINE SEE NOTE A CULTURE, URINE, ROUTINE Micro Number: [id number] Test Status: Final Specimen Source: Urine Specimen Quality: Adequate Result: Greater than 100,000 CFU/mL of Klebsiella pneumoniae K.pneumoniae INT ZACH AMOX/CLAVULANATE S 8 AMP/SULBACTAM R >=32 CEFAZOLIN NR <=4 2 CEFEPIME S <=0.12 CEFTAZIDIME S <=1 CEFTRIAXONE S <=0.25 CIPROFLOXACIN S <=0.06 GENTAMICIN S <=1 IMIPENEM S <=0.25 LEVOFLOXACIN S <=0.12 MEROPENEM S <=0.25 NITROFURANTOIN R 128 PIP/TAZOBACTAM S 8 TRIMETHOPRIM/SULFA S <=20 S = Susceptible I = Intermediate R = Resistant NS = Not susceptible SDD = Susceptible Dose Dependent * = Not Tested NR = Not Reported NN = See Therapy Comments THERAPY COMMENTS Note 1: For infections other than uncomplicated UTI caused by E. coli, K. pneumoniae or P. mirabilis: Cefazolin is resistant if ZACH > or = 8 mcg/mL. (Distinguishing susceptible versus intermediate for isolates with ZACH < or = 4 mcg/mL requires additional testing.) Note 2: For uncomplicated UTI caused by E. coli, K. pneumoniae or P. mirabilis: Cefazolin is susceptible if ZACH <32 mcg/mL and predicts susceptible to the oral agents cefaclor, cefdinir, cefpodoxime, cefprozil, cefuroxime, cephalexin and loracarbef. REFLEXIVE URINE CULTURE Reviewed date:05/20/2024 11:33:11 AM Interpretation: Performing Lab:[facility] [place] Estrada Garduno MD Notes/Report: 0 0 0 0 0 REFLEXIVE URINE CULTURE C ULTURE INDICATED - RESULTS TO FOLLOW TSH W/REFLEX TO FT4 Reviewed date:05/20/2024 11:33:11 AM Interpretation: Performing Lab:[id number] Estrada Garduno MD Notes/Report: 0 0 0 0 0 TSH W/REFLEX TO FT4 2.99 0.40-4.50 mIU/L N CBC (INCLUDES DIFF/PLT) (Q-[id number]) Reviewed date:05/20/2024 11:33:11 AM Interpretation: Performing Lab:Parisa JOHNSONa4[id number] Estrada Garduno MD Notes/Report: 0 0 0 0 0 WHITE BLOOD CELL COUNT 8.3 3.8-10.8 Thousand/uL N RED BLOOD CELL COUNT 4.34 3.80-5.10 Million/uL N HEMOGLOBIN 13.6 11.7-15.5 g/dL N HEMATOCRIT 43.6 35.0-45.0 % N MCV 100.5 80.0-100.0 fL H MCH 31.3 27.0-33.0 pg N MCHC 31.2 32.0-36.0 g/dL L For adults, a slight decrease in the calculated MCHC value (in the range of 30 to 32 g/dL) is most likely not clinically significant; however, it should be interpreted with caution in correlation with other red cell parameters and the patient's clinical condition. RDW 12.1 11.0-15.0 % N PLATELET COUNT 278 140-400 Thousand/uL N MPV 11.1 7.5-12.5 fL N ABSOLUTE NEUTROPHILS 4250 3335-9525 cells/uL N ABSOLUTE LYMPHOCYTES 3204 850-3900 cells/uL N ABSOLUTE MONOCYTES 623 200-950 cells/uL N ABSOLUTE EOSINOPHILS 191 15-500 cells/uL N ABSOLUTE BASOPHILS 33 0-200 cells/uL N NEUTROPHILS 51.2 N LYMPHOCYTES 38.6 N MONOCYTES 7.5 N EOSINOPHILS 2.3 N BASOPHILS 0.4 N COMPREHENSIVE METABOLIC PANE L ([id number]) Reviewed date:05/20/2024 11:33:11 AM Interpretation: Performing Lab:[id number], [id number] Estrada Garduno MD Notes/Report: 0 0 0 0 0 GLUCOSE 97 65-99 mg/dL N Fasting reference interval UREA NITROGEN (BUN) 15 7-25 mg/dL N CREATININE 0.82 0.60-0.95 mg/dL N EGFR 69 > OR = 60 mL/min/1.73m2 N BUN/CREATININE RATIO SEE NOTE: 6-22 (calc) Not Reported: BUN and Creatinine are within reference range. SODIUM 142 135-146 mmol/L N POTASSIUM 4.1 3.5-5.3 mmol/L N CHLORIDE 106 98-110 mmol/L N CARBON DIOXIDE 27 20-32 mmol/L N CALCIUM 9.2 8.6-10.4 mg/dL N PROTEIN, TOTAL 6.1 6.1-8.1 g/dL N ALBUMIN 4.2 3.6-5.1 g/dL N GLOBULIN 1.9 1.9-3.7 g/dL (calc) N ALBUMIN/GLOBULIN RATIO 2.2 1.0-2.5 (calc) N BILIRUBIN, TOTAL 0.5 0.2-1.2 mg/dL N ALKALINE PHOSPHATASE 77 37-153 U/L N AST 15 10-35 U/L N ALT 9 6-29 U/L N EXTRA LAVENDER-TOP TUBE Reviewed date:11/18/2024 08:38:14 AM Interpretation: Performing Lab:[facility] JOHNSON-Krctm[address] [id number] Estrada Garduno MD Notes/Report: FASTING FASTING 0 FASTING FASTING COMMENT AN EXTRA SPECIMEN WAS RECEIVED WITH NO TEST REQUESTED. THE SPECIMEN WILL BE MAINTAINED IN STORAGE IN CASE ADDITIONAL TESTING IS NEEDED. PLEASE CALL THE CLIENT SERVICE DEPARTMENT FOR FURTHER ASSISTANCE. REFLEXIVE URINE CULTURE Reviewed date:11/18/2024 08:38:14 AM Interpretation: Performing Lab:Parisa JOHNSONOaeie0191 [place] Estrada Garduno MD Notes/Report: FASTING FASTING 0 FASTING FASTING REFLEXIVE URINE CULTURE C ULTURE INDICATED - RESULTS TO FOLLOW CULTURE, URINE, ROUTINE Reviewed date:11/18/2024 08:38:14 AM Interpretation: Performing Lab:Parisa JOHNSONa4[id number] Estrada Garduno MD Notes/Report: FASTING FASTING 0 FASTING FASTING CULTURE, URINE, ROUTINE SEE NOTE A CULTURE, URINE, ROUTINE Micro Number: [id number] Test Status: Final Specimen Source: Urine Specimen Quality: Adequate Result: Greater than 100,000 CFU/mL of Klebsiella pneumoniae Additional non-predominating organism(s) isolated. These organisms, commonly found on external and internal genitalia, are considered colonizers. No further testing performed. K.pneumoniae INT ZACH AMOX/CLAVULANATE S 8 AMP/SULBACTAM R >=32 CEFAZOLIN R 8 1 CEFEPIME S <=0.12 [...] or P. mirabilis: Cefazolin is susceptible if ZAHC <32 mcg/mL and predicts susceptible to the oral agents cefaclor, cefdinir, cefpodoxime, cefprozil, cefuroxime, cephalexin and loracarbef. URINALYSIS, COMPLETE W/REFLE X TO CULTURE Reviewed date:05/20/2024 11:33:11 AM Interpretation: Performing Lab:[facility]-[id number] [id number] Estrada Garduno MD Notes/Report: 0 0 0 0 0 COLOR YELLOW YELLOW N APPEARANCE CLOUDY CLEAR A SPECIFIC GRAVITY 1.015 1.001-1.035 N PH 5.5 5.0-8.0 N GLUCOSE NEGATIVE NEGATIVE N BILIRUBIN NEGATIVE NEGATIVE N KETONES NEGATIVE NEGATIVE N OCCULT BLOOD 2+ NEGATIVE A PROTEIN NEGATIVE NEGATIVE N NITRITE POSITIVE NEGATIVE A LEUKOCYTE ESTERASE 3+ NEGATIVE A WBC 20-40 < OR = 5 /HPF A RBC 3-10 < OR = 2 /HPF A SQUAMOUS EPITHELIAL CELLS 6-10 < OR = 5 /HPF A BACTERIA MANY NONE SEEN /HPF A HYALINE CAST 0-5 NONE SEEN /LPF A NOTE This urine was analyzed for the presence of WBC, RBC, bacteria, casts, and other formed elements. Only those elements seen were reported. LIPID PANEL (Q-[id number]) Reviewed date:05/20/2024 11:33:11 AM Interpretation: Performing Lab:[facility]-[id number], [id number] Estrada Garduno MD Notes/Report: 0 0 0 0 0 CHOLESTEROL, TOTAL 247 <200 mg/dL H HDL CHOLESTEROL 82 > OR = 50 mg/dL N TRIGLYCERIDES 156 <150 mg/dL H LDL-CHOLESTEROL 136 H Reference range: <100 Desirable range <100 mg/dL for primary prevention; <70 mg/dL for patients with CHD or diabetic patients with > or = 2 CHD risk factors. LDL-C is now calculated using the Vicente-Samir calculation, which is a validated novel method providing better accuracy than the Friedewald equation in the estimation of LDL-C. Vicente HAM et al. DAVIAN. 2013;310(19): 4666-1064 (http://education.Property Owl.9DIAMOND/faq/FAQ16 4) CHOL/HDLC RATIO 3.0 <5.0 (calc) N NON HDL CHOLESTEROL 165 <130 mg/dL (calc) H For patients with diabetes plus 1 major ASCVD risk factor, treating to a non-HDL-C goal of <100 mg/dL (LDL-C of <70 mg/dL) is considered a therapeutic option. Reason For Referral No Information Medications Medication SIG (Take, Route, Frequency, Duration) Notes Start Date End Date Status Vitamin C Active Lisinopril 2.5 MG Tablet 1 tablet Orally Once a day Active Cranberry 400 MG Tablet Orally Active Estradiol 0.5 MG Tablet 0.5 tablet Orall y once a day Active Calcium 600-200 MG-UNIT Tablet Orally Active Glucosamine Chondr 500 Complex - Capsule as directed Orally Acti ve Advil 200 MG Tablet Orally Active Biotin 1 MG Capsule Orally Active Probiotic 250 MG Capsule as directed Orally Active PreserVision AREDS - Tablet tablet Orally once a day Active Levothyroxine Sodium 25 MCG Tablet 1 tablet in the morning on an empty stomach Orally once a day Active Immunizations Vaccine Route Administration Date Status Comme nts *FLUZONE HIGH DOSE QIV IM Intramuscular 01/31/2022 Adminis tered *FLUZONE HIGH DOSE QIV IM Intramuscular 12/27/2022 Adminis tered *Influenza, high dose seasonal IM Intramuscular 02/20/2020 Administered Social History Tobacco Use: Social History Observation Description Date Details (start date - stop date) Former Smoker NA - NA Sex Assigned At : Social History Observation Description Sex Assigned At Female Social History PRIOR Drugs/Alcohol Screenin gs: Social Info Question Answer Notes Alcohol Screen Did you have a drink containing alcohol in the past year? Yes How often did you have six or more drinks on one occasion in the past year? Never (0 points) How many drinks did you have on a typical day when you were drinking in the past year? 1 or 2 (0 points) How often did you have a drink containing alcohol in the past year? Four or more times a week (4 points) Points 4 Interpretation Negative Alcohol Social Info Question Answer Notes Audit C Did you have a drink containing alcohol i n the past year No Points 0 Interpretation Negative Caffeine Social Info Question Answer Notes Screening 1- Do you drink more than 2 cups of caffeine per day (coffee, tea, energy drinks, cola, pills, patches, shots)? If patient answers No to Question 1, stop questionnaire. If yes, proceed. No Total Score 0 - No problems reported Tobacco Use: Social Info Question Answer Notes Tobacco Use/Smoking Are you a former smoker How long has it been since you last smoked? > 10 years Additional Details Category Social Info Options Details Miscellaneous: Caffeine: 1 cup per day of coffee tea 3x weekly Section Notes: No alcohol. 2 glasses of win e 3-4 night per week No alcohol. 2 glasses of win e per night No alcohol No alcohol No alcohol. 2 glasses of win e 3-4 night per week No alcohol. 2 glasses of win e 3-4 night per week No alcohol. 2 glasses of win e 3-4 night per week No alcohol No alcohol No alcohol. 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) Active confirmed Problem Atherosclerosis of aorta (29986418) Aortic atherosclerosis (I70.0) Active confirmed noted on echocardiogram 05/19/2021 Problem Mixed hyperlipidemia (438667190) Hyperlipidemia, mixed (E78.2) Active confirmed Problem Hypothyroidism (51425525) Hypothyroidism, unspecified type (E03.9) Active confirmed Problem Gastroesophageal reflux disease (361928425) Gastroesophageal reflux disease, esophagitis presence not specified (K21.9) Active confirmed Problem Bilateral atherosclerosis of arteries of lower limbs (disorder) (1631097182157505 7) Atherosclerosis of [place] artery of both lower extremities, with unspecified presence of clinical manifestation (I70.203) Active confirmed noted on duplex scan 12/15/2021 Problem Menopausal and postmenopausal disorder (N95.9) Active confirmed Problem Polyneuropathy (92143200) 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 [place] [address] [place] [address] 11/13/2024 Larry Dave 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 ; Hypothyroidism, unspecified E03.9 ; Mixed hyperlipidemia E78.2 and Essential (primary) hypertension I10 [facility] [address] [place] [address] 05/13/[address] [facility] [place] [address] [place] [address] 05/22/2024 Larry Dave Abrasion, left knee, initial encounter S80.212A ; Unilateral primary osteoarthritis, left knee M17.12 ; Essential (primary) hypertension I10 ; Hypothyroidism, unspecified type E03.9 ; Neuropathy due to medical condition G63 ; Menopausal and postmenopausal disorder N95.9 and Hyperlipidemia, mixed E78.2 [facility] [place] [address] [place] [address] 11/21/2024 Larry Dave Essential (primary) hypertension I10 ; Encounter for general adult medical examination with abnormal findings Z00.01 ; Menopausal and postmenopausal disorder N95.9 ; Mixed hyperlipidemia E78.2 ; Hypothyroidism, unspecified type E03.9 ; 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 ; Prediabetes R73.03 ; Unilateral primary osteoarthritis, left knee M17.12 and Recurrent and persistent hematuria with unspecified morphologic changes N02.9 [facility] [place] [address] [place] [address] 12/24/2024 Larry Dave [facility] [place] [address] [place] [address] 03/11/2024 Larry Dave Hypothyroidism, unspecified type E03.9 [facility] [place] [address] [place] [address] 03/11/2024 Larry Dave [facility] [place] [address] [place] [address] 03/19/2024 Larry Dave [facility] [place] [address] [place] [address] 04/23/2024 Larry Dave Menopausal and postmenopausal disorder N95.9 [facility] [place] [address] [place] [address] 05/10/2024 Larry Dave Mixed hyperlipidemia E78.2 ; Essential (primary) hypertension I10 ; Hypothyroidism, unspecified E03.9 and Recurrent and persistent hematuria with unspecified morphologic changes N02.9 [facility] [place] [address] [place] [address] 06/06/2024 Larry Dave Essential (primary) hypertension I10 [facility] [place] [address] [place] [address] 06/12/2024 Larry Dave [facility] [place] [address] [place] [address] 07/15/2024 Larry Dave [facility] [place] [address] [place] [address] 07/18/2024 Larry Dave Menopausal and postmenopausal disorder N95.9 [facility] [place] [address] [place] [address] 09/16/2024 Larry Dave [facility] [place] [address] [place] [address] 11/13/2024 Larry Dave 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 ; Hypothyroidism, unspecified E03.9 ; Mixed hyperlipidemia E78.2 and Essential (primary) hypertension I10 [facility] [place] [address] [place] [address] 11/22/2024 Larry Dave [facility] [place] [address] [place] [address] 12/18/2024 Larry Acosta Assessments Encounter Date Diagnosis (ICD Code) Assessment Notes Treatment Notes Treatment Clinical Notes Section Notes 05/22/2024 Unilateral primary osteoarthritis, left knee (ICD-10 - M17.12) doing well after total knee replacement. Will continue to monitor 05/22/2024 Abrasion, left knee, initial encounter (ICD-10 - S80.212A) patient with a noninfected abrasion of the left knee. I recommended she continue to keep the lesion covered with antibiotic ointment. If she develops any evidence of infection, she will let us know 03/11/2024 Hypothyroidism, unspecified type (ICD-10 - E03.9) 04/23/2024 Menopausal and postmenopausal disorder (ICD-10 - N95.9) 05/10/2024 Mixed hyperlipidemia (ICD-10 - E78.2) 11/21/2024 Essential (primary) hypertension (ICD-10 - I10) blood pressure currently well controlled. Will continue current therapy 11/21/2024 Encounter for general adult medical examination with abnormal findings (ICD-10 - Z00.01) Patient evaluation today for Medicare annual wellness visit. Please see copies of completed annual wellness visit templates that were reviewed with the visit as well as complete review of problem and medications as well as past medical history. Routine health maintenance items were also reviewed today for this patient as well as immunizations. Reviewed with patient other items including eyes dental and dermatology reports up-to-date with these items and no concerns or follow-up needs. Reviewed ongoing routine health maintenance needs and follow-up plans. We spent several minutes but less than 30 reviewing advanced directives. Reviewed recommendations to continue to complete an annual wellness visit every year. Complete examination as well as problem and medication review is completed as outlined with today's annual wellness visit and based on this additional time and exam visit is billed with an E and M visit code also. 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 Patient is currently on willing to try weaning off of the medication 11/13/2024 Hypothyroidism, unspecified (ICD-10 - E03.9) 05/10/2024 Essential (primary) hypertension (ICD-10 - I10) 05/22/2024 Essential (primary) hypertension (ICD-10 - I10) blood pressure controlled on current therapy. Will continue current medications 11/21/2024 Mixed hyperlipidemia (ICD-10 - E78.2) she remains with moderate elevation on recent labs. This is down from prior. Will continue stress diet and exercise. Given her age, would not recommend starting statin therapy 05/10/2024 Hypothyroidism, unspecified (ICD-10 - E03.9) 05/22/2024 Hypothyroidism, unspecified type (ICD-10 - E03.9) TSH therapeutic on most recent labs. Will continue current replacement 11/13/2024 Mixed hyperlipidemia (ICD-10 - E78.2) 11/13/2024 Mixed hyperlipidemia (ICD-10 - E78.2) 11/13/2024 Essential (primary) hypertension (ICD-10 - I10) 11/13/2024 Essential (primary) hypertension (ICD-10 - I10) 11/21/2024 Hypothyroidism, unspecified type (ICD-10 - E03.9) TSH remains therapeutic. 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 I stressed the importance of controlling sugar, thyroid, B vitamin replacement if needed and avoiding alcohol to prevent progression of neuropathy 05/22/2024 Menopausal and postmenopausal disorder (ICD-10 - N95.9) she remains on low-dose estrogen. She has not willing to stop this medication. 11/21/2024 Prediabetes (ICD-10 - R73.03) fasting blood sugar mildly elevated on recent labs. Will stress diet and exercise. Will recheck fasting blood sugar and hemoglobin A1c next blood draw 05/22/2024 Hyperlipidemia, mixed (ICD-10 - E78.2) Patient with moderate elevation of lipids. This is unchanged from prior. Given her age, I would not recommend beginning statin therapy. Will continue to monitor 11/21/2024 Unilateral primary osteoarthritis, left knee (ICD-10 - M17.12) she has been doing well clinically on as needed therapy, will continue 11/21/2024 Recurrent and persistent hematuria with unspecified morphologic changes (ICD-10 - N02.9) patient with bacteria on recent UA. She is currently asymptomatic. Will continue to follow. If she begins to develop symptoms of UTI, will treat with antibiotics Plan Of Treatment Future Test Test Name Order Date ECHOCARDIOGRAM 2D PLUS M MODE DOPPLER AN D COLOR FLOW PANEL 09/21/2021 Aorta/Iliac Arterial Duplex Complete Hemoglobin A1c ([id number], Q-496) 025 LIPID PANEL WITH REFLEX TO DIRECT LDL COMPREHENSIVE METABOLIC PANEL ([id number]) 11/21/2024 CBC (INCLUDES DIFF/PLT) (Q-6399) 025 URINALYSIS, COMPLETE W/REFLEX TO CULTURE 11/21/2024 TSH W/REFLEX TO FT4 11/21/2024 Next Appt Details Provider Name:Larry Acosta, 08:20:00 AM, [facility] [place], [address], Provider Name:Larry Acosta, 09:00:00 AM, [address] [place], [address], Insurance Providers Payer Name Payer Address Payer Phone Subscriber Number Group Number Insured Name Patient Relationship to Insured Coverage Start Date Coverage End Date Medicare Aligned [address] [place] [phone] [id number] Aziza Freeman Self - patient is the insured 2 IRA [facility] Supplemental [address] [place] [address] [id number] Aziza Freeman Self - patient is the insured Medications Administered Medication Instructions Date of Administration Dosage Notes kenalog 01/31/2022 2 mL Kenalog-40 03/16/2021 40 mg knee injection Kenalog-40 06/15/2021 40 mg right knee Kenalog-40 08/11/2022 80 mg left knee Kenalog-40 12/27/2022 80 mg Kenalog-40 05/02/2023 80 mg Kenalog-40 08/10/2023 80 mg Kenalog-40 11/17/2023 80 mg Medical (General) History Medical History History ICD Code Hyperlipidemia Decreased hearing wears hearing aids Irritable bowels 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 Agrawal Prediabetes Benign microscopic hematuria Osteoarthritis Retinal detachment follows with Dr. Penn Appendicitis left eye lens replacement Serous retinal detachment, unspecified l aterality H33.20 Serous retinal detachment, unspecified l aterality M71.22 Synovial cyst of popliteal space [Guerra] , left knee undefined Surgical History Surgery Date(Month/Year) left knee replacement 03/20/2024 dialated eye exam 2020 mammogram 2020 Right shoulder replacement 2014 Appendectomies 04/18/2008 PEDRO/BSO 07/23/2004 Tonsillectomy 194 Urethral surgery for recurrent cystitis Bilateral cataract surgery follows with Dr. Leyva Laser surgery for detached retina 3 Hospitalization History Reason Date(Month/Year) Same as above
== END 2025-02-27 09:19 | disposition home or self-care (01) ==
LOC: HO.HGS 08:51
PROVIDERS: Visit Provider Surgery
DX: Z98.890 Other specified postprocedural states (principal)
CPT/HCPCS: 99024

== ENCOUNTER → 2025-02-27 08:50 | Outpatient (BNVA) | payer MEDICARE, SELFPAY | PROVIDERS: Visit Provider Surgery | DX: R10.84 Generalized abdominal pain (principal); Z98.890 Other specified postprocedural states; Z48.1 Encounter for planned postprocedural wound closure | CPT/HCPCS: 99212 ==

== ENCOUNTER 2025-03-13 09:40 | Outpatient (AMB) | payer MEDICARE, SELFPAY ==
--- NOTE | 2025-03-13 09:41 | A.OFFVIS_ITS ---
Vital Signs 03/13/25 09:48 Height 5 ft 3 in Weight 96 lb 2 oz BMI 17.0 Intake Visit Reasons: 3wk follow up Small- bowel resection Intake Note: This patient presents for three week follow-up. Pt c/o; She reports she does not have the sensitivy of urinating so she is going to the bathroom every 3 hours, reports at night when she wakes up to go to the bathroom she has a gush , urinary incontinence. Tool Maker Bench Required: No Accompanied by: Daughter Allergies codeine Allergy (Verified 03/13/25 09:50) Headache HPI HPI 3wk follow up Small- bowel resection: Details: She is here for follow up after small bowel resection for an obstruction last 02/13/2025. She says she is doing very well. She states that her appetite is back to normal and she has had very good oral intake the past few days. She has good bowel movements. She is ambulating well but says she tries to use a walker when she is out of the house. 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 History of laparotomy (~02/13/25) H/O: hysterectomy History of appendectomy Social History Household Members: None Housing: House Do you presently have visiting nurse or other home services: No Patient Tobacco Use Status: Never used Tobacco Advance Directives Date on File: 02/11/25 service: No Review of Systems Const Denies chills and Denies fever(s) Card Denies chest pain at rest Resp Denies cough GI Denies abdominal pain Physical Exam Const General: comfortable and no acute distress Resp Effort & Inspection: normal respiratory effort GI Other: Incision well healed although there is 1 small open area probably about 2-3 mm in the lower most part of the incision with granulation tissue Palpation (GI): Soft to palpation, not firm, nontender and no guarding Assessment & Plan Assessment & Plan (1) S/P laparotomy: Comment: s/p exploratory laparotomy, lysis of adhesions, small bowel resection on 02/13/25 Code(s): Z98.890 - Other specified postprocedural states Category: Surgical Plan: She is doing very well. Her incision is almost completely healed. I advised her to avoid lifting anything more than 20 lb for 2 more weeks. He is otherwise cleared to fly back to [place] next week I advised her to use her oral intake to gain back the weight that she has lost during her perioperative course. Her daughter was with her during the visit. Medications: Discontinued amoxicillin-pot clavulanate 875-125 mg Discontinued Reason: Patient Completed Course 1 tab PO Q12H 10 tabs 0RF Coding Level of Care Code Global (78754) Diagnoses S/P laparotomy Z98.890
[2025-03-13 09:48] VITALS: BMI 17.0
--- OUTSIDE RECORDS SUMMARY | 2025-03-13 11:07 | XMS_ITS | Encounter Summary ---
Author Organization [facility] Address [address] [place] [address] Care Team Providers Care Acetylene Gas Compressor Name Role Phone Viraj Mahoney MD Primary Care Provider [phone] Encounter Details Date Type Department Care Team (Late st Contact Info) Description 02/22/2025 Lab Requisition [facility] - Main Lab [address] [facility] [place] [address] Viraj Mahoney MD [address] [place] [address] Essential (primary) hypertension; Hypothyroidism, unspecified; Intestinal adhesions (bands) with complete obstruction (CMS/HCC V24, CMS/HCC V28) Social History Tobacco Use Types Packs/Day Years Used Date Smoking Tobacco: Never Assessed Comments Unknown Sex and Gender Information Value Date Recorded Sex Assigned at Not on file Legal Sex Female 7:27 PM EDT Gender Identity Not on file Sexual Orientation Not on file documented as of this encounter Plan of Treatment Not on file documented as of this encounter Procedures Procedure Name Priority Date/Time Associated Diagnosis Comments COMPLETE BLOOD COUNT Routine 02/22/2025 9:02 AM EST Essential (primary) hypertension Hypothyroidism, unspecified Intestinal adhesions (bands) with complete obstruction (CMS/HCC V24, CMS/HCC V28) COMPREHENSIVE METABOLIC PANEL Routine 02/22/2025 9:02 AM EST Essential (primary) hypertension Hypothyroidism, unspecified Intestinal adhesions (bands) with complete obstruction (CMS/HCC V24, CMS/HCC V28) documented in this encounter Results * (ABNORMAL) Comprehensive metabolic panel (02/22/2025 9:02 AM EST) Sodium 134 133 - 145 mmol/L LAB CHEMISTRY METHOD 02/22/2025 10:57 AM [facility] Potassium 4.6 3.5 - 5.5 mmol/L LAB CHEMISTRY METHOD 02/22/2025 10:57 AM [facility] Chloride 100 96 - 110 mmol/L LAB CHEMISTRY METHOD 02/22/2025 10:57 AM [facility] CO2 24 21 - 32 mmol/L LAB CHEMISTRY METHOD 02/22/2025 10:57 AM [facility] Anion Gap 10 3 - 11 LAB CHEMISTRY METHOD 02/22/2025 10:57 AM [facility] Glucose 178(H) 70 - 100 mg/dL LAB CHEMISTRY METHOD 02/22/2025 10:57 AM [facility] BUN 15 5 - 25 mg/dL LAB CHEMISTRY METHOD 02/22/2025 10:57 AM [facility] Creatinine 0.99 0.50 - 1.10 mg/dL LAB CHEMISTRY METHOD 02/22/2025 10:57 AM [facility] eGFR 55(L) >=60 mL/min/1. 73m2 LAB CHEMISTRY METHOD 02/22/2025 10:57 AM [facility] Comment:Calculation based on the Chronic Kidney Disease Epidemiology Collaboration (CKD-EPI) equation refit without adjustment for race. BUN/Creatinine Ratio 15.2 LAB CHEMISTRY METHOD 02/22/2025 10:57 AM [facility] Calcium 7.8(L) 8.5 - 10.5 mg/dL LAB CHEMISTRY METHOD 02/22/2025 10:57 AM [facility] AST (SGOT) 48(H) 10 - 42 unit/L LAB CHEMISTRY METHOD 02/22/2025 10:57 AM [facility] ALT (SGPT) 161(H) 10 - 60 unit/L LAB CHEMISTRY METHOD 02/22/2025 10:57 AM EST [facility] Alkaline Phosphatase 353(H) 42 - 121 unit/L LAB CHEMISTRY METHOD 02/22/2025 10:57 AM [facility] Total Protein 4.7(L) 6.0 - 8.0 g/dL LAB CHEMISTRY METHOD 02/22/2025 10:57 AM [facility] Albumin 2.0(L) 3.2 - 5.0 g/dL LAB CHEMISTRY METHOD 02/22/2025 10:57 AM [facility] Total Bilirubin 0.8 0.0 - 1.4 mg/dL LAB CHEMISTRY METHOD 02/22/2025 10:57 AM [facility] Blood Venous blood specimen / Unknown Venipuncture / Unknown 02/22/2025 9:02 AM EST 02/22/2025 10:19 AM EST us Viraj Mahoney MD LAB BLOOD ORDERABLES Final Resu lt [facility] [address] [place] [address], [place] [phone] * (ABNORMAL) Complete blood count (02/22/2025 9:02 AM EST) WBC 32.5(H) 4.8 - 10.8 K/mcL LAB HEMETOLOGY METHOD 02/22/2025 10:38 AM [facility] RBC 3.60(L) 3.80 - 4.80 M/mcL LAB HEMETOLOGY METHOD 02/22/2025 10:38 AM [facility] Hemoglobin 10.9(L) 11.5 - 16.0 g/dL LAB HEMETOLOGY METHOD 02/22/2025 10:38 AM [facility] Hematocrit 33.5(L) 35.0 - 47.0 % LAB HEMETOLOGY METHOD 02/22/2025 10:38 AM [facility] MCV 94.4 79.0 - 98.0 FL LAB HEMETOLOGY METHOD 02/22/2025 10:38 AM [facility] MCH 30.7 27.0 - 32.0 pcg LAB HEMETOLOGY METHOD 02/22/2025 10:38 AM [facility] MCHC 32.5 32.0 - 37.0 g/dL LAB HEMETOLOGY METHOD 02/22/2025 10:38 AM [facility] RDW 13.1 11.0 - 15.0 % LAB HEMETOLOGY METHOD 02/22/2025 10:38 AM [facility] Platelets 456(H) 130 - 400 K/mcL LAB HEMETOLOGY METHOD 02/22/2025 10:38 AM [facility] MPV 9.8 7.0 - 11.0 FL LAB HEMETOLOGY METHOD 02/22/2025 10:38 AM [facility] NRBC 0.0 <1.0 % LAB HEMETOLOGY METHOD 02/22/2025 10:38 AM [facility] NRBC Absolute 0.00 <0.10 K/mcL LAB HEMETOLOGY METHOD 02/22/2025 10:38 AM [facility] Blood Venous blood specimen / Unknown Venipuncture / Unknown 02/22/2025 9:02 AM EST 02/22/2025 10:19 AM EST us Viraj Mahoney MD LAB BLOOD ORDERABLES Final Resu lt [facility] [address] [place] [address], documented in this encounter Visit Diagnoses Diagnosis Essential (primary) hypertension Unspecified essential hypertension Hypothyroidism, unspecified Intestinal adhesions (bands) with complete obstruction (CMS/HCC V24, CMS/HCC V28) documented in this encounter Care Teams Acetylene Gas Compressor Relationship Specialty Start Date End Date Viraj Mahoney MD [address] [place] [address] PCP - General Internal Medicine 02/24/25 documented as of this encounter
--- OUTSIDE RECORDS SUMMARY | 2025-03-13 11:07 | XMS_ITS | Encounter Summary ---
Author Organization [facility] Address [address] [place] [address] Care Team Providers Care Dock Associate Name Role Phone Viraj Mahoney MD Primary Care Provider [phone] Encounter Details Date Type Department Care Team (Late st Contact Info) Description 02/26/2025 Lab Requisition [facility] - Main Lab [address] [facility] [place] [address] Viraj Mahoney MD [address] [place] [address] Hypothyroidism, unspecified; Essential (primary) hypertension; Intestinal adhesions (bands) with complete obstruction (CMS/HCC [...] Associated Diagnosis Comments COMPLETE BLOOD COUNT Routine 02/27/2025 5:10 AM EST Hypothyroidism, unspecified Essential (primary) hypertension Intestinal adhesions (bands) with complete obstruction (CMS/HCC V24, CMS/HCC V28) BASIC METABOLIC PANEL Routine 02/27/2025 5:10 AM EST Hypothyroidism, unspecified Essential (primary) hypertension Intestinal adhesions (bands) with complete obstruction (CMS/HCC V24, CMS/HCC V28) documented in this encounter Results * (ABNORMAL) Basic metabolic panel (02/27/2025 5:10 AM EST) Sodium 135 133 - 145 mmol/L 02/27/2025 11:15 AM [facility] Potassium 4.7 3.5 - 5.5 mmol/L 02/27/2025 11:15 AM [facility] Chloride 97 96 - 110 mmol/L 02/27/2025 11:15 AM [facility] CO2 27 21 - 32 mmol/L 02/27/2025 11:15 AM [facility] Anion Gap 11 3 - 11 02/27/2025 11:15 AM [facility] Glucose 78 70 - 100 mg/dL 02/27/2025 11:15 AM [facility] BUN 8 5 - 25 mg/dL 02/27/2025 11:15 AM [facility] Creatinine 0.66 0.50 - 1.10 mg/dL 02/27/2025 11:15 AM [facility] eGFR 84 >=60 mL/min/1. 73m2 02/27/2025 11:15 AM [facility] Comment:Calculation based on the Chronic Kidney Disease Epidemiology Collaboration (CKD-EPI) equation refit without adjustment for race. BUN/Creatinine Ratio 12.1 02/27/2025 11:15 AM [facility] Calcium 7.7(L) 8.5 - 10.5 mg/dL 02/27/2025 11:15 AM [facility] Blood Venous blood specimen / Unknown Venipuncture / Unknown 02/27/2025 5:10 AM EST 02/27/2025 9:19 AM EST us Viraj Mahoney MD LAB BLOOD ORDERABLES Final Resu lt [facility] [address] [place], [place] [address] [phone] * (ABNORMAL) Complete blood count (02/27/2025 5:10 AM EST) [facility] WBC 16.6(H) 4.8 - 10.8 K/mcL LAB HEMETOLOGY METHOD 02/27/2025 10:34 AM [facility] RBC 3.20(L) 3.80 - 4.80 M/mcL LAB HEMETOLOGY METHOD 02/27/2025 10:34 AM [facility] Hemoglobin 9.9(L) 11.5 - 16.0 g/dL LAB HEMETOLOGY METHOD 02/27/2025 10:34 AM [facility] Hematocrit 29.5(L) 35.0 - 47.0 % LAB HEMETOLOGY METHOD 02/27/2025 10:34 AM [facility] MCV 93.4 79.0 - 98.0 FL LAB HEMETOLOGY METHOD 02/27/2025 10:34 AM [facility] MCH 31.3 27.0 - 32.0 pcg LAB HEMETOLOGY METHOD 02/27/2025 10:34 AM [facility] MCHC 33.6 32.0 - 37.0 g/dL LAB HEMETOLOGY METHOD 02/27/2025 10:34 AM [facility] RDW 12.9 11.0 - 15.0 % LAB HEMETOLOGY METHOD 02/27/2025 10:34 AM [facility] Platelets 674(H) 130 - 400 K/mcL LAB HEMETOLOGY METHOD 02/27/2025 10:34 AM [facility] MPV 9.5 7.0 - 11.0 FL LAB HEMETOLOGY METHOD 02/27/2025 10:34 AM [facility] NRBC 0.0 <1.0 % LAB HEMETOLOGY METHOD 02/27/2025 10:34 AM EST [facility] NRBC Absolute 0.00 <0.10 K/mcL LAB HEMETOLOGY METHOD 02/27/2025 10:34 AM EST [facility] Blood Venous blood specimen / Unknown Venipuncture / Unknown 02/27/2025 5:10 AM EST 02/27/2025 9:19 AM EST Viraj Mahoney MD LAB BLOOD ORDERABLES Final Resu lt [facility] [address] [place] [address], documented in this encounter Visit Diagnoses Diagnosis Hypothyroidism, unspecified Essential (primary) hypertension Unspecified essential hypertension Intestinal adhesions (bands) with complete obstruction (CMS/HCC V24, CMS/HCC V28) documented in this encounter Care Teams Dock Associate Relationship Specialty Start Date End Date Viraj Mahoney MD [address] [place] [address] PCP - General Internal Medicine 02/24/25 documented as of this encounter
--- OUTSIDE RECORDS SUMMARY | 2025-03-13 11:07 | XMS_ITS | Encounter Summary ---
Author Organization [facility] Address [address] [place] [address] Care Team Providers Care Print Shop Chief Clerk Name Role Phone Viraj Mahoney MD Primary Care Provider [phone] Encounter Details Date Type Department Care Team (Late st Contact Info) Description 02/24/2025 Lab Requisition [facility] - Main Lab [address] [facility] [place] [address] Viraj Mahoney MD [address] [place] [address] Essential (primary) hypertension; Hypothyroidism, unspecified; [...] Associated Diagnosis Comments COMPLETE BLOOD COUNT Routine 02/24/2025 7:40 AM EST Essential (primary) hypertension Hypothyroidism, unspecified Intestinal adhesions (bands) with complete obstruction (CMS/HCC V24, CMS/HCC V28) COMPREHENSIVE METABOLIC PANEL Routine 02/24/2025 7:40 AM EST Essential (primary) hypertension Hypothyroidism, unspecified Intestinal adhesions (bands) with complete obstruction (CMS/HCC V24, CMS/HCC V28) documented in this encounter Results * (ABNORMAL) Comprehensive metabolic panel (02/24/2025 7:40 AM EST) Sodium 134 133 - 145 mmol/L LAB CHEMISTRY METHOD 02/24/2025 2:11 PM [facility] Potassium 4.2 3.5 - 5.5 mmol/L LAB CHEMISTRY METHOD 02/24/2025 2:11 PM [facility] Chloride 102 96 - 110 mmol/L LAB CHEMISTRY METHOD 02/24/2025 2:11 PM [facility] CO2 22 21 - 32 mmol/L LAB CHEMISTRY METHOD 02/24/2025 2:11 PM [facility] Anion Gap 10 3 - 11 LAB CHEMISTRY METHOD 02/24/2025 2:11 PM [facility] Glucose 68(L) 70 - 100 mg/dL LAB CHEMISTRY METHOD 02/24/2025 2:11 PM [facility] BUN 8 5 - 25 mg/dL LAB CHEMISTRY METHOD 02/24/2025 2:11 PM [facility] Creatinine 0.64 0.50 - 1.10 mg/dL LAB CHEMISTRY METHOD 02/24/2025 2:11 PM [facility] eGFR 85 >=60 mL/min/1. 73m2 LAB CHEMISTRY METHOD 02/24/2025 2:11 PM [facility] Comment:Calculation based on the Chronic Kidney Disease Epidemiology Collaboration (CKD-EPI) equation refit without adjustment for race. BUN/Creatinine Ratio 12.5 LAB CHEMISTRY METHOD 02/24/2025 2:11 PM [facility] Calcium 7.4(L) 8.5 - 10.5 mg/dL LAB CHEMISTRY METHOD 02/24/2025 2:11 PM [facility] AST (SGOT) 26 10 - 42 unit/L LAB CHEMISTRY METHOD 02/24/2025 2:11 PM [facility] ALT (SGPT) 100(H) 10 - 60 unit/L LAB CHEMISTRY METHOD 02/24/2025 2:11 PM [facility] Alkaline Phosphatase 321(H) 42 - 121 unit/L LAB CHEMISTRY METHOD 02/24/2025 2:11 PM EST [facility] Total Protein 4.9(L) 6.0 - 8.0 g/dL LAB CHEMISTRY METHOD 02/24/2025 2:11 PM [facility] Albumin 1.9(L) 3.2 - 5.0 g/dL LAB CHEMISTRY METHOD 02/24/2025 2:11 PM [facility] Total Bilirubin 0.6 0.0 - 1.4 mg/dL LAB CHEMISTRY METHOD 02/24/2025 2:11 PM [facility] Blood Venous blood specimen / Unknown Venipuncture / Unknown 02/24/2025 7:40 AM EST 02/24/2025 10:01 AM EST Viraj Mahoney MD LAB BLOOD ORDERABLES Final Resu lt [facility] [address] [place] [address], [place] [phone] * (ABNORMAL) Complete blood count (02/24/2025 7:40 AM EST) WBC 19.9(H) 4.8 - 10.8 K/mcL LAB HEMETOLOGY METHOD 02/24/2025 11:08 AM [facility] RBC 3.40(L) 3.80 - 4.80 [facility] LAB HEMETOLOGY METHOD 02/24/2025 11:08 AM [facility] Hemoglobin 10.5(L) 11.5 - 16.0 g/dL LAB HEMETOLOGY METHOD 02/24/2025 11:08 AM [facility] Hematocrit 32.3(L) 35.0 - 47.0 % LAB HEMETOLOGY METHOD 02/24/2025 11:08 AM [facility] MCV 95.3 79.0 - 98.0 FL LAB HEMETOLOGY METHOD 02/24/2025 11:08 AM [facility] MCH 31.0 27.0 - 32.0 pcg LAB HEMETOLOGY METHOD 02/24/2025 11:08 AM [facility] MCHC 32.5 32.0 - 37.0 g/dL LAB HEMETOLOGY METHOD 02/24/2025 11:08 AM [facility] RDW 13.1 11.0 - 15.0 % LAB HEMETOLOGY METHOD 02/24/2025 11:08 AM [facility] Platelets 472(H) 130 - 400 K/mcL LAB HEMETOLOGY METHOD 02/24/2025 11:08 AM [facility] MPV 10.1 7.0 - 11.0 FL LAB HEMETOLOGY METHOD 02/24/2025 11:08 AM [facility] NRBC 0.0 <1.0 % LAB HEMETOLOGY METHOD 02/24/2025 11:08 AM [facility] NRBC Absolute 0.00 <0.10 K/mcL LAB HEMETOLOGY METHOD 02/24/2025 11:08 AM [facility] Blood Venous blood specimen / Unknown Venipuncture / Unknown 02/24/2025 7:40 AM EST 02/24/2025 10:01 AM EST us Viraj Mahoney MD LAB BLOOD ORDERABLES Final Resu lt [facility] [address] [place] [address], documented in this encounter Visit Diagnoses Diagnosis Essential (primary) hypertension Unspecified essential hypertension Hypothyroidism, unspecified Intestinal adhesions (bands) with complete obstruction (CMS/HCC V24, CMS/HCC V28) documented in this encounter Care Teams Print Shop Chief Clerk Relationship Specialty Start Date End Date Viraj Mahoney MD [address] [place] [address] PCP - General Internal Medicine 02/24/25 documented as of this encounter
--- OUTSIDE RECORDS SUMMARY | 2025-03-13 11:07 | XMS_ITS | Encounter Summary ---
Author Organization [facility] Address [address] [place] [address] Care Team Providers Care Associate Director Financial Aid Name Role Phone Virja Mahoney MD Primary Care Provider [phone] Encounter Details Date Type Department Care Team (Late st Contact Info) Description 03/05/2025 Lab Requisition [facility] - Main Lab [address] [facility] [place] [address] Viraj Mahoney MD [address] [place] [address] Hypothyroidism, unspecified; Essential (primary) hypertension; [...] on file documented as of this encounter Visit Diagnoses Diagnosis Hypothyroidism, unspecified Essential (primary) hypertension Unspecified essential hypertension Intestinal adhesions (bands) with complete obstruction (CMS/HCC V24, CMS/HCC V28) documented in this encounter Care Teams Associate Director Financial Aid Relationship Specialty Start Date End Date Viraj Mahoney MD [address] [place] [address] PCP - General Internal Medicine 02/24/25 documented as of this encounter
--- OUTSIDE RECORDS SUMMARY | 2025-03-13 11:07 | XMS_ITS | Clinical Summary ---
Author Organization [address] Address [address] [place] [address] Phone Care Team Providers Care Service Desk Analyst Name Role Phone Viraj Mahoney MD Primary Care Provider [phone] Encounters Date Type Department Care Team Description 03/05/[address] [facility] Lab [address] [place] [phone] Viraj Mahoney MD Hypothyroidism, unspecified; Essential (primary) hypertension; Intestinal adhesions (bands) with complete obstruction (CMS/HCC V24, CMS/HCC V28) 02/28/[address] [facility] Lab [address] [place] [phone] Viraj Mahoney MD Hypothyroidism, unspecified; Essential (primary) hypertension; Intestinal adhesions (bands) with complete obstruction (CMS/HCC V24, CMS/HCC V28) 02/26/[address] [facility] Lab [address] [place] [phone] Viraj Mahoney MD Hypothyroidism, unspecified; Essential (primary) hypertension; Intestinal adhesions (bands) with complete obstruction (CMS/HCC V24, CMS/HCC V28) 02/24/[address] [facility] Lab [address] [place] [address] Viraj Mahoney MD Essential (primary) hypertension; Hypothyroidism, unspecified; Intestinal adhesions (bands) with complete obstruction (CMS/HCC V24, CMS/HCC V28) 02/24/[address] [facility] Lab [address] [facility] [place] [phone] Viraj Mahoney MD Urinary tract infection, site not specified; Elevated white blood cell count, unspecified 02/24/[address] [facility] Lab [address] [facility] [place] [address] Viraj Mahoney MD Elevated white blood cell count, unspecified; Urinary tract infection, site not specified 02/22/[address] [facility] Lab [address] [facility] [place] [address] Viraj Mahoney MD Essential (primary) hypertension; Hypothyroidism, unspecified; Intestinal adhesions (bands) with complete obstruction ([facility] V24, [facility] V28) from Last 3 Months Social History Tobacco Use Types Packs/Day Years Used Date Smoking Tobacco: Never Assessed Comments Unknown Sex and Gender Information Value Date Recorded Sex Assigned at Not on file Legal Sex Female 7:27 PM EDT Gender Identity Not on file Sexual Orientation Not on file Plan of Treatment Health Maintenance Due Date Last Done Comments DTaP,Tdap,and Td Vaccines (1 - Tdap) 11/18/1954 Pneumococcal Vaccine: 50+ Years (1 of 1 - PCV) 11/18/1985 Zoster Vaccines (1 of 2) 11/18/1985 RSV Immunization Adult Patients (1 - 1-dose 75+ series) 11/18/2010 Depression Screening 04/10/2024 COVID-19 Vaccine (1 - 2024- season) 2024 Influenza Vaccine (#1) 2024 Cholesterol Screening (Lipid Panel) 02/24/2025 Falls Risk Assessment 02/24/2025 Medicare Annual Wellness Visit 02/24/2025 Osteoporosis Screening (Bone Density Screening) 02/24/2025 Social Influencers of Health Screening 02/24/2025 Hypertension/CHF/CAD Annual BMP Blood Test 03/03/2026 03/03/2025, 02/27/2025, 02/24/2025, Additional history exists HIB Vaccines Aged Out No longer eligi ble based on patient's age to complete this topic HPV Vaccines Aged Out No longer eligi ble based on patient's age to complete this topic Hepatitis A Vaccines Aged Out No long er eligible based on patient's age to complete this topic Hepatitis B Vaccines Aged Out No long er eligible based on patient's age to complete this topic IPV Vaccines Aged Out No longer eligi ble based on patient's age to complete this topic MMR Vaccines Aged Out No longer eligi ble based on patient's age to complete this topic Meningococcal ACWY Vaccine Aged Out N o longer eligible based on patient's age to complete this topic Meningococcal B Vaccine Aged Out No l onger eligible based on patient's age to complete this topic RSV Immunization Patients Under 20 months Aged Out No longer eligible based on patient's age to complete this topic Varicella Vaccines Aged Out No longer eligible based on patient's age to complete this topic Procedures Procedure Name Priority Date/Time Associated Diagnosis Comments COMPREHENSIVE METABOLIC PANEL Routine 03/03/2025 5:30 AM EST Hypothyroidism, unspecified Essential (primary) hypertension Intestinal adhesions (bands) with complete obstruction (CMS/HCC V24, CMS/HCC V28) COMPLETE BLOOD COUNT Routine 03/03/2025 5:30 AM EST Hypothyroidism, unspecified Essential (primary) hypertension Intestinal adhesions (bands) with complete obstruction (CMS/HCC V24, CMS/HCC V28) BASIC METABOLIC PANEL Routine 02/27/2025 5:10 AM EST Hypothyroidism, unspecified Essential (primary) hypertension Intestinal adhesions (bands) with complete obstruction (CMS/HCC V24, CMS/HCC V28) COMPLETE BLOOD COUNT Routine 02/27/2025 5:10 AM EST Hypothyroidism, unspecified Essential (primary) hypertension Intestinal adhesions (bands) with complete obstruction (CMS/HCC V24, CMS/HCC V28) COMPREHENSIVE METABOLIC PANEL Routine 02/24/2025 7:40 AM EST Essential (primary) hypertension Hypothyroidism, unspecified Intestinal adhesions (bands) with complete obstruction (CMS/HCC V24, CMS/HCC V28) COMPLETE BLOOD COUNT Routine 02/24/2025 7:40 AM EST Essential (primary) hypertension Hypothyroidism, unspecified Intestinal adhesions (bands) with complete obstruction (CMS/HCC V24, CMS/HCC V28) URINALYSIS WITH REFLEX MICROSCOPIC Routine 02/23/2025 12:15 PM EST Urinary tract infection, site not specified Elevated white blood cell count, unspecified URINALYSIS WITH REFLEX MICROSCOPIC Routine 02/23/2025 12:15 PM EST Urinary tract infection, site not specified Elevated white blood cell count, unspecified CULTURE URINE Routine 02/23/2025 12:15 PM EST Urinary tract infection, site not specified Elevated white blood cell count, unspecified COMPREHENSIVE METABOLIC PANEL Routine 02/22/2025 9:02 AM EST Essential (primary) hypertension Hypothyroidism, unspecified Intestinal adhesions (bands) with complete obstruction (CMS/HCC V24, CMS/HCC V28) COMPLETE BLOOD COUNT Routine 02/22/2025 9:02 AM EST Essential (primary) hypertension Hypothyroidism, unspecified Intestinal adhesions (bands) with complete obstruction (CMS/HCC V24, CMS/HCC V28) from Last 3 Months Results * (ABNORMAL) Complete blood count (03/03/2025 5:30 AM EST) Only the most recent of4 resultswithin the time period is included. WBC 13.1(H) 4.8 - 10.8 K/mcL LAB HEMETOLOGY METHOD 03/03/2025 10:31 AM [facility] LAB RBC 3.30(L) 3.80 - 4.80 M/[facility] LAB HEMETOLOGY METHOD 03/03/2025 10:31 AM [facility] LAB Hemoglobin 10.2(L) 11.5 - 16.0 g/dL LAB HEMETOLOGY METHOD 03/03/2025 10:31 AM [facility] LAB Hematocrit 31.5(L) 35.0 - 47.0 % LAB HEMETOLOGY METHOD 03/03/2025 10:31 AM [facility] LAB MCV 94.6 79.0 - 98.0 FL LAB HEMETOLOGY METHOD 03/03/2025 10:31 AM EST [facility] LAB MCH 30.6 27.0 - 32.0 pcg LAB HEMETOLOGY METHOD 03/03/2025 10:31 AM [facility] LAB MCHC 32.4 32.0 - 37.0 g/dL LAB HEMETOLOGY METHOD 03/03/2025 10:31 AM EST [facility] LAB RDW 13.2 11.0 - 15.0 % LAB HEMETOLOGY METHOD 03/03/2025 10:31 AM [facility] LAB Platelets 627(H) 130 - 400 K/mcL LAB HEMETOLOGY METHOD 03/03/2025 10:31 AM [facility] LAB MPV 9.3 7.0 - 11.0 FL LAB HEMETOLOGY METHOD 03/03/2025 10:31 AM EST [facility] LAB NRBC 0.0 <1.0 % LAB HEMETOLOGY METHOD 03/03/2025 10:31 AM [facility] LAB NRBC Absolute 0.00 <0.10 K/mcL LAB HEMETOLOGY METHOD 03/03/2025 10:31 AM [facility] LAB Blood Venous blood specimen / Unknown Venipuncture / Unknown 03/03/2025 5:30 AM EST 03/03/2025 10:11 AM EST us Viraj Mahoney MD LAB BLOOD ORDERABLES Final Resu lt [facility] [address] [place] [address], * (ABNORMAL) Comprehensive metabolic panel (03/03/2025 5:30 AM EST) Only the most recent of3 resultswithin the time period is included. Sodium 138 133 - 145 mmol/L 03/03/2025 11:16 AM [facility] LAB Potassium 4.5 3.5 - 5.5 mmol/L 03/03/2025 11:16 AM [facility] LAB Chloride 102 96 - 110 mmol/L 03/03/2025 11:16 AM [facility] CO2 25 21 - 32 mmol/L 03/03/2025 11:16 AM [facility] LAB Anion Gap 11 3 - 11 03/03/2025 11:16 AM [facility] Glucose 78 70 - 100 mg/dL 03/03/2025 11:16 AM [facility] BUN 8 5 - 25 mg/dL 03/03/2025 11:16 AM [facility] Creatinine 0.65 0.50 - 1.10 mg/dL 03/03/2025 11:16 AM [facility] LAB eGFR 84 >=60 mL/min/1. 73m2 03/03/2025 11:16 AM [facility] LAB Comment:Calculation based on the Chronic Kidney Disease Epidemiology Collaboration (CKD-EPI) equation refit without adjustment for race. BUN/Creatinine Ratio 12.3 03/03/2025 11:16 AM [facility] Calcium 7.3(L) 8.5 - 10.5 mg/dL 03/03/2025 11:16 AM [facility] AST (SGOT) 16 10 - 42 unit/L 03/03/2025 11:16 AM [facility] ALT (SGPT) 15 10 - 60 unit/L 03/03/2025 11:16 AM [facility] Alkaline Phosphatase 137(H) 42 - 121 unit/L 03/03/2025 11:16 AM [facility] Total Protein 4.4(L) 6.0 - 8.0 g/dL 03/03/2025 11:16 AM [facility] Albumin 2.6(L) 3.2 - 5.0 g/dL 03/03/2025 11:16 AM [facility] Total Bilirubin 0.2 0.0 - 1.4 mg/dL 03/03/2025 11:16 AM [facility] Blood Venous blood specimen / Unknown Venipuncture / Unknown 03/03/2025 5:30 AM EST 03/03/2025 10:11 AM EST us Viraj Mahoney MD LAB BLOOD ORDERABLES Final Resu lt [facility] [address] [place] [address], [place] [phone] * (ABNORMAL) Basic metabolic panel (02/27/2025 5:10 AM EST) Sodium 135 133 - 145 mmol/L 02/27/2025 11:15 AM [facility] Potassium 4.7 3.5 - 5.5 mmol/L 02/27/2025 11:15 AM [facility] Chloride 97 96 - 110 mmol/L 02/27/2025 11:15 AM [facility] CO2 27 21 - 32 mmol/L 02/27/2025 11:15 AM [facility] Anion Gap 11 3 - 11 02/27/2025 11:15 AM [facility] Glucose 78 70 - 100 mg/dL 02/27/2025 11:15 AM [facility] BUN 8 5 - 25 mg/dL 02/27/2025 11:15 AM [facility] Creatinine 0.66 0.50 - 1.10 mg/dL 02/27/2025 11:15 AM [facility] LAB eGFR 84 >=60 mL/min/1. 73m2 02/27/2025 11:15 AM [facility] LAB Comment:Calculation based on the Chronic Kidney Disease Epidemiology Collaboration (CKD-EPI) equation refit without adjustment for race. BUN/Creatinine Ratio 12.1 02/27/2025 11:15 AM [facility] Calcium 7.7(L) 8.5 - 10.5 mg/dL 02/27/2025 11:15 AM [facility] LAB Blood Venous blood specimen / Unknown Venipuncture / Unknown 02/27/2025 5:10 AM EST 02/27/2025 9:19 AM EST us Viraj Mahoney MD LAB BLOOD ORDERABLES Final Resu lt [facility] [address] [place] [address], [place] [phone] * (ABNORMAL) Urinalysis with reflex microscopic (02/23/2025 12:15 PM EST) Specific [place] Urine 1.009 1.003 - 1.030 LAB URINALYSIS - AUTOMATED METHOD 02/24/2025 10:59 AM [facility] pH, Urine 6.0 5.0 - 8.0 pH LAB URINALYSIS - AUTOMATED METHOD 02/24/2025 10:59 AM [facility] Leukocytes, Urine Negative Negative LAB URINALYSIS - AUTOMATED METHOD 02/24/2025 10:59 AM [facility] Nitrite, Urine Negative Negative LAB URINALYSIS - AUTOMATED METHOD 02/24/2025 10:59 AM [facility] Protein, Urine Trace <=Trace mg/dL LAB URINALYSIS - AUTOMATED METHOD 02/24/2025 10:59 AM [facility] Glucose, Urine Negative Negative mg/dL LAB URINALYSIS - AUTOMATED METHOD 02/24/2025 10:59 AM [facility] Ketones, Urine Negative Negative mg/dL LAB URINALYSIS - AUTOMATED METHOD 02/24/2025 10:59 AM [facility] Urobilinogen , Urine 1.0 0.2 - 1.0 mg/dL LAB URINALYSIS - AUTOMATED METHOD 02/24/2025 10:59 AM [facility] Bilirubin, Urine Negative Negative LAB URINALYSIS - AUTOMATED METHOD 02/24/2025 10:59 AM [facility] Blood, Urine Small(A) Negative LAB URINALYSIS - AUTOMATED METHOD 02/24/2025 10:59 AM [facility] RBC, Urine 10(H) 0 - 4 /HPF 02/24/2025 10:59 AM [facility] WBC, Urine 10(H) 0 - 4 /HPF 02/24/2025 10:59 AM [facility] Squamous Epithelial, Urine 2 0 - 60 /LPF 02/24/2025 10:59 AM [facility] Non-Squamous Epithelial, Urine 2-5 Transitional epithelial cells. /LPF 02/24/2025 10:59 AM [facility] Bacteria, Urine Few(A) Negative /HPF 02/24/2025 10:59 AM [facility] Other Casts, Urine 2-5 Coarse Granular casts. /LPF 02/24/2025 10:59 AM [facility] Urine Urine specimen obtained by clean catch procedure / Unknown Non-blood Collection / Unknown 02/23/2025 12:15 PM EST 02/24/2025 10:09 AM EST us Viraj Mahoney MD LAB URINE ORDERABLES Final Resu lt [facility] [address] [place] [address], [place] [phone] * Culture urine (02/23/2025 12:15 PM EST) Culture, Urine <10,000 cfu/ml, insignificant count, no further workup. 02/25/2025 9:56 AM EST [facility] Urine Urine specimen obtained by clean catch procedure / Unknown Non-blood Collection / Unknown 02/23/2025 12:15 PM EST 02/24/2025 10:09 AM EST Viraj Mahoney MD LAB MICROBIOLOGY - GENERAL YAZ SYED Final Result [facility] [address] [place] [address], [place] [phone] from Last 3 Months Insurance [facility] [place] [id number] Care Teams Service Desk Analyst Relationship Specialty Start Date End Date Viraj Mahoney MD [address] [place] [address] PCP - General Internal Medicine 02/24/25
--- OUTSIDE RECORDS SUMMARY | 2025-03-13 11:07 | XMS_ITS | Encounter Summary ---
Author Organization [facility] Address [address] [place] [address] Care Team Providers Care Manufacturing Plant Controller Name Role Phone Viraj Mahoney MD Primary Care Provider [phone] Encounter Details Date Type Department Care Team (Late st Contact Info) Description 02/24/2025 Lab Requisition [facility] - [facility] Lab [address] [facility] [employer] [place] [phone] Viraj Mahoney MD [address] [place] [address] Elevated white blood cell count, unspecified; Urinary tract infection, site not specified Social History Tobacco Use Types Packs/Day Years Used Date Smoking Tobacco: Never Assessed Comments Unknown Sex and Gender Information Value Date Recorded Sex Assigned at Not on file Legal Sex Female 7:27 PM EDT Gender Identity Not on file Sexual Orientation Not on file documented as of this encounter Plan of Treatment Not on file documented as of this encounter Visit Diagnoses Diagnosis Elevated white blood cell count, unspecified Urinary tract infection, site not specified documented in this encounter Care Teams Manufacturing Plant Controller Relationship Specialty Start Date End Date Viraj Mahoney MD [address] [place] [phone] PCP - General Internal Medicine 02/24/25 documented as of this encounter
--- OUTSIDE RECORDS SUMMARY | 2025-03-13 11:07 | XMS_ITS | Encounter Summary ---
Author Organization [facility] Address [address] [place] [address] Care Team Providers Care Cabin Agent Name Role Phone Viraj Mahoney MD Primary Care Provider [phone] Encounter Details Date Type Department Care Team (Late st Contact Info) Description 02/28/2025 Lab Requisition [facility] - Main Lab [address] [facility] [place] [address] Viraj Mahoney MD [address] [place] [address] Hypothyroidism, unspecified; Essential (primary) hypertension; [...] Associated Diagnosis Comments COMPLETE BLOOD COUNT Routine 03/03/2025 5:30 AM EST Hypothyroidism, unspecified Essential (primary) hypertension Intestinal adhesions (bands) with complete obstruction (CMS/HCC V24, CMS/HCC V28) COMPREHENSIVE METABOLIC PANEL Routine 03/03/2025 5:30 AM EST Hypothyroidism, unspecified Essential (primary) hypertension Intestinal adhesions (bands) with complete obstruction (CMS/HCC V24, CMS/HCC V28) documented in this encounter Results * (ABNORMAL) Comprehensive metabolic panel (03/03/2025 5:30 AM EST) Sodium 138 133 - 145 mmol/L 03/03/2025 11:16 AM [facility] Potassium 4.5 3.5 - 5.5 mmol/L 03/03/2025 11:16 AM [facility] Chloride 102 96 - 110 mmol/L 03/03/2025 11:16 AM [facility] CO2 25 21 - 32 mmol/L 03/03/2025 11:16 AM [facility] Anion Gap 11 3 - 11 03/03/2025 11:16 AM [facility] Glucose 78 70 - 100 mg/dL 03/03/2025 11:16 AM [facility] BUN 8 5 - 25 mg/dL 03/03/2025 11:16 AM [facility] Creatinine 0.65 0.50 - 1.10 mg/dL 03/03/2025 11:16 AM [facility] eGFR 84 >=60 mL/min/1. 73m2 03/03/2025 11:16 AM [facility] Comment:Calculation based on the Chronic Kidney Disease Epidemiology Collaboration (CKD-EPI) equation refit without adjustment for race. BUN/Creatinine Ratio 12.3 03/03/2025 11:16 AM [facility] Calcium 7.3(L) 8.5 - 10.5 mg/dL 03/03/2025 11:16 AM [facility] AST (SGOT) 16 10 - 42 unit/L 03/03/2025 11:16 AM [facility] ALT (SGPT) 15 10 - 60 unit/L 03/03/2025 11:16 AM [facility] Alkaline Phosphatase 137(H) 42 - 121 unit/L 03/03/2025 11:16 AM [facility] Total Protein 4.4(L) 6.0 - 8.0 g/dL 03/03/2025 11:16 AM [facility] Albumin 2.6(L) 3.2 - 5.0 g/dL 03/03/2025 11:16 AM [facility] Total Bilirubin 0.2 0.0 - 1.4 mg/dL 03/03/2025 11:16 AM [facility] Blood Venous blood specimen / Unknown Venipuncture / Unknown 03/03/2025 5:30 AM EST 03/03/2025 10:11 AM EST us Viraj Mahoney MD LAB BLOOD ORDERABLES Final Resu lt [facility] [address] [place] [address], [place] [phone] * (ABNORMAL) Complete blood count (03/03/2025 5:30 AM EST) WBC 13.1(H) 4.8 - 10.8 K/mcL LAB HEMETOLOGY METHOD 03/03/2025 10:31 AM [facility] RBC 3.30(L) 3.80 - 4.80 M/mcL LAB HEMETOLOGY METHOD 03/03/2025 10:31 AM [facility] Hemoglobin 10.2(L) 11.5 - 16.0 g/dL LAB HEMETOLOGY METHOD 03/03/2025 10:31 AM [facility] Hematocrit 31.5(L) 35.0 - 47.0 % LAB HEMETOLOGY METHOD 03/03/2025 10:31 AM [facility] MCV 94.6 79.0 - 98.0 FL LAB HEMETOLOGY METHOD 03/03/2025 10:31 AM [facility] MCH 30.6 27.0 - 32.0 pcg LAB HEMETOLOGY METHOD 03/03/2025 10:31 AM EST [facility] MCHC 32.4 32.0 - 37.0 g/dL LAB HEMETOLOGY METHOD 03/03/2025 10:31 AM [facility] RDW 13.2 11.0 - 15.0 % LAB HEMETOLOGY METHOD 03/03/2025 10:31 AM [facility] Platelets 627(H) 130 - 400 K/mcL LAB HEMETOLOGY METHOD 03/03/2025 10:31 AM EST [facility] MPV 9.3 7.0 - 11.0 FL LAB HEMETOLOGY METHOD 03/03/2025 10:31 AM [facility] NRBC 0.0 <1.0 % LAB HEMETOLOGY METHOD 03/03/2025 10:31 AM [facility] NRBC Absolute 0.00 <0.10 K/mcL LAB HEMETOLOGY METHOD 03/03/2025 10:31 AM [facility] Blood Venous blood specimen / Unknown Venipuncture / Unknown 03/03/2025 5:30 AM EST 03/03/2025 10:11 AM EST us Viraj Mahoney MD LAB BLOOD ORDERABLES Final Resu lt [facility] [address] [place] [address], documented in this encounter Visit Diagnoses Diagnosis Hypothyroidism, unspecified Essential (primary) hypertension Unspecified essential hypertension Intestinal adhesions (bands) with complete obstruction (CMS/HCC V24, CMS/HCC V28) documented in this encounter Care Teams Cabin Agent Relationship Specialty Start Date End Date Viraj Mahoney MD [address] [place] [address] PCP - General Internal Medicine 02/24/25 documented as of this encounter
--- OUTSIDE RECORDS SUMMARY | 2025-03-13 11:07 | XMS_ITS | Encounter Summary ---
Author Organization [facility] Address [address] [place] [address] Care Team Providers Care Aircraft Designer Name Role Phone Viraj Mahoney MD Primary Care Provider [phone] Encounter Details Date Type Department Care Team (Late st Contact Info) Description 02/24/[address] [facility] - Main Lab [address] [facility] [place] [address] Viraj Mahonye MD [address] [place] [address] Urinary tract infection, site not specified; Elevated white blood cell count, unspecified Social History Tobacco Use Types Packs/Day Years [...] Procedure Name Priority Date/Time Associated Diagnosis Comments URINALYSIS WITH REFLEX MICROSCOPIC Routine 02/23/2025 12:15 PM EST Urinary tract infection, site not specified Elevated white blood cell count, unspecified URINALYSIS WITH REFLEX MICROSCOPIC Routine 02/23/2025 12:15 PM EST Urinary tract infection, site not specified Elevated white blood cell count, unspecified CULTURE URINE Routine 02/23/2025 12:15 PM EST Urinary tract infection, site not specified Elevated white blood cell count, unspecified documented in this encounter Results * (ABNORMAL) Urinalysis with reflex microscopic (02/23/2025 12:15 PM EST) Specific [place] Urine 1.009 1.003 - 1.030 LAB URINALYSIS - AUTOMATED METHOD 02/24/2025 10:59 AM [facility] pH, Urine 6.0 5.0 - 8.0 pH LAB URINALYSIS - AUTOMATED METHOD 02/24/2025 10:59 AM [facility] Leukocytes, Urine Negative Negative LAB URINALYSIS - AUTOMATED METHOD 02/24/2025 10:59 AM [facility] Nitrite, Urine Negative Negative LAB URINALYSIS - AUTOMATED METHOD 02/24/2025 10:59 AM [facility] Protein, Urine Trace <=Trace mg/dL LAB URINALYSIS - AUTOMATED METHOD 02/24/2025 10:59 AM [facility] Glucose, Urine Negative Negative mg/dL LAB URINALYSIS - AUTOMATED METHOD 02/24/2025 10:59 AM [facility] Ketones, Urine Negative Negative mg/dL LAB URINALYSIS - AUTOMATED METHOD 02/24/2025 10:59 AM [facility] Urobilinogen , Urine 1.0 0.2 - 1.0 mg/dL LAB URINALYSIS - AUTOMATED METHOD 02/24/2025 10:59 AM [facility] Bilirubin, Urine Negative Negative LAB URINALYSIS - AUTOMATED METHOD 02/24/2025 10:59 AM [facility] Blood, Urine Small(A) Negative LAB URINALYSIS - AUTOMATED METHOD 02/24/2025 10:59 AM [facility] RBC, Urine 10(H) 0 - 4 /HPF 02/24/2025 10:59 AM [facility] WBC, Urine 10(H) 0 - 4 /HPF 02/24/2025 10:59 AM [facility] Squamous Epithelial, Urine 2 0 - 60 /LPF 02/24/2025 10:59 AM [facility] Non-Squamous Epithelial, Urine 2-5 Transitional epithelial cells. /LPF 02/24/2025 10:59 AM EST [facility] Bacteria, Urine Few(A) Negative /HPF 02/24/2025 10:59 AM EST [facility] Other Casts, Urine 2-5 Coarse Granular casts. /LPF 02/24/2025 10:59 AM [facility] Urine Urine specimen obtained by clean catch procedure / Unknown Non-blood Collection / Unknown 02/23/2025 12:15 PM EST 02/24/2025 10:09 AM EST us Viraj Mahoney MD LAB URINE ORDERABLES Final Resu lt Performing Organization Address City/[facility]/ZIP Co de Phone Number [facility] [address] [place] [address], [place] [phone] * Culture urine (02/23/2025 12:15 PM EST) Culture, Urine <10,000 cfu/ml, insignificant count, no further workup. 02/25/2025 9:56 AM [facility] Urine Urine specimen obtained by clean catch procedure / Unknown Non-blood Collection / Unknown 02/23/2025 12:15 PM EST 02/24/2025 10:09 AM EST us Viraj Mahoney MD LAB [facility] Final Result [facility] [address] [place] [address], [place] [phone] documented in this encounter Visit Diagnoses Diagnosis Urinary tract infection, site not specified Elevated white blood cell count, unspecified documented in this encounter Care Teams Aircraft Designer Relationship Specialty Start Date End Date Viraj Mahoney MD [address] [place] [address] PCP - General Internal Medicine 02/24/25 documented as of this encounter
== END 2025-03-13 10:01 | disposition home or self-care (01) ==
LOC: HO.HGS 09:40
PROVIDERS: Visit Provider Surgery
DX: Z98.890 Other specified postprocedural states (principal)
CPT/HCPCS: 99024

== ENCOUNTER → 2025-03-13 09:40 | Outpatient (BNVA) | payer MEDICARE, SELFPAY | PROVIDERS: Visit Provider Surgery | DX: Z98.890 Other specified postprocedural states (principal) | CPT/HCPCS: 99212 ==